=== PATIENT | male | born 1955 | race Caucasian/White ===

== ENCOUNTER 2018-02-04 09:53 | Emergency (ER) | payer OTHER ==
[~2018-02-04] VITALS: Ht 190.5 cm; Wt 180.5 kg
[~2018-02-04 09:53] MED LIST: ASPI81EC; ASPI81EC PO; ATOR40TA PO; Aspirin EC81 MG PO; CARV6.25 PO; CIPR500 PO; Clindamycin HC300 MG PO; Clotrimazole AF30 GM TOP; Culturelle1 CAP PO; FURO40 PO; INSUASPI SC; INSULANPEN SC; LEVEMIR FL100 UNIT/1 SC; LEVO750 PO; LISI5 PO; METF500 PO; Mupirocin22 GM TOP; NYST100P TOP; Novolog100 UNIT/2 SC; POTA10T PO; POTCHL20ER PO; PRED10 PO; Percocet 5-3251 EACH PO; SIMV40 PO
[2018-02-04] MEDS ORDERED: LISI20 PO (10:25)
[2018-02-04] MEDS ORDERED: PIOG15 PO (10:25)
[2018-02-04 10:37] LABS: BASOPHILS ABSOLUTE AUTO 0.06 K/mm3 (0.00-0.23); BASOPHILS PERCENT AUTO 1 % (0-2); EOSINOPHILS ABSOLUTE AUTO 0.12 K/mm3 (0.00-0.68); EOSINOPHILS PERCENT AUTO 1 % (0-6); Hematocrit 42.2 % (37.0-53.0); IMMATURE GRAN ABSOLUTE AUTO 0.05 K/mm3 (0.00-0.10); IMMATURE GRAN PERCENT AUTO 1 % (0-1); LYMPHOCYTES ABSOLUTE AUTO 1.38 K/mm3 (0.84-5.20); LYMPHOCYTES PERCENT AUTO 16 % (21-46); MONOCYTES ABSOLUTE AUTO 0.59 K/mm3 (0.16-1.47); MONOCYTES PERCENT AUTO 7 % (4-13); Mean Corpuscular HGB 27.7 pg (26.0-34.0); Mean Corpuscular HGB Conc 30.8 g/dL (31.5-36.5); Mean Corpuscular Volume 90 fL (80-100); Mean Platelet Volume 10.8 fL (9.1-12.4); NEUTROPHILS ABSOLUTE AUTO 6.46 K/mm3 (1.96-9.15); NEUTROPHILS PERCENT AUTO 75 % (41-73); Platelet Count 260 K/mm3 (150-400); RDW Coefficient Variation 14.6 % (11.7-14.2); White Blood Cell Count 8.66 K/mm3 (4.00-11.30)
[2018-02-04 10:51] LABS: Anion Gap 8 mmol/L (6-16); Blood Urea Nitrogen 17 mg/dL (8-24); Bun/Creatinine Ratio 25.1 (12.0-20.0); CO2, Blood 27 mmol/L (21-32); Calcium, Blood 8.9 mg/dL (8.5-10.1); Chloride, Blood 104 mmol/L (98-108); Creatinine, Blood 0.68 mg/dL (0.60-1.20); Glomerular Filtration Rate >60 (60-); Glucose, Blood 199 mg/dL (70-99); Potassium, Blood 4.4 mmol/L (3.5-5.5); Sodium, Blood 139 mmol/L (136-145); Troponin I <0.015 ng/mL (0.000-0.040)
[2018-02-04] MEDS ORDERED: Prinivil5 MG PO (12:20)
[2018-02-04] MEDS ORDERED: Lasix40 MG PO (12:20)
== END 2018-02-04 12:50 | disposition home or self-care (01) ==
LOC: ER 09:53
PROVIDERS: Emergency Medicine
DX: I11.0 Hypertensive heart disease with heart failure (principal); I50.9 Heart failure, unspecified; E66.01 Morbid (severe) obesity due to excess calories; E11.9 Type 2 diabetes mellitus without complications; I25.2 Old myocardial infarction; Z79.899 Other long term (current) drug therapy; Z79.4 Long term (current) use of insulin; Z79.82 Long term (current) use of aspirin; Z68.42 Body mass index [BMI] 45.0-49.9, adult
CPT/HCPCS: 36415; 71046; 80048; 83880; 84484; 85025; 93005; 93010; 99283

== ENCOUNTER → 2018-05-03 | Outpatient (CLI) | payer OTHER ==
[~2018-05-03] MED LIST changes: +LISI20 PO; +Lasix40 MG PO; +PIOG15 PO; +Prinivil5 MG PO
== END | disposition home or self-care (01) ==
LOC: LAB SHORT 09:50 → LAB 09:50
DX: L03.116 Cellulitis of left lower limb (principal)
CPT/HCPCS: 87070; 87077; 87147; 87186; 87205

== ENCOUNTER → 2019-02-25 | Outpatient (CLI) | payer OTHER ==
[~2019-02-25] MED LIST changes: +ALBU90OI INH; +SPIR25 PO; +TIOT18 INH
== END | disposition home or self-care (01) ==
LOC: LAB SHORT 14:41 → LAB HH 14:41
DX: E11.621 Type 2 diabetes mellitus with foot ulcer (principal); L97.422 Non-pressure chronic ulcer of left heel and midfoot with fat layer exposed; I87.2 Venous insufficiency (chronic) (peripheral)
CPT/HCPCS: 87070; 87075; 87076; 87077; 87147; 87185; 87186; 87205

== ENCOUNTER 2019-03-06 03:36 | Emergency (ER) | payer OTHER ==
[~2019-03-06] VITALS: Ht 193 cm; Wt 179.6 kg
[2019-03-06] MEDS ORDERED: BASAGLAR K100 UNIT/1 SC (04:28)
[2019-03-06] MEDS ORDERED: ALLO300 PO (04:29)
[2019-03-06] MEDS ORDERED: TIOT18 INH (04:32)
[2019-03-06] MEDS ORDERED: CARV25 PO (04:32)
[2019-03-06] MEDS ORDERED: SPIR25 PO (04:33)
[2019-03-06] MEDS ORDERED: SIMV40 PO (04:33)
[2019-03-06] MEDS ORDERED: FURO40 PO (04:33)
[2019-03-06] MEDS ORDERED: Novolog100 UNIT/1 SC (04:36)
[2019-03-06] MEDS ORDERED: LISI5 PO (04:37)
== END 2019-03-06 05:40 | disposition home or self-care (01) ==
LOC: ER 03:36
DX: L89.623 Pressure ulcer of left heel, stage 3 (principal); E11.622 Type 2 diabetes mellitus with other skin ulcer; Z79.4 Long term (current) use of insulin; Z79.899 Other long term (current) drug therapy; I25.2 Old myocardial infarction
CPT/HCPCS: 99283

== ENCOUNTER 2019-03-12 08:00 | Day surgery (SDC) | payer OTHER ==
[~2019-03-12 08:00] MED LIST changes: +ALLO300 PO; +BASAGLAR K100 UNIT/1 SC; +CARV25 PO; +Novolog100 UNIT/1 SC
== END 2019-03-12 22:47 | disposition home or self-care (01) ==
LOC: WOUND 08:00
DX: E11.621 Type 2 diabetes mellitus with foot ulcer (principal); L97.522 Non-pressure chronic ulcer of other part of left foot with fat layer exposed; L97.519 Non-pressure chronic ulcer of other part of right foot with unspecified severity; E11.622 Type 2 diabetes mellitus with other skin ulcer; L97.819 Non-pressure chronic ulcer of other part of right lower leg with unspecified severity; L97.821 Non-pressure chronic ulcer of other part of left lower leg limited to breakdown of skin; E11.21 Type 2 diabetes mellitus with diabetic nephropathy; I87.2 Venous insufficiency (chronic) (peripheral); E11.42 Type 2 diabetes mellitus with diabetic polyneuropathy; J44.9 Chronic obstructive pulmonary disease, unspecified; E13.59 Other specified diabetes mellitus with other circulatory complications; G47.33 Obstructive sleep apnea (adult) (pediatric); I11.0 Hypertensive heart disease with heart failure; I50.9 Heart failure, unspecified; E66.9 Obesity, unspecified; M10.9 Gout, unspecified
CPT/HCPCS: 87070; 87075; 87077; 87186; 87205; G0463

== ENCOUNTER 2019-03-20 14:21 | Day surgery (SDC) | payer OTHER | END 2019-03-20 23:03 | disposition home or self-care (01) | LOC: WOUND 14:21 | DX: E11.621 Type 2 diabetes mellitus with foot ulcer (principal); E11.622 Type 2 diabetes mellitus with other skin ulcer; L97.522 Non-pressure chronic ulcer of other part of left foot with fat layer exposed; L97.821 Non-pressure chronic ulcer of other part of left lower leg limited to breakdown of skin; E11.42 Type 2 diabetes mellitus with diabetic polyneuropathy; E11.21 Type 2 diabetes mellitus with diabetic nephropathy; I87.2 Venous insufficiency (chronic) (peripheral); I11.0 Hypertensive heart disease with heart failure; I50.9 Heart failure, unspecified; J44.9 Chronic obstructive pulmonary disease, unspecified; G47.33 Obstructive sleep apnea (adult) (pediatric); E66.9 Obesity, unspecified; Z68.42 Body mass index [BMI] 45.0-49.9, adult ==

== ENCOUNTER 2019-04-15 07:11 | Inpatient (IN) | payer OTHER ==
[~2019-04-15] VITALS: Ht 190.5 cm; Wt 145.5 kg
[2019-04-15 07:35] LABS: BASOPHILS ABSOLUTE AUTO 0.05 K/mm3 (0.00-0.23); BASOPHILS PERCENT AUTO 0 % (0-2); EOSINOPHILS PERCENT AUTO 0 % (0-6); Hematocrit 42.9 % (37.0-53.0); Hemoglobin 13.1 g/dL (13.5-17.5); IMMATURE GRAN ABSOLUTE AUTO 0.26 K/mm3 (0.00-0.10); IMMATURE GRAN PERCENT AUTO 1 % (0-1); LYMPHOCYTES ABSOLUTE AUTO 0.84 K/mm3 (0.84-5.20); LYMPHOCYTES PERCENT AUTO 4 % (21-46); MONOCYTES ABSOLUTE AUTO 1.28 K/mm3 (0.16-1.47); MONOCYTES PERCENT AUTO 6 % (4-13); Mean Corpuscular HGB 25.5 pg (26.0-34.0); Mean Corpuscular HGB Conc 30.5 g/dL (31.5-36.5); Mean Corpuscular Volume 84 fL (80-100); Mean Platelet Volume 10.8 fL (9.1-12.4); NEUTROPHILS ABSOLUTE AUTO 19.15 K/mm3 (1.96-9.15); NEUTROPHILS PERCENT AUTO 89 % (41-73); Platelet Count 263 K/mm3 (150-400); RDW Coefficient Variation 17.5 % (11.7-14.2); RDW Standard Deviation 52.6 fL (35.1-46.3); Red Blood Cell Count 5.13 M/mm3 (4.30-5.90); White Blood Cell Count 21.58 K/mm3 (4.00-11.30)
[2019-04-15 07:59] LABS: Albumin, Blood 2.4 g/dL (3.4-5.0); Albumin/Globulin Ratio 0.6 (0.8-1.8); Bun/Creatinine Ratio 40.8 (12.0-20.0); Calcium, Blood 8.8 mg/dL (8.5-10.1); Creatinine, Blood 1.3 mg/dL (0.60-1.20); Total Protein, Blood 6.4 g/dL (6.4-8.2); Troponin I 0.02 ng/mL (0.000-0.040)
[2019-04-15 08:02] LABS: PO2 Arterial 111 mmHg (80-100); pH Blood Arterial 7.31 (7.35-7.45)
[2019-04-15 08:41] LABS: Creatine Kinase MB 8.8 ng/mL (0.0-3.6); Creatine Kinase MB Index 0.5 (0.0-4.0)
[2019-04-15 08:57] LABS: International Normalized Ratio 1.85; Prothrombin Time Results 18.5 Sec (9.7-11.5)
[2019-04-15 12:31] LABS: Source, Urine Catheter
[2019-04-15 12:34] LABS: Appearance, Urine Hazy (Clear); Blood, Urine 5+ (Neg); Color, Urine Amber (P-Yellow); Glucose Qualitative, Urine Neg (Neg); Ketones, Urine 1+ (Neg); Leukocyte Esterase, Urine 1+ (Neg); Nitrite, Urine Neg (Neg); Protein, Urine 2+ (Neg); Specific Gravity, Urine 1.025 (1.003-1.022); Urobilinogen, Urine 2+ (Normal)
[2019-04-15 12:48] LABS: Bacteria Not Seen /hpf; Bilirubin, Urine 1+ (Neg); Mucus Light (0-Heavy); Squamous Epithelial Cells Rare /hpf (Few); White Blood Cells, Urine 0-2 /hpf (0-5)
--- NOTE | 2019-04-15 13:00 | NUR ---
ADMISSION / UPDATE: REPORT RECEIVED FROM JENNIFER Rebollar RN IN ED. PT ARRIVED TO ROOM ICU-04 AT APPROX 0945. ON ARRIVAL, THE PT IS DROWSY & AWAKENS ONLY BREIFLY TO VERBAL STIMULI. HE IS ANSWERING YES/NO QUESTIONS APPROPRIATELY W/ NODS WHEN PROMPTED. BIPAP IN PLACE, SETTINGS: 14/7 & 30% ON ARRIVAL. FIO2 HAS BEEN TITRATED UP HIGH 100% FOR DESATS. PT IS ALSO EXPERIENCING BREIF APNEIC PERIODS DESPITE BIPAP USE. DR PRETTY IS AWARE OF THIS. FIO2 BACK TO 60% & PT IS TOLERATING WELL W/ O2 SATS > 92%. WILL TITRATE DOWN ABLE. MONITOR SHOWS ST W/ HR 100s. HYPOTENSION TX W/ IVF BOLUS PER SEPSIS PROTOCOL & ALBUMIN ORDERED. LEVOPHED IS ORDERED IF NEEDED TO MAINTAIN MAP > 65. ABD SOFT, NONTENDER TO PALPATION. PT MORBIDLY OBESE AT BASELINE, BT x4. WISE PATENT/DRAINING, PLACED IN ED. BAG CHANGED TO UROMETER ONCE ARRIVED TO ICU. DRESSINGS TO VARIOUS WOUNDS HAVE BEEN CHANGED & PHOTO DOCUMENTATION HAS BEEN COMPLETED. PICC LINE PLACED BY JOE Gamble PICC RN. PLACEMENT VERIFIED BY DR PRETTY & LINE IS OKAY TO USE. FAMILY HAS BEEN AT BEDSIDE, ADMISSION COMPLETED TO [facility] OF ABILITY. MED REC NEEDS COMPLETED FAMILY IS UNSURE OF PT's CURRENT MEDS & DO NOT HAVE CURRENT LIST. SUICIDE RISK ASSESSMENT WILL ALSO NEED TO BE COMPLETED WHEN PT MORE ALERT. WILL CONTINUE TO MONITOR & UPDATE NEEDED.
--- NOTE | 2019-04-15 14:16 | NUR ---
Echocardiogram using 0.6ml of Definity contrast performed.
--- NOTE | 2019-04-15 15:07 | NUR ---
DR. HODGES: PROVIDER AT BEDSIDE TO EVAL PT. HE IS RECOMMENDING BKA AT THIS TIME, HE HAS SPOKEN W/ THE PT's SISTER REGARDING THIS. RECOMMENDS THAT DR. GROVE BE CONSULTED. DR PRETTY AWARE & CALL HAS BEEN PLACED TO DR GROVE.
--- NOTE | 2019-04-15 18:46 | NUR ---
SHIFT SUMMARY: PT HAS REMAINED DROWSY & WEARING BIPAP UNTIL APPROX 1830, AT WHICH TIME HE AWOKE & ASKED FOR THE BIPAP TO BE REMOVED. HE REQUESTED TO BE SITTING UP IN BED. STS HE IS CONFUSED ABOUT WHERE HE IS & DOES NOT REMEMBER FALLING AT HIS HOME LAST NIGHT OR ANYTHING SINCE THAT TIME. HE DOES REMEMBER TAKING HIS LANTUS AT APPROX 1700 YESTERDAY EVENING. CBGs HAVE BEEN > 100 x3 NOW & RISING. LS REMAIN COARSE ON L SIDE, DIM T/O. 5L NC O2 W/ SATS > 92%. MONITOR SHOWS ST W/ PVCs. HR 100s, REMAINS HYPOTENSIVE. HYPOACTIVE BT x4, PT REMAINS NPO BUT IS TOLERATING MOUTH SWABS & SIPS OF WATER WELL W/ NO COUGHING. WISE PATENT/DRAINING DARK YELLOW URINE. WOUND TO L HEEL HAS BEEN REDRESSED SINCE PROVIDER VISITS & EXAMINATIONS. WILL CONTINUE TO MONITOR & REPORT OFF TO ONCOMING RN.
--- NOTE | 2019-04-15 19:13 | NUR ---
Initial Visit: Palliative Care Consult for Infectious and Advanced Care Planning. Spoke with Pt's bedside nurse Shereen and she reports Pt is awake. Shereen requests palliative care to have discussion regarding AD/POLST. Pt is A&Ox4 and denies pain at this time. Pt denies anxiety. He does report occasional dyspnea. Family present during visit. Engaged in therapeutic discussion regarding goals of care including AD/POLST. Pt reports living at home alone and was receiving home health care before hospital admission. Pt reports having difficulty with dressing and bathing safely. Discussion was made regarding completing AD/POLST and Pt states that he is not interested in completing one at this time. Family reports they would like one of each left to discuss with Pt at a later time. Family also reqest assistance with obtaining assistance with care in the home for Pt. Family reports Pt is on a limited income and would like assistance with the medicaid process. Family and Pt report no other concerns at this time. Left palliative care contact information with family and instructed to call with any questions or concerns. Palliative Care will remain available.
--- NOTE | 2019-04-15 19:15 | NUR ---
[place] of Care: Patient alert and oriented, sitting up in bed, visiting with several family members. Oriented x4, denies dyspnea/SOB except when lying flat for repositioning, quickly recovers when HOB elevated. Denies pain, except for occasional cramping pain to left thigh/calf. Systolic BP 60's-70's, started levophed gtt at 2mcg/min at this time, will continue to monitor and titrate as indicated, all other VSS. PICC line to PIERRE patent and intact, infusing fluids without difficulty. Sims cath patent and intact, drain dark yellow urine. Wounds/dressings to lt ankle/heel and RLL C/D/I. Plan to change dressings and cleans wounds this shift. Call light in reach, makes needs known. Will continue to monitor for pain, safety, comfort.
--- NOTE | 2019-04-15 19:25 | NUR ---
Late Entry from initial visit. Placed social service referral for assistance with medicaid process.
--- NOTE | 2019-04-15 19:46 | NUR ---
Late Entry Son Júnior would like to be present when care mangers visit. Phone number is [phone]. Sister Michelle [phone].
[2019-04-16 03:49] LABS: BASOPHILS ABSOLUTE AUTO 0.04 K/mm3 (0.00-0.23); BASOPHILS PERCENT AUTO 0 % (0-2); EOSINOPHILS PERCENT AUTO 0 % (0-6); Hematocrit 42.7 % (37.0-53.0); IMMATURE GRAN ABSOLUTE AUTO 0.26 K/mm3 (0.00-0.10); IMMATURE GRAN PERCENT AUTO 1 % (0-1); LYMPHOCYTES ABSOLUTE AUTO 0.71 K/mm3 (0.84-5.20); LYMPHOCYTES PERCENT AUTO 4 % (21-46); MONOCYTES ABSOLUTE AUTO 1.04 K/mm3 (0.16-1.47); MONOCYTES PERCENT AUTO 5 % (4-13); Mean Corpuscular HGB 25.8 pg (26.0-34.0); Mean Corpuscular HGB Conc 30.4 g/dL (31.5-36.5); Mean Corpuscular Volume 85 fL (80-100); Mean Platelet Volume 11.4 fL (9.1-12.4); NEUTROPHILS ABSOLUTE AUTO 17.46 K/mm3 (1.96-9.15); NEUTROPHILS PERCENT AUTO 90 % (41-73); NRBC ABSOLUTE 0.04 K/mm3 (0.00-0.02); NRBC Auto 0.2 /100 WBC (0.0-0.2); Platelet Count 289 K/mm3 (150-400); RDW Standard Deviation 54.7 fL (35.1-46.3); Red Blood Cell Count 5.04 M/mm3 (4.30-5.90); White Blood Cell Count 19.51 K/mm3 (4.00-11.30)
[2019-04-16 04:06] LABS: Alanine Aminotransfer (ALT/SGP 217 U/L (12-78); Albumin, Blood 2.6 g/dL (3.4-5.0); Albumin/Globulin Ratio 0.8 (0.8-1.8); Alk Phos 123 U/L (50-136); Anion Gap 8 mmol/L (6-16); Aspartate Aminotrans (AST/SGOT 390 U/L (12-37); Bilirubin, Direct 0.6 mg/dL (0.0-0.3); Bilirubin, Indirect 0.3 mg/dL (0.1-0.7); Bilirubin, Total 0.9 mg/dL (0.1-1.0); Blood Urea Nitrogen 49 mg/dL (8-24); Bun/Creatinine Ratio 45.4 (12.0-20.0); CO2, Blood 25 mmol/L (21-32); Calcium, Blood 7.9 mg/dL (8.5-10.1); Chloride, Blood 103 mmol/L (98-108); Creatinine, Blood 1.08 mg/dL (0.60-1.20); Globulin, Blood 3.3 g/dL (2.2-4.0); Glomerular Filtration Rate >60 (60-); Glucose, Blood 238 mg/dL (70-99); Potassium, Blood 4.7 mmol/L (3.5-5.5); Sodium, Blood 136 mmol/L (136-145); Total Protein, Blood 5.9 g/dL (6.4-8.2)
[2019-04-16 04:18] LABS: International Normalized Ratio 1.75; Prothrombin Time Results 17.6 Sec (9.7-11.5)
--- NOTE | 2019-04-16 06:18 | NUR ---
Shift Summary: Patient slept well throughout shift, easily roused via verbal stimuli, oriented x4. Continues to deny pain, discomfort, SOB, or dyspnea. Mild SOB when lying flat, quickly recovers. ON 4L/NC throughout majority of shift, O2-96-100%. Placed on BiPAP late this 12/05/40%, per signs of severe central sleep apnea. Tolerates BiPAP mask without difficulty, but continues to have some periods of apnea. Levophed gtt titrated up to 8mcg/min then down to 6mcg/min, effective to increase MAP's to 70's-90's. No changes noted to leg wounds (see assumption note). Dressings changed this shift to bilateral leg wounds, new dressings remain C/D/I. PICC line to PIERRE remains patent and intact. Sims cath remains patent and intact, draining dark yellow urine. Sleeping at this time, makes needs known. Will continue to monitor until report to day shift RN.
--- NOTE | 2019-04-16 08:15 | NUR ---
BEGINNING OF SHIFT Assumed care at 0700 with Nate LANCASTER. Bedside report recieved from Tristen LANCASTER. Pt in bed, sleeping and wearing BiPAP at time of report. BiPAP 14/7 and 25% FiO2. BiPAP removed for shift assessment. Pt placed on 4 LPM NC, which he states is his baseline O2 use. Pt alert and oriented x 3. Answers questions appropriately, follows directions, and verbalizes needs. PICC to PIERRE infusing 6 mcg/min levophed, 150 mL/hr LR, 150 mL/hr D5 1/2NS + 20 KCl. Sims catheter in place for strict I&O measurement, draining clear yellow urine. Pt has redness to perineal folds. Extensive wounds to BLE not yet visualized by this RN. Photos in chart. Pedal pulses present to BLE with doppler. Atrial flutter per monitor with approx 11 PVCs per minute. Pt inquires about eating breakfast. This RN discusses pt's concern with Dr De Guzman. Pt okay to have soft, cardiac, ADA diet. This RN assisted pt to brush teeth. Able to do this task in bed with minimal assistance.
--- NOTE | 2019-04-16 09:00 | NUR ---
DR MAINE Lam in to see patient. No surgical intervention planned today. Provider states he will be in tomorrow to reevaluate.
--- NOTE | 2019-04-16 11:45 | NUR ---
UPDATE Dr Ragland in to speak with patient and family. This RN discussed pt's blood sugars. Requested order for low-sliding scale insulin. New orders given.
--- NOTE | 2019-04-16 16:50 | NUR ---
SHIFT SUMMARY At this time, levophed has been titrated off. SBP has ranged between 105 and 115 during downward titration. MAP has ranged between 85 and 95. Pt has not worn BiPAP since it was removed before breakfast. Per Dr Ragland, pt does not have to wear BiPAP while he is awake, but pt is encouraged to wear it while sleeping. No events per heart monitor. Pt has been in regular rhythm around 115 BPM for entire shift. No discernable P wave in rhythm. Rhythm resembles atrial flutter. Some PVCs noted - about 11 per minute. Pt remains alert and oriented. No complaints of pain this shift. Pt has not gotten OOB this shift. Pt is not motivated to perform ADLs independently. For lunch, pt did not want to sit up in bed to eat and asked this RN to feed him. This RN set up meal tray and repositioned pt, encouraged pt to feed himself- pt was able to safely and efficiently feed himself. Wound care done for BLE. RLE has three large areas missing skin. Nonadherent dressing, abd pad, and kerlex removed with moderate amounts of serosanguinous and purulent drainage removed from RLE. Wound beds are pink. Wound edges are unremarkable. Surrounding skin is pink and warm. Site cleaned with Skintegrity wound cleanser, dried with sterile gauze, and dressed with nonadherent dressing, abd pad, and kerlex. ABD pad and gauze removed from left foot. Dressing has a large amount of odiferous purulent and serosanguinous drainage. Wound bed is brown with some slough. Wound borders are macerated in some areas and hardenend in other areas. Surrounding skin is pale. Site cleaned with Skintegrity wound cleanser, dried with sterile gauze, and dressed with abd pad and kerlex. Photographs of wounds obtained on 04/15/19 are present in pt's chart. Wounds are unchanged in appearace from these photographs. Pedal and post tibial pulses present per doppler. Capillary refill less than 3 seconds BLE. Pt stated "I feel nothing" when asked if he was having pain during wound care. Family has remained at bedside for majority of shift. Family involved in patient's care and often offers several questions regarding patient's plan of care. With pt's verbal consent, plan of care discussed with patient and family to satisfaction. Will continue to closely monitor until care handoff and bedside report with oncoming RN.
--- NOTE | 2019-04-16 19:30 | NUR ---
ASSUMED CARE PT RESTING IN ROOM COMFORTABLY AT THIS TIME WITH FAMILY AT BEDSIDE. PER DAY SHIFT PT HAS BEEN AOX4 AND ON 5L NC T/O DAY. WOUNDS TO R AMBROSIO AND L HEEL WAS DRESSED WITH NEW DRESSINGS DURING SHIFT. RESP IS TACHY AND SHALLOW ON 5L NC W/ SATS >91%. PT REPORTS SOME NAUSEA AT START OF SHIFT, PT WAS MEDICATED FOR NAUSEA AT APPROX 1800. PT PROVIDED W/ SPRITE PER REQUEST IN ATTEMPT TO SETTLE STOMACH. LR INFUSING AT 60ML/HR, NS INFUSING TKO BOTH IN PICC KAYLYN TO PIERRE. ABX INFUSING PIGGY BACKS ON NS. WISE CATH IN POLACE AND DRAINING DARK YELLOW URINE TO GRAVITY. PT HAS YEASTY FOLDS, AND WILL PLAN TO GIVE AT LEAST PARTIAL BED BATH AND APPLY NYSTATIN POWDER. PT DENIES OTHER NEED SAT THIS TIME. CALL LIGHT IN REACH.
[2019-04-17 03:56] LABS: BASOPHILS ABSOLUTE AUTO 0.01 K/mm3 (0.00-0.23); BASOPHILS PERCENT AUTO 0 % (0-2); EOSINOPHILS PERCENT AUTO 0 % (0-6); Hematocrit 38.8 % (37.0-53.0); Hemoglobin 11.7 g/dL (13.5-17.5); IMMATURE GRAN ABSOLUTE AUTO 0.31 K/mm3 (0.00-0.10); IMMATURE GRAN PERCENT AUTO 2 % (0-1); LYMPHOCYTES ABSOLUTE AUTO 0.79 K/mm3 (0.84-5.20); LYMPHOCYTES PERCENT AUTO 6 % (21-46); MONOCYTES ABSOLUTE AUTO 0.67 K/mm3 (0.16-1.47); MONOCYTES PERCENT AUTO 5 % (4-13); Mean Corpuscular HGB 25.9 pg (26.0-34.0); Mean Corpuscular HGB Conc 30.2 g/dL (31.5-36.5); Mean Corpuscular Volume 86 fL (80-100); Mean Platelet Volume 11.2 fL (9.1-12.4); NEUTROPHILS ABSOLUTE AUTO 11.58 K/mm3 (1.96-9.15); NEUTROPHILS PERCENT AUTO 87 % (41-73); NRBC ABSOLUTE 0.15 K/mm3 (0.00-0.02); NRBC Auto 1.1 /100 WBC (0.0-0.2); Platelet Count 214 K/mm3 (150-400); RDW Coefficient Variation 18.1 % (11.7-14.2); RDW Standard Deviation 55.2 fL (35.1-46.3); Red Blood Cell Count 4.52 M/mm3 (4.30-5.90); White Blood Cell Count 13.36 K/mm3 (4.00-11.30)
[2019-04-17 04:11] LABS: International Normalized Ratio 1.85; Prothrombin Time Results 18.5 Sec (9.7-11.5)
[2019-04-17 04:17] LABS: Alanine Aminotransfer (ALT/SGP 260 U/L (12-78); Albumin, Blood 2.5 g/dL (3.4-5.0); Albumin/Globulin Ratio 0.9 (0.8-1.8); Alk Phos 151 U/L (50-136); Anion Gap 8 mmol/L (6-16); Aspartate Aminotrans (AST/SGOT 398 U/L (12-37); Bilirubin, Total 0.9 mg/dL (0.1-1.0); Blood Urea Nitrogen 37 mg/dL (8-24); Bun/Creatinine Ratio 46.4 (12.0-20.0); CO2, Blood 24 mmol/L (21-32); Chloride, Blood 107 mmol/L (98-108); Globulin, Blood 2.7 g/dL (2.2-4.0); Glomerular Filtration Rate >60 (60-); Glucose, Blood 123 mg/dL (70-99); Potassium, Blood 4.9 mmol/L (3.5-5.5); Sodium, Blood 139 mmol/L (136-145); Total Protein, Blood 5.2 g/dL (6.4-8.2)
--- NOTE | 2019-04-17 05:55 | NUR ---
SHIFT SUMMARY PT SLEEPING IN ROOM APPEARS TO BE COMFORTABLE AT THIS TIME. PT IS AOX3, WAS LETHARGIC AT START OF SHIFT, AND HAS REMAINED LETHARGIC WITH SOME CONFUSION AT TIMES. PT PULLED AT CARDIAC MOBITOR WIRES, O2 AND BIPAP MASK T/O NIGHT. PT WAS REDIRECTABLE, BUT CONTINUED TO HAVE PERIODS OF CONFUSION AND LETHARGY. PT HAD EPISODE OF N/V AND WAS MEDICATED PER EMAR. PARTIAL BED BATH WAS PERFORMED TO ABD FOLDS, GROIN, AND LOWER EXT. NYSTATIN WAS APPLIED TO AREA. PT REPORTED FEELING "LESS ITCHY". PT WAS TURNED Q2HRS W/ LIFT AND PILLOWS ROTATED FROM L TO R HIP TO EASE PRESSURE TO BACKSIDE. DENIES OTHER NEEDS AT THIS TIME. CALL LIGHT IN REACH.
--- NOTE | 2019-04-17 08:50 | NUR ---
PT IS CURRENTLY RESTING W/O DISTRESS AND DENIES PAIN OR SOB. NO APPARENT NAUSEA. PT CBG NOTED. HEELS FLOATED AND R HEEL HAS STRONG ODER. VS NOTED AND NO PRESSORS. LR AT 60ML AND TKO OTHER LINE WITH ABX. PT IS IN AFIB/FLUTTER AT UPPER 90 LOW 100 RAT CURRENTLY. FAMILY IN VISITING.
--- NOTE | 2019-04-17 10:22 | NUR ---
0945 PT C/O AND NOTED TO HAVE NAUSEA. PT BREATHIING SOMEWHAT SHALLOW AND PLACED ON BIPAP 14/7 25% AND WILL FOLLOW.
--- NOTE | 2019-04-17 10:48 | NUR ---
PT L HEEL REDSGED. MINIMAL BI-LATERAL WOUND SITE OOZING, BUT MORE FOWL SMELLING DRAINAGE NOTED FROM HEEL WITH DARK BROWN/BLACK TISSUE YET NOTED AT SITE. DR CANSECO IN TO SEE SITE AND REQUESTING ORTHO TO VISIT DAILY. SITE CLEANED WITH SKIN TEGRITY AND RE-DSGED.
[2019-04-17 11:22] LABS: Base Excess Venous 1.9 mmol/L; Bicarbonate Venous 24.6 mmol/L (24.0-30.0); PCO2 Venous 51.8 mmHg (38-42); PO2 Venous 38.5 mmHg (38-42); pH Blood Venous 7.34 (7.34-7.37)
[2019-04-17 11:29] LABS: Vancomycin, Trough 25.9 ug/mL (5.0-10.0)
--- NOTE | 2019-04-17 13:51 | NUR ---
4407 DR GROVE OFFICE CALLED AND SHARED DR CANSECO REQUEST FOR HIM TO SEE THIS PT YET DAILY.
--- NOTE | 2019-04-17 18:07 | NUR ---
PT IS RESTING WELL ON 5LNC WITH NOTED SATS. FAMILY IS IN ROOM TO VISIT. PT I/O NOTED, WELL VS. PT HAS SOME NAUSEA BUT IT PASSED W/O MEDICATION. PT WAS ABLE TO COUGH UP SOME CREAMY SECREATIONS EARLIER HE CLEARED HIS UPPPER AIRWAY. NO RESP DISTRESS IS NOTE WITH O2 5L AND HR LOW 100'S NOTED.
--- NOTE | 2019-04-17 20:54 | NUR ---
[place] of Care: Care assumed at 1900hr. Patient sleeping, roused via verbal stimuli. Very drowsy, quickly falls back to sleep, but oriented x4 when awake. Denies pain, discomfort, SOB or dyspnea. VSS, O2-96-98% on 4L/NC. Appears to have congested upper airway, congested cough, clears with coughing. PICC line to PIERRE patent and intact. Sims cath patent and intact, draining dark yellow urine. Dressings to bilateral feet/leg wounds C/D/I, plan to change dressings and cleanse wounds this shift per orders. Will place patient on BiPAP mask if indicated. Call light in reach, makes needs known. Will continue to monitor for pain, comfort, safety.
--- NOTE | 2019-04-18 01:03 | NUR ---
[place] OF CARE: PATIENT CURRENTLY APPEARS TO BE SLEEPING WELL. BIPAP IN PLACE. PATIENT DOES NOT APPEAR TO HAVE ANY NEEDS AT THIS TIME. WILL CONTINUE TO MONITOR PATIENT.
--- NOTE | 2019-04-18 01:04 | NUR ---
Transfer of Care: Bedside report given to Moe LANCASTER. Patient sleeping and appears comfortable, VSS.
[2019-04-18 03:40] LABS: BASOPHILS ABSOLUTE AUTO 0.03 K/mm3 (0.00-0.23); BASOPHILS PERCENT AUTO 0 % (0-2); EOSINOPHILS ABSOLUTE AUTO 0.01 K/mm3 (0.00-0.68); EOSINOPHILS PERCENT AUTO 0 % (0-6); Hematocrit 47.1 % (37.0-53.0); IMMATURE GRAN ABSOLUTE AUTO 0.27 K/mm3 (0.00-0.10); IMMATURE GRAN PERCENT AUTO 2 % (0-1); LYMPHOCYTES ABSOLUTE AUTO 1.16 K/mm3 (0.84-5.20); LYMPHOCYTES PERCENT AUTO 9 % (21-46); MONOCYTES ABSOLUTE AUTO 0.76 K/mm3 (0.16-1.47); MONOCYTES PERCENT AUTO 6 % (4-13); Mean Corpuscular HGB 25.8 pg (26.0-34.0); Mean Corpuscular HGB Conc 29.7 g/dL (31.5-36.5); Mean Corpuscular Volume 87 fL (80-100); NEUTROPHILS PERCENT AUTO 82 % (41-73); NRBC ABSOLUTE 0.16 K/mm3 (0.00-0.02); NRBC Auto 1.3 /100 WBC (0.0-0.2); Platelet Count 267 K/mm3 (150-400); RDW Coefficient Variation 18.9 % (11.7-14.2); RDW Standard Deviation 56.8 fL (35.1-46.3); Red Blood Cell Count 5.42 M/mm3 (4.30-5.90); White Blood Cell Count 12.53 K/mm3 (4.00-11.30)
[2019-04-18 04:06] LABS: Alanine Aminotransfer (ALT/SGP 279 U/L (12-78); Albumin, Blood 2.8 g/dL (3.4-5.0); Albumin/Globulin Ratio 0.8 (0.8-1.8); Alk Phos 274 U/L (50-136); Anion Gap 4 mmol/L (6-16); Aspartate Aminotrans (AST/SGOT 261 U/L (12-37); Bilirubin, Total 0.8 mg/dL (0.1-1.0); Blood Urea Nitrogen 37 mg/dL (8-24); Bun/Creatinine Ratio 46.1 (12.0-20.0); CO2, Blood 29 mmol/L (21-32); Calcium, Blood 8.8 mg/dL (8.5-10.1); Chloride, Blood 107 mmol/L (98-108); Globulin, Blood 3.7 g/dL (2.2-4.0); Glomerular Filtration Rate >60 (60-); Glucose, Blood 131 mg/dL (70-99); Magnesium, Blood 2.3 mg/dL (1.6-2.4); Phosphorus, Blood 2.7 mg/dL (2.5-4.9); Potassium, Blood 5.5 mmol/L (3.5-5.5); Sodium, Blood 140 mmol/L (136-145); Total Protein, Blood 6.5 g/dL (6.4-8.2)
--- NOTE | 2019-04-18 06:05 | NUR ---
SHIFT SUMMARY: PATIENT DROWSY THROUGHOUT THE NIGHT. PATIENT WOULD WAKE UP TO VERBAL STIMULI AND ANSWER SHORT QUESTIONS BUT PATIENT DID NOT CARRY ON A CONVERSATION WITH STAFF. PATIENT TURNED Q2H. DRESSINGS TO BILATERAL LEGS CHANGED AT APPROX 0400 THIS AM. PATIENT HAS BEEN ON AND OFF THE BIPAP THROUGHOUT THE NIGHT. PATIENT FREQUENTLY REQUESTED TO BE OFF THE BIPAP LAST NIGHT BUT HAS BEEN SLEEPING WITH IT ON FOR APPROX THE LAST HOUR AT THIS TIME. PATIENT WAS ON 2L VIA N/C WHEN HE WAS OFF THE BIPAP LAST NIGHT. VITAL SIGNS CHARTED. WILL CONTINUE TO MONITOR PATIENT AND REPORT TO ONCOMING RN.
--- NOTE | 2019-04-18 12:01 | NUR ---
REASSESSMENT: PT HAS BEEN RESTING IN BED THROUGHOUT THE MORNING. HE AWAKES WHENS POKEN TOO AND STAYS AWAKE DURING MEALS, BUT OTHERWISE HE HAS BEEN FALLING BACK ASLEEP WHEN LEFT UNDISTURBED. LUNGS ARE CLEAR, DIM IN THE BASES. HE TOLERATES BREAKS FROM THE BIPAP ON JUST 1L/NC. HE WAS OFF FOR ABOUT AN HOUR THIS MORNING AND IS CURRENTLY OFF AGAIN FOR LUNCH. HE IS IN AFIB, RATE GOES UP TO THE 1 TEENS WHEN AWAKE AND EATING, BP STABLE. WISE ALREADY HAD 1750ML OUT, CLEAR YELLOW. LARGE LIQUID INCONTINENT BM THIS MORNING, RECTAL TUBE PLACED, DR CANSECO AWARE. PTS WOUNDS ARE MALODOROUS. DRESSING CHANGED THIS MORNING. FAMILY IS AT THE BEDSIDE AND WERE UPDATED BY DR. CANSECO.
--- NOTE | 2019-04-18 17:30 | NUR ---
SHIFT SUMMARY: PT HAD NO ACUTE EVENTS THIS SHIFT. HE WAS DROWSY IN THE MORNING, FALLING ASLEEP IF NOT BEING TALKED TO AND SLOW TO RESPOND. AFTER A NAP THIS AFTERNOON HE IS MORE ALERT AND RESPONDING QUICKER, BUT THERE IS STILL A DELAY. HIS LUNGS ARE CLEAR, DIM IN THE BASES. MAINTAINS SPO2 GREATER THAN 90 ON 1-2L/NC. HE HAS TOLERATED BEING OFF OF THE BIPAP ALL AFTERNOON. AFIB WITH RATE UP TO THE 120S WHILE AWAKE, BP STABLE. WOUNDS ON HIS FEET ARE STABLE, DRESSING CHANGED TODAY. SMALL AMT OF BROWN DRAINAGE ON L HEEL DRESSING THIS EVENING. FAMILY HAS BEEN AT THE BEDSIDE FOR MOST OF THE DAY. THEY HAVE BEEN IRRITABLE AT TIMES ABOUT PT SLIDING DOWN IN THE BED REQUESTING PT TO BE REPOSITIONED MUCH EVERY 30 MINUTES, BUT THEN UPSET ABOUT STAFF USING THE CEILING LIFT TO REPOSITION PT. SAFETY MEASURES REGARDING THE CEILING LIFT AND PT'S WEIGHT DISCUSSED WITH THE FAMILY, WELL THE PHYSICS OF THE BED CAUSING PT TO SLIDE DOWN IF HE WANTS HIS HEAD RAISED. THIS QUIETED FAMILY, SOME BUT THEY STILL EXPRESS THEIR DISLIKE WITH THE SITUATION.
--- NOTE | 2019-04-18 20:28 | NUR ---
ASSUMED CARE RECIEVED REPORT FROM WHITNEY. PT IS AWAKE AND SEEMS TO BE ALERT AND ORIENTED; ALTHOUGH SLIGHTLY CONFUSED. CURRENTLY RECEIVING NS TKO. PT HAS A WISE HANGING TO GRAVITY, AND A PATENT RECTAL TUBE. WOUND DRESSINGS ARE CDI. PT SAT'ING MID 90'S ON 2L NC. BED LOW AND LOCKED, CALL LIGHT WITHIN REACH. SON AT BEDSIDE.
[2019-04-19 04:05] LABS: Anion Gap 3 mmol/L (6-16); Blood Urea Nitrogen 30 mg/dL (8-24); Bun/Creatinine Ratio 40.7 (12.0-20.0); CO2, Blood 33 mmol/L (21-32); Calcium, Blood 8.6 mg/dL (8.5-10.1); Chloride, Blood 106 mmol/L (98-108); Creatinine, Blood 0.74 mg/dL (0.60-1.20); Glomerular Filtration Rate >60 (60-); Glucose, Blood 176 mg/dL (70-99); Magnesium, Blood 1.9 mg/dL (1.6-2.4); Potassium, Blood 4.8 mmol/L (3.5-5.5); Sodium, Blood 142 mmol/L (136-145)
--- NOTE | 2019-04-19 05:28 | NUR ---
SHIFT SUMMARY NO SIGNIFICANT EVENTS OVERNIGHT. PT IS ON BIPAP 14/06, 25%; SAT'ING MID 90'S. PT SLEPT THROUGHOUT NIGHT. VANC AND ZOZYN GIVEN OVERNIGHT; NS TKO CURRENTLY. REMAINS IN AFIB HR IN LOW 100'S TO 120'S. BP HAS BEEN ELEVATED BUT STABLE. LUNGS CLEAR, AND DIMINISHED IN BASES. WOUND DRESSINGS HAVE BEEN CDI ALL NIGHT. AFEBRILE. NO PAIN. NO NUMBNESS/TINGLING. DOES NOT LIKE TO USE LIFT; CAN SHIFT HIS BUT ON HIS OWN, BUT WOULD BENEFIT FROM TURNING. BED LOW AND LOCKED, CALL LIGHT WITHIN REACH.
--- NOTE | 2019-04-19 08:15 | NUR ---
INITIAL ASSESSMENT PATIENT ALERT AND ORIENTED EXCEPT TO CURRENT PRESIDENT. PATIENT HAS FLAT AFFECT, APPEARS MORE ANXIOUS AT TIMES. PATIENT SLOW TO RESPOND. PATIENT STATES HE HAS N/T IN LOWER EXTREMITIES. PATIENT WEAK, CEILING LIFT NEEDED TO MOVE. AFEBRILE. PATIENT DENIES PAIN AT THIS TIME. PATIENT SATTING 90% OR GREATER ON 2 L NC. PATIENT STATES HE WEARS 4 L NC AT HOME. LUNGS CLEAR IN UPPER LOBES, DIMINISHED IN LOWER LOBES. PATIENT STATES HE HAS HAD OCCASIONAL, DRY COUGH. PATIENT HAS BEEN WEARING BIPAP 14/7, 25% WHILE SLEEPING. PATIENT IN A. FLUTTER WITH OCCASIONAL PVCS NOTED. HR 1-TEENS TO 120S. BP STABLE. 2+ EDEMA NOTED TO BLES, 1+ EDEMA NOTED TO BUES. ABDOMEN DISTENDED- PATIENT REPORTS NORMAL. ABD FIRM, NONTENDER WITH NORMOACTIVE BS NOTED. FLEXISEAL IN PLACE DRAINING BROWN, LIQUID STOOL. WISE DRAINING YELLOW COLORED URINE. PATIENT RECEIVING SCHEDULED LASIX. PATIENT HAS BRUISING AND SKIN TAGS SCATTERED ALL OVER BODY. WOUND TO L HEEL- DRESSING C/D/I. ABRASION TO R AMBROSIO. SMALL SPOTS OF BRUISING NOTED ALL OVER BODY BUT ESPECIALLY TO LEFT AXILLA AREA- DR. OTERO NOTIFIED. NS TKO. BED LOW, CALL LIGHT IN REACH. WILL CONTINUE TO MONITOR PATIENT FREQUENTLY THROUGHOUT SHIFT.
[2019-04-19] MEDS ORDERED: METF500 PO (10:40)
[2019-04-19] MEDS ORDERED: TIOT18 INH (10:41)
[2019-04-19 11:23] LABS: Vancomycin, Trough 17.9 ug/mL (5.0-10.0)
--- NOTE | 2019-04-19 12:05 | NUR ---
PATIENT RESTING QUIETLY IN BED. AFEBRILE. NO COMPLAINTS OF PAIN. PATIENT SATTING 90% AND GREATER ON 1 L NC. PATIENT IN A. FLUTTER WITH OCCASIONAL PVCS. HR IN THE 120S. BP STABLE. NO OTHER ACUTE CHANGES TO NOTE ON AT THIS TIME. WILL CONTINUE TO MONITOR.
--- NOTE | 2019-04-19 15:35 | NUR ---
REPORT GIVEN TO NURSE, PRECIOUS CASTANO, WHO IS ASSUMING PATIENT CARE AT THIS TIME.
--- NOTE | 2019-04-19 19:34 | NUR ---
SHIFT SUMMARY. NO ACUTE CHANGES SINCE TAKING OVER CARE OF PT APROX 1530. PT'S SISTER HAS BEEN AT THE BEDSIDE MOST OF THE AFTERNOON. PT'S VS STABLE. DRESSING CHANGE WAS DONE TO THE PT'S LEFT HEEL, RIGHT AMBROSIO AND RIGHT ELBOW. CALL LIGHT IN REACH, BED IS LOCKED AND LOW WILL CONTINUE TO MONITOR UNTIL REPOT IS GIVEN TO ONCOMING RN.
--- NOTE | 2019-04-19 22:31 | NUR ---
ASSUMED CARE OF PATIENT AT APPROXIMATELY 1900 FROM PRECIOUS Saleh RN. PATIENT ALERT AND ORIENTED TO SELF, FAMILY AND LOCATION. PATIENT UNABLE TO STATE DATE, PRESIDENT AND UNSURE OF EVENTS. PATIENT'S SISTER AT BEDSIDE DURING BEDSIDE REPORT. PATIENT REPORTS HE HAS A LACERATION ON HIS FOOT. PATIENT DENIES PAIN, TINGLING, DIZZINESS AND NAUSEA. PATIENT WEAK; CAN ASSIST DURING Q2H TURNS; REFUSES AT TIMES. PATIENT REPORTS NUMBNESS TO FEET THAT IS CHRONIC. PATIENT HAS URINARY CATHETER IN PLACE DRAINING; RECTAL TUBE IN PLACE DRAINING LOOSE BROWN STOOL; LEAKS AT TIMES; MEPILEX PLACED ON COCCYX; WOUNDS ON RIGHT CALF AND LEFT FOOT; REPORTED DRESSING CHANGED TODAY. AFLUTTER ON HEART MONITOR WITH A RATE IN 120'S; WILL GIVEN PRN MEDICATION; OXYGEN SATURATION ABOVE 90% ON 1-2LPM VIA NC OR 4LPM WHEN LAYING FLAT; BIPAP WORN FOR ABOUT AN HOUR; REPORTS DRY NOSE; REQUESTED SALINE SPRAY FROM MARNIE GARDNER. MAX ASSIST FOR TURNING; LIFT IN ROOM. PICC INFSING ABX THEN TKO. PATIENT IN BARIATRIC BED. PATIENT CURRENTLY RESTING IN BED; CALL LIGHT IN REACH; BED IN LOWEST POSISTION; WILL CONTINUE TO MONITOR AND ASSESS UNTIL END OF SHIFT.
--- NOTE | 2019-04-20 03:26 | NUR ---
CALLED DR. BERNAL ABOUT CONCERN OVER RED RASH SPREADING ON PATIENT'S LEFT ARM; SITE WAS MARKED AT START OF SHIFT AND THAT AREA APPEARS NOT TO BE SPREADING BUT BELOW THE SITE ARMAS APPEARS TO BE SPREADING; NOT ITCHING; RED COLOR; AREAS APPEAR RAISED AND ALSO ON RIGHT ARMPIT AREA. PATIENT HAS NOT COMPLAINED ABOUT RASH. WILL CONTINUE TO MONITOR AND ASSESS. OTHER UPDATES: PATIENT WAS GIVEN PRN DOSE OF LOPRESSOR IV FOR HEART RATE SUSTAINING ABOVE 110 WITH LITTLE IMPROVMENT; HEART RATE WAS 120 FOR A MINUTE OR LESS; BACK UP TO 120'S. PATIENT REFUSING BIPAP; WEARS FOR A FEW MINUTES; REPORTS HE WAS TOLD TO WEAR ONE AT HOME BUT CANNOT TOLERATE. PATIENT MOVING LEG OFF SIDE OF BED AT TIMES; HAS SLEPT LESS THAN THREE HOURS. WILL CONTINUE TO MONITOR AND ASSESS UNTIL END OF SHIFT; NO OTHER ACUTE CHANGES TO REPORT.
--- NOTE | 2019-04-20 04:05 | NUR ---
DR. BERNAL WAS BEDSIDE WITH PATIENT. RASH VASCULITIS; TREATMENT IS TO TREAT INFECTION. PATIENT CONFIRMED TO DR. BERNAL THAT RASH DOESN'T HURT OR ITCH.
[2019-04-20 04:08] LABS: Hematocrit 46.4 % (37.0-53.0); Hemoglobin 13.9 g/dL (13.5-17.5); Mean Corpuscular HGB 25.6 pg (26.0-34.0); Mean Corpuscular Volume 86 fL (80-100); Mean Platelet Volume 10.5 fL (9.1-12.4); Platelet Count 278 K/mm3 (150-400); RDW Coefficient Variation 19.3 % (11.7-14.2); RDW Standard Deviation 57.1 fL (35.1-46.3); Red Blood Cell Count 5.43 M/mm3 (4.30-5.90); White Blood Cell Count 10.45 K/mm3 (4.00-11.30)
[2019-04-20 04:24] LABS: Anion Gap 2 mmol/L (6-16); Blood Urea Nitrogen 27 mg/dL (8-24); Bun/Creatinine Ratio 40.4 (12.0-20.0); CO2, Blood 36 mmol/L (21-32); Calcium, Blood 8.6 mg/dL (8.5-10.1); Chloride, Blood 104 mmol/L (98-108); Creatinine, Blood 0.67 mg/dL (0.60-1.20); Glomerular Filtration Rate >60 (60-); Glucose, Blood 236 mg/dL (70-99); Potassium, Blood 4.7 mmol/L (3.5-5.5); Sodium, Blood 142 mmol/L (136-145)
[2019-04-20 05:42] LABS: BAND PERCENT MAN 6 % (0-8); BASOPHILS PERCENT MAN 0 % (0-2); EOSINOPHILS PERCENT MAN 2 % (0-6); LYMPHOCYTES ABSOLUTE MAN 1.14 K/mm3 (0.84-5.20); LYMPHOCYTES PERCENT MAN 11 % (21-46); MONOCYTES ABSOLUTE MAN 0.73 K/mm3 (0.16-1.47); MONOCYTES PERCENT MAN 7 % (4-13); MYELOCYTE ABSOLUTE MAN 0.31 K/mm3 (0.00-0.00); MYELOCYTE PERCENT MAN 3 % (0-0); NEUTROPHILS ABSOLUTE MAN 8.04 K/mm3 (1.96-9.15); SEG NEUTROPHILS PERCENT MAN 71 % (41-73); TOTAL CELLS COUNTED 100
--- NOTE | 2019-04-20 06:12 | NUR ---
PATIENT HAD CHEST XRAY THIS AM; NO OTHER ACUTE CHANGES TO REPORT. PATIENT SLEPT LESS THAN FOUR HOURS LAST NIGHT; OCCASIONALLY MOANING. WILL CONTINUE TO MONITOR AND ASSESS UNTIL END OF SHIFT.
--- NOTE | 2019-04-20 12:19 | NUR ---
REASSESSMENT: PT HAS BEEN ALERT AND ORIENTED THIS MORNING. HE GOT UP TO THE CHAIR WITH THE LIFT, WORKED WITH PHYSICAL THERAPY AND THEN WENT BACK TO BED AFTER ABOUT AN HOUR. HIS LUNGS REMAIN CLEAR, DIM IN THE BASES, ONLY ON 1-2L/NC. AFIB WITH RATE IN THE 120S, DR. OTERO AWARE AND ADJUSTED HIS MEDICATION. RECTAL TUBE REMOVED STOOL WAS LEAKING AROUND IT AND BARELY DRAINING THROUGH IT. THE TUBING WAS ALSO CAUSING IRRITATION ON PT'S BUTTOCKS. WISE DRAINING CL YELLOW URINE. DRESSINGS OVER WOUNDS ON LEGS CHANGED THIS MORNING. L HEEL CONTINUES TO BE MALODOROUS.PT'S SON AND SISTER HAVE BEEN IN. BOTH WERE UPDATED BY DR. OWENS AND ALL QUESTIONS HAVE BEEN ANSWERED.
--- NOTE | 2019-04-20 16:43 | NUR ---
SHIFT SUMMARY: PT HAS HAD NO ACUTE EVENTS THIS SHIFT. HE HAS BEEN ALERT AND ORIENTED THROUGHOUT THE SHIFT. LUNGS REMAIN DIM BUT CLEAR, ON 1-2L/NC. BP STABLE, HR 120-130. PT HAS BEEN MORE COMFORTABLE SINCE RECTAL TUBE CAME OUT. STOOL SAMPLE SENT TO LAB FOR C.DIFF TESTING THIS MORNING, BUT NO RESULTS YET. CHECKED WITH LAB AND THEY SAID THEY ARE HAVING TROUBLE WITH THE MACHINE SO THEY WON'T HAVE RESULTS UNTIL THE MORNING. PT IS EATING MORE OF HIS MEALS. OVER 1.5L OUT VIA WISE, SEE I/O. CONTINUING TO MONITOR.
--- NOTE | 2019-04-20 19:29 | NUR ---
[place] of Care: Patient alert and oriented x4, sitting upright in bed watching tv. Denies pain, discomfort, SOB, or dyspnea. VSS, O2-93-96% on 2L/NC. Patient appears to have greatly improved strength and mentation over last few days. Patient now assisting with turns/cares. PICC line to PIERRE patent and intact, infusing NS at TKO rate without difficulty. Dressings to lt heel wound C/D/I, dressing to RLE wounds C/D/I, plan to change dressings and cleanse wounds this shift. Call light in reach, makes needs known. Will continue to monitor for pain, comfort, safety.
[2019-04-21 03:21] LABS: Hematocrit 47.9 % (37.0-53.0); Hemoglobin 14.4 g/dL (13.5-17.5); Mean Corpuscular HGB 25.8 pg (26.0-34.0); Mean Corpuscular HGB Conc 30.1 g/dL (31.5-36.5); Mean Corpuscular Volume 86 fL (80-100); Mean Platelet Volume 10.4 fL (9.1-12.4); NRBC ABSOLUTE 0.07 K/mm3 (0.00-0.02); NRBC Auto 0.7 /100 WBC (0.0-0.2); Platelet Count 244 K/mm3 (150-400); RDW Coefficient Variation 19.4 % (11.7-14.2); RDW Standard Deviation 56.7 fL (35.1-46.3); Red Blood Cell Count 5.59 M/mm3 (4.30-5.90)
[2019-04-21 03:37] LABS: Anion Gap 4 mmol/L (6-16); Blood Urea Nitrogen 23 mg/dL (8-24); Bun/Creatinine Ratio 36.2 (12.0-20.0); CO2, Blood 36 mmol/L (21-32); Calcium, Blood 8.8 mg/dL (8.5-10.1); Chloride, Blood 103 mmol/L (98-108); Creatinine, Blood 0.64 mg/dL (0.60-1.20); Glomerular Filtration Rate >60 (60-); Glucose, Blood 206 mg/dL (70-99); Potassium, Blood 4.3 mmol/L (3.5-5.5); Sodium, Blood 143 mmol/L (136-145)
--- NOTE | 2019-04-21 06:21 | NUR ---
Shift Summary: Patient slept well throughout shift, Remains oriented x4, VSS, O2-92-96% on 2L/NC. Denies pain, discomfort, SOB, or dyspnea. Becomes slightly SOB with lying flat and/or exertion but quickly recovers. Strength improving, assisting with turns/cares in bed. Sims cath remains patent and intact, draining dark yellow, clear urine. Dressings changed to lt heel, and RLE, wounds cleansed. New dressings remain C/D/I. Will continue to monitor until report to day shift RN.
--- NOTE | 2019-04-21 10:17 | NUR ---
SPOKE WITH DR. OWENS AND HE GAVE OK FOR PT TO USE M SERIES BIPAP AT NIGHT SO PT CAN GO TO MEDICAL FLOOR. CONFIRMED WITH DR. OTERO THAT HE IS OK FOR PT TO GO TO MED WITH TELE WELL AND HE WAS.
--- NOTE | 2019-04-21 13:22 | NUR ---
PT TRANSPORTED TO MEDICAL FLOOR RM 325 VIA BED WITH RN. REPORT GIVEN TO TONNY HATFIELD. ALL BELONGINGS SENT WITH PT. PT TOLERATED TRANSFER WELL.
--- NOTE | 2019-04-21 18:46 | NUR ---
SHIFT SUMMARY ICU TRANSFER THIS AFTERNOON. PATIENT DENIES PAIN, NAUSEA, AND SHORTNESS OF BREATH. WISE PATENT AND DRAINING. PATIENT WILL LIKELY HAVE CONSULTS FOR ORTHO AND PODIATRY TOMORROW TO PURSUE POSSIBLE AMPUTATION OF LEFT FOOT/LOWER LEG. CALL LIGHT IN REACH, WILL CONTINUE TO MONITOR.
--- NOTE | 2019-04-22 03:24 | NUR ---
AFTER TURNING AND CHANGING PT. BUTTON TO LIFT HEAD OF BED UP WOULD NOT WORK. PT'S HEAD ELEVATED WITH PILLOWS AND MAINTANENCE CALLED.
--- NOTE | 2019-04-22 05:27 | NUR ---
SHIFT SUMMARY PT MOSTLY PLEASANT AND COOPERATIVE BUT CAN BECOME EASILY DISGRUNTLED WHEN THINGS AREN'T GOING EXACTLY HIS WAY. PT REMAINS EDEMATOUS THROUGHOUT. RASH SCATTERED THROUGHOUT BODY. PT REPORTS IMPROVEMENT TO THIS. SMALL ABRASION TO R ELBOW. WEEPING CELLULITIS WITH SEVERAL CIRCULAR WOUNDS ON R CALF. DECUB ULCER TO L HEEL. ALL WOUNDS CLEANED AND DRESSINGS CHANGED THIS AM AT APPROX 0520. PT'S HEART RATE IMPROVED THIS EVENING, MOSTLY IN THE 110'S. REMAINED IN AFLUTTER PER GUT SORTER. BREATHING BECOMES LABORED WHEN EXERTING HIMSELF. PT WAS ON AIR BED BUT AIR BED'S CONTROLS BROKE PART WAY INTO THE SHIFT WHERE HEAD OF BED COULD NOT BE RAISED. PROPPED PT UP ON PILLOWS. MAINTENANCE ATTEMPTED TO FIX BUT WAS NOT ABLE TO. SHORTLY AFTER MAINTENANCE EXITED PT'S ROOM. PT CALLED 911 TELLING THEM THAT STAFF HAD NOT BEEN IN HIS ROOM FOR 25 MINUTES AND HE COULD NOT REACH HIS CALL LIGHT. MOVED PT WITH LIFT TO NEW BED AFTER PT WAS ASKED IF THAT WAS WHAT HE WOULD PREFER. PT UNHAPPY WITH NEW BED BECAUSE IT IS MUCH SMALLER THAN THE AIR BED. PT ON 2 L O2 NC FOR MUCH OF THE NIGHT. WORE BIPAP FOR SHORT PERIOD OF TIME BUT WAS ONLY ABLE TO TOLERATE IT FOR APPROX 2 HOURS. O2 SATS REMAIN IN THE LOW TO MID 90'S. PT RESTING IN BED AT THIS TIME. VSS. WILL CONTINUE TO MONITOR.
--- NOTE | 2019-04-22 13:50 | NUR ---
SISTER, VINCENZO, CALLS AND PER PATIENT OK TO TALK TO HER.
--- NOTE | 2019-04-22 15:45 | NUR ---
LEFT MESSAGE W/DR.S. STEVENS OFFICE THAT PATIENT STABLE PER . GIVEN MEDS TO HELP LOWER HEART RATE. READY FOR SURGERY.
--- NOTE | 2019-04-22 17:44 | NUR ---
ALERT AND ORIENTED. ON OXYGEN. TELE ON AND PER TECH AT THIS TIME AFLUTTER 118-120/ MEDS HAVE BEEN ADJUSTED A FEW TIMES TODAY. PATIENT WANTS TO BE ADJUSTED IN BED SOMETIMES EVERY 15 MINUTES AND MOVED A FEW INCHES. REDNESS TO LEFT ARM LOOKS LITTLE BETTER FROM MORNING. EDEMATOUS T/O BODY. DRESSINGS TO BLE CHANGED. PICC PATENT. DOES NOT USE BARIATRIC BED CHRISTENSEN "IT HURTS HIM." WISE TO GRAVITY. STAT LOCK MOVED CLOSER TO GROIN AREA. PER SURGERY WILL NOT BE FOR A FEW DAYS. ABLE TO MAKE NEEDS KNOWN. TM
[2019-04-23 05:11] LABS: Hematocrit 48.9 % (37.0-53.0); Hemoglobin 14.5 g/dL (13.5-17.5); Mean Corpuscular HGB 25.7 pg (26.0-34.0); Mean Corpuscular HGB Conc 29.7 g/dL (31.5-36.5); Mean Corpuscular Volume 87 fL (80-100); Mean Platelet Volume 10.1 fL (9.1-12.4); NRBC ABSOLUTE 0.05 K/mm3 (0.00-0.02); NRBC Auto 0.6 /100 WBC (0.0-0.2); Platelet Count 223 K/mm3 (150-400); RDW Coefficient Variation 19.5 % (11.7-14.2); RDW Standard Deviation 57.1 fL (35.1-46.3); Red Blood Cell Count 5.65 M/mm3 (4.30-5.90); White Blood Cell Count 8.79 K/mm3 (4.00-11.30)
[2019-04-23 05:27] LABS: Anion Gap 2 mmol/L (6-16); Blood Urea Nitrogen 24 mg/dL (8-24); Bun/Creatinine Ratio 38.2 (12.0-20.0); CO2, Blood 37 mmol/L (21-32); Calcium, Blood 9.2 mg/dL (8.5-10.1); Chloride, Blood 101 mmol/L (98-108); Creatinine, Blood 0.63 mg/dL (0.60-1.20); Glomerular Filtration Rate >60 (60-); Glucose, Blood 218 mg/dL (70-99); Potassium, Blood 4.8 mmol/L (3.5-5.5); Sodium, Blood 140 mmol/L (136-145)
--- NOTE | 2019-04-23 07:09 | NUR ---
SHIFT SUMMARY PT SLEEPY LETHARGIC SLEPT ON AND OFF T/O NOC. MULPITLE LOOSE BM. TELE SHOWED A FIB C RATE OF 102-108 PER WAREHOUSE ENGINEER. CHANGED DRESSINGS TO WOUNDS ON LEGS. CALL LIGHT IN REACH.
--- NOTE | 2019-04-23 14:08 | NUR ---
ASKED PATIENT IF HE HAS DIFFICULTY URINATING? WHY HE HAS WISE? STS CAN NOT USE URINAL IN BED AND AT THIS TIME CANNOT STAND. DANGLED ON SIDE OF BED YESTERDAY. REVIEW ABOUT NOT LEAVING WISE IN FOR VERY LONG AND WHY. AGNIESZKA LANCASTER NOTIFIED.
--- NOTE | 2019-04-23 17:39 | NUR ---
ALERT. ORIENTED. COOPERATIVE. PICC PATENT. UNLABORED RESPIRATIONS. WISE PATENT. CATH CARE DONE DURING BED BATH. HEART RATE HAS BEEN 100-110 AND PER TECH A-FIB THIS SHIFT. DENIES PAIN. BED IN LOW POSITION. CALL LIGHT WITHIN REACH. WCTM.
--- NOTE | 2019-04-24 05:56 | NUR ---
SHIFT SUMMARY PT ALERT AWAKE ORIENTED X 4. RIGHT UPPER ARM PICC PATENT WITH SMALL AMOUNT BLOOD UNDER DRESSING. WISE PATENT. PATIENT REQUESTING STAFF MULTIPLE TIMES EVERY HOUR THROUGHOUT NIGHT TO BE RPOSITIONED AND "PULLED" UP. WOUND DRESSINGS ON BLE CHANGED AT 0500. PER TELEMETRY PATIENT A. FIB HR 90-100S. L UPPER ARM RASH NOTED AND EDGES MARKED.
--- NOTE | 2019-04-24 15:01 | NUR ---
SHIFT SUMMARY PT IS A&O, MORBIDLY OBESE, LYING IN BED. DRSG'S TO BL FEET C/D/I. PT CALLING SEVERAL TIMES TO BE "CLEANED UP" BEING INCONTINENT OF STOOL. PT REFUSING TO USE BED CHRISTENSEN, SOILING HIMSELF AT WILL. DR SCHREIBER HERE THIS AM TO SEE PT. VERBAL ORDER GIVEN TO NOTIFY ORTHO THAT PT IS MEDICALLY STABLE FOR SX. DR STEVENS OFFICE NOTIFIED AND AWARE. OFFICE CALLED TO VERIFY HR @ 12:39. PT CALLS FREQUENTLY, VERY NEEDY. TX TO DIFFERENT AIR BED PER PT REQUEST EARLIER. PT HAS WOUNDS AND SKIN BREAK DOWN ALL OVER. RASH TO HENRI, BLE'S SKIN IS TIGHT, RED AND DARK D/T POOR CIRCULATION. L FOOT HEEL ULCER AND L LEG AND FOOT BLISTERS. PT REPORTED NEUROPATHY IN BOTH FEET, "I DON'T FEEL A THING". WISE TO GRAVITY; PATENT. PICC DRSG CHANGED. P/T AND O/T BOTH IN TO SEE PT. PT IS DIFFICULT TO GET TO PARTICIPATE IN CARE. DOES NOT WANT TO MOVE. REMAINS IN A-FIB WITH BBB PER TELE MX. CONT BIOX ON PER CPAP PROTOCOL. CALL LT IN REACH.
--- NOTE | 2019-04-25 05:44 | NUR ---
SHIFT SUMMARY NO ACUTE CHANGES THIS SHIFT. AOX4. VSS. DENIES N/V, SOB OR ANY PAIN. STATES "I HAVE NO FEELING IN MY LEGS," & REPORTS THAT'S WHY HE'S W/O PAIN. SPO2 >90% ON 2L NC, LUNGS SOUND DIM T/O, HAS NON-PRODUCTIVE COUGH, REFUSED CONT BIOX & TOOK CPAP OFF LAST NIGHT STATING HE JUST WANTED TO WEAR NC. WISE IS PATENT & DRAINING CLEAR YELLOW URINE. TELE IN PLACE W/A. FLUTTER & HR 90 PER PCU COIL FINISHER. PT PURPOSELY INCONTINENT OF BM STATING "I DON'T LIKE THE WAY A BED CHRISTENSEN FEELS." DRESSINGS ON BLE WOUNDS ARE C/D/I. HAS BEEN NPO FOR PLANNED SURGERY TODAY OF LLE. TURNED & REPOSITIONED PRN, CALL LIGHT IN REACH & I WILL CONT TO MONITOR.
--- NOTE | 2019-04-25 17:05 | NUR ---
SHIFT SUMMARY PT PLANNED TO HAVE SURGERY TOMORROW. SURGERY HELD SO DR. MORROW COULD COLLABERATE WITH DR. CERVANTES. PT IN STABLE CONDITION WITH VSS. DENIES NEEDS AT THIS TIME. PT TO BE NPO AT MIDNIGHT. PT & FAMILY AWARE OF CHANGE IN SURGICAL PLAN. NO OTHER CHANGES IN ASSESSMENT AT THIS TIME. VSS.
--- NOTE | 2019-04-25 18:25 | NUR ---
[facility] initial visit: Per staff request, I visited Yoni this afternoon. Apparently, he has been complaining a great deal today and has been unable to let things go once they have been resovled. I suspect, his anger is a manifestation of his BKA tomorrow. Yoni was very talkative and it was difficult to steer conversation towards his current hospitalization and the events leading up to it. He tells me his friend of many years "finally led me to Thad this week." It is because of this, he says he is "OK" with losing part of his body." "What choice do I have anyway?" I gently explained that grief is a healthy, natural response to loss. Also, "even if it doesn't seem to do any good" expression of grief and be God's will. I explained that even Thad experienced grief. This seemed to make sense to Yoni. I complimented him on his relationship with good friends and offered prayer for surgery tomorrow. I suspect Yoni will continue having boughts of seemingly unresolvable anger. I beleive this is his way of expressing this loss. In that regard, it is healthy and expected. [employer] will remain available.
--- NOTE | 2019-04-26 05:24 | NUR ---
SHIFT SUMMARY NO ACUTE CHANGES THIS SHIFT. AOX4. VSS. DENIES PAIN, NAUSEA OR DYSPNEA. SPO2 >90% ON 2L NC. PT HAS BEEN NPO SINCE MIDNIGHT FOR PLANNED LEFT BKA SURGERY TODAY. DRESSINGS ON BLE ARE C/D/I. WISE IS PATENT & DRAINING CLEAR DARK YELLOW URINE. REQUIRES 2 ASSIST W/REPOSITIONING IN BED. CALL LIGHT IN REACH & I WILL CONTINUE TO MONITOR.
--- NOTE | 2019-04-26 07:55 | NUR ---
TIME OF SURGERY OR CALLED TO FIND OUT TIME OF SURGERY. OR IS PLANNING FOR 12:30. PT UPDATED.
--- NOTE | 2019-04-26 09:19 | NUR ---
REFUSAL OF CARE. PT CONTINUES TO REFUSE USING THE BEDPAN FROM . PT WILL WARN STAFF THAT "THERE WILL BE A MESS SOON" WHEN ASKED TO USE THE BEDPAN, PT STATES HE "HAS TRIED THAT & IT IS TOO UNCOMFORTABLE." PT CHOOSING TO BE INCONT. STAFF & FAMILY CONTINUE TO ENCOURAGE PT TO BE CONT & USE BEDPAN OR COMMODE. WILL CONTINUE TO MONITOR.
[2019-04-26 09:31] LABS: Alanine Aminotransfer (ALT/SGP 44 U/L (12-78); Albumin, Blood 2.5 g/dL (3.4-5.0); Albumin/Globulin Ratio 0.7 (0.8-1.8); Alk Phos 158 U/L (50-136); Anion Gap 3 mmol/L (6-16); Aspartate Aminotrans (AST/SGOT 31 U/L (12-37); Bilirubin, Direct 0.3 mg/dL (0.0-0.3); Bilirubin, Indirect 0.3 mg/dL (0.1-0.7); Bilirubin, Total 0.6 mg/dL (0.1-1.0); Blood Urea Nitrogen 18 mg/dL (8-24); Bun/Creatinine Ratio 28.8 (12.0-20.0); CO2, Blood 41 mmol/L (21-32); Chloride, Blood 98 mmol/L (98-108); Creatinine, Blood 0.62 mg/dL (0.60-1.20); Globulin, Blood 3.7 g/dL (2.2-4.0); Glomerular Filtration Rate >60 (60-); Glucose, Blood 164 mg/dL (70-99); Phosphorus, Blood 2.8 mg/dL (2.5-4.9); Potassium, Blood 4.5 mmol/L (3.5-5.5); Sodium, Blood 142 mmol/L (136-145); Total Protein, Blood 6.2 g/dL (6.4-8.2)
--- NOTE | 2019-04-26 10:57 | NUR ---
BKA HELD/ANGIO TODAY DR. TRIVEDI CONSULTED ON PT & DECIDED TO TAKE PT TO [facility] TODAY BEFORE HIS BKA. PT TO REMAIN NPO AT THIS TIME. ANGIO TO BE COMPLETED TODAY. TIME UNKNOWN AT THIS TIME. THIS RN WILL UPDATE PT INFO IS FOUND OUT. 50ML/HR NS STARTED X1 BAG TO ASSIST WITH HYDRATION DURING NPO. WILL CONTINUE TO MONITOR.
--- NOTE | 2019-04-26 18:24 | NUR ---
SHIFT SUMMARY NO CHANGES IN ASSESSMENT AT THIS TIME. VSS. PT SCHEDULED TO BE TAKEN TO SLAG WHEELER AT 1900. PT ANXIOUS ABOUT GETTING TO PROCEDURE. REPORT CALLED TO TONNY NICOLE IN PCU. BONNIE WILL BE TAKING PT AFTER ANGIO. WILL CONTINUE TO MONITOR UNTIL TURNOVER IS COMPLETE/PT TAKEN TO ANGIO.
--- NOTE | 2019-04-26 18:52 | NUR ---
PICKED UP FOR ANGIO PT PICKED UP FOR ANGIOGRAM. FAMILY FOLLOWED PT TO [facility] WAITING AREA. FAMILY HAS PT BELONGINGS.
--- NOTE | 2019-04-26 20:30 | NUR ---
ASSUMED CARE PT ARRIVED FROM [facility]. VS STABLE. PT ALERT AND ORIENTED. RIGHT RADIAL SITE WITH TR BAND IN PLACE INFLATED WITH 11CC OF AIR. SITE FREE FROM ANY BLEEDING, HEMATOMA FORMATION, OR BRUISING. FAMILY AT BEDSIDE. PT EDUCATED ON ARM RESTRICTIONS. WOUNDS TO BILATERAL LEGS COVERED WITH DRESSINGS. PICTURES OF WOUNDS IN THE CHART. 02 SATS REMAIN ABOVE 90% ON 4L NC. PT REFUSES TO HAVE CONTINUOUS PULSE OXIMETERY IN PLACE. WILL CONTINUE TO MONITOR CLOSELY.
--- NOTE | 2019-04-27 00:15 | NUR ---
RECEIVED REPORT FROM BONNIE LANCASTER AND ASSUMED CARE. PT IS RESTING WITH EYES CLOSED, APPEARS IN NO DISTRESS. TR BAND TO R WRIST, DEFLATED OF 2 CC'S AND NO SIGNS OF BLEEDING. WILL CONTINUE TO MONITOR CLOSELY AND CONTINUE DEFLATION PROCESS. WILL CONTINUE PLAN OF CARE.
[2019-04-27 04:45] LABS: Hematocrit 45.8 % (37.0-53.0); Hemoglobin 13.4 g/dL (13.5-17.5); Mean Corpuscular HGB 25.7 pg (26.0-34.0); Mean Corpuscular HGB Conc 29.3 g/dL (31.5-36.5); Mean Corpuscular Volume 88 fL (80-100); Mean Platelet Volume 10.4 fL (9.1-12.4); Platelet Count 216 K/mm3 (150-400); RDW Coefficient Variation 19.9 % (11.7-14.2); RDW Standard Deviation 60.5 fL (35.1-46.3); Red Blood Cell Count 5.22 M/mm3 (4.30-5.90); White Blood Cell Count 8.56 K/mm3 (4.00-11.30)
[2019-04-27 05:12] LABS: Albumin, Blood 2.4 g/dL (3.4-5.0); Anion Gap 0 mmol/L (6-16); Blood Urea Nitrogen 18 mg/dL (8-24); Bun/Creatinine Ratio 29.7 (12.0-20.0); CO2, Blood 43 mmol/L (21-32); Calcium, Blood 8.7 mg/dL (8.5-10.1); Chloride, Blood 98 mmol/L (98-108); Creatinine, Blood 0.61 mg/dL (0.60-1.20); Glomerular Filtration Rate >60 (60-); Glucose, Blood 227 mg/dL (70-99); Phosphorus, Blood 2.9 mg/dL (2.5-4.9); Potassium, Blood 4.2 mmol/L (3.5-5.5); Sodium, Blood 141 mmol/L (136-145)
--- NOTE | 2019-04-27 07:53 | NUR ---
TR BAND WAS SLOWLY DEFLATED WITH MINIMAL OOZING, TEGADERM PLACED AND ARMBOARD IN POSITION AT 0545. PT IS COMPLIANT WITH ACTIVITY RESTRICTIONS AND HAS BEEN ABLE TO ASSIST WITH MOBILIZATION IN BED WITH USE OF LEFT HAND ONLY. PT STATES "I NEED TO WAKE UP, I FEEL WEIRD THIS MORNING". REQUESTED URGENT CHECK OF BLOOD SUGAR (RESULT WAS 216). ASSISTED PT TO SIT HIGHER IN BED AND PT STATES "THAT'S STARTING TO HELP". NO OTHER COMPLAINTS OR CONCERNS AT THIS TIME. PLAN IS FOR CONTINUED MEDICAL MANAGEMENT PRIOR TO PLANNED LEFT BKA.
--- NOTE | 2019-04-27 09:02 | NUR ---
NURSING PCU DAYSHIFT: Assumed care of pt at approx 0700. A/O, flat affect, cooperative w/care. Denies any pain/discomfort, chronic numbness of BLE. Several wounds to BLE, photos in chart, b/l abd blisters, purple/red rash L underarm/shoulder, redness to folds. R radial site r/t angio 04/26, site appears stable w/no bleed or hematoma, wrist board in place. Pt is bedrest, requires lift for xfers. Tele in place, aflutter w/HR 100, no c/o CP/pressure, BP stable, BLE edema. L/S dim t/o, scattered coarseness which improves w/cough (though cough is PHYSICAL MEDICINE SPECIALIST per pt), O2 sat mid 90's on home dose of 3L NC, refuses CPAP and continuous biox. Abd obese, nontender, BT+, refuses bedpad and prefers incontinence of stool, FC w/stat lock present and draining well. PICC present in RUE, s/l w/abx as scheduled. No s/s of acute distress at this time. Pt denies any current needs or questions regarding plan of care. Lovenox held until plan for sx is discussed w/physicians. Call light in reach and pt is able to use w/o difficulty. Awaiting rounding from PMD and sales representative health insurance, call light in reach, cont to monitor for any changes.
--- NOTE | 2019-04-27 17:35 | NUR ---
NURSING PCU DAYSHIFT SUMMARY: No significant changes noted t/o the shift. VS remained stable, HR has improved from 100-110 to 80-90's. Plan of care discussed w/PMD and food porter, surgery will remain on hold until improved HR is maintained per food porter. Family at bedside intermittently t/o shift, update provided. Pt worked w/P.T., able to sit at edge of bed w/assist, completed leg exercises. Continued to require assistance w/ADL's and positioning. BLE wounds cleansed and dressing replaced. Pt denies any current questions/needs. Call light remains in reach. Cont to monitor until rpt is given to NOC RN.
--- NOTE | 2019-04-27 19:15 | NUR ---
OPENING NOTE RECEIVED BEDSIDE REPORT FROM JET RN AND ASSUMED PT CARE. PT IS SITTING UP IN BED, VISITING WITH SON AT THE BEDSIDE. DENIES COMPLAINTS AT THIS TIME. PT HAS BEEN STATUS CHANGED TO MED/TELE. WILL CONTINUE PLAN OF CARE. NO ACUTE CONCERNS.
--- NOTE | 2019-04-28 05:29 | NUR ---
PT HAS BEEN AWAKE MOST OF THE NIGHT, DENIES PAIN OR OTHER COMPLAINTS. ASKS REPEATEDLY "IS THERE ANY NEWS" RELATED TO PLAN FOR L BKA. PT IS ANXIOUS TO KNOW WHAT DAY AND TIME THE SURGERY WILL TAKE PLACE, REASSURED THE PT THAT MORE INFORMATION IS EXPECTED WITH PHYSICIAN ROUNDING TODAY. VSS, SEE ASSESSMENT FOR DETAILS. NS AT TKO TO PICC IN R UPPER ARM. NO ACUTE CHANGES. PT IS MED/TELE STATUS AWAITING BED AVAILABILITY FOR TRANSFER. WILL PROVIDE BEDSIDE REPORT TO ONCOMING RN.
[2019-04-28 07:04] LABS: Albumin, Blood 2.6 g/dL (3.4-5.0); Anion Gap 0 mmol/L (6-16); Blood Urea Nitrogen 20 mg/dL (8-24); Bun/Creatinine Ratio 36.9 (12.0-20.0); CO2, Blood 43 mmol/L (21-32); Calcium, Blood 8.8 mg/dL (8.5-10.1); Chloride, Blood 98 mmol/L (98-108); Creatinine, Blood 0.54 mg/dL (0.60-1.20); Glomerular Filtration Rate >60 (60-); Glucose, Blood 196 mg/dL (70-99); Phosphorus, Blood 2.5 mg/dL (2.5-4.9); Potassium, Blood 4.3 mmol/L (3.5-5.5); Sodium, Blood 141 mmol/L (136-145)
--- NOTE | 2019-04-28 09:44 | NUR ---
NURSING PCU DAYSHIFT: Assumed care of pt at approx 0700. A/O, flat affect, cooperative w/care. Denies any pain/discomfort. Several wounds t/o though most significant on BLE, dressings in place, see assessment and photos for details. General weakness noted, chronic numbness on BLE, bedrest at this time, needs encouragement to participate in ADL's. Tele in place, aflutter w/HR 100-110, no c/o CP/pressure, BP stable, trace BLE edema. L/S coarse/dim in the bases, respirations shallow, O2 sat stable on 3L NC, denies dyspnea, occ COMMISSARY WORKER cough. Abd obese, firm, NT, BT+, incontinent of stool, FC w/stat lock present and draining. PICC present in RUE, NS TKO w/abx as scheduled. Pt denies any current needs or questions regarding plan of care. Seen by electrical accessories ii assembler, new parameters placed on beta erik to hold only for SBP <80. Awaiting rounding from PMD, cont to monitor for any changes.
--- NOTE | 2019-04-28 17:16 | NUR ---
NURSING PCU DAYSHIFT SUMMARY: No significant changes noted t/o the shift. VS remained stable, cardiac and respiratory status unchanged. Seen by software configuration specialist, PMD, and ortho. Plan for L BKA tomorrow afternoon. CL after 2400 and NPO after breakfast per ortho. Pt denies any questions regarding plan of care. Denies any current needs. Call light remains in reach and pt has been able to use w/o difficulty. Cont to monitor until rpt is given to NOC RN.
[2019-04-29 04:51] LABS: Albumin, Blood 2.4 g/dL (3.4-5.0); Anion Gap -1 mmol/L (6-16); Blood Urea Nitrogen 21 mg/dL (8-24); Bun/Creatinine Ratio 38.1 (12.0-20.0); CO2, Blood 43 mmol/L (21-32); Calcium, Blood 8.5 mg/dL (8.5-10.1); Chloride, Blood 96 mmol/L (98-108); Creatinine, Blood 0.55 mg/dL (0.60-1.20); Glomerular Filtration Rate >60 (60-); Glucose, Blood 230 mg/dL (70-99); Potassium, Blood 5.5 mmol/L (3.5-5.5); Sodium, Blood 138 mmol/L (136-145)
--- NOTE | 2019-04-29 06:40 | NUR ---
SHIFT SUMMARY PT HAS REMAINED AOX4 THROUGHOUT THE NIGHT. VSS. PLEASANT AND COOPERATIVE WITH CARE. PT HAS REMAINED ON BEDREST THROUGHOUT THE NIGHT, TURNING OCCASIONALLY WITH MAXIMUM ASSISTANCE. PT REMAINS INCONTINENT OF STOOL AND CALLS FOR ASSISTANCE WITH TURNING AND CHANGING. WISE CATHETER REMAINS PATENT AND DRAINING TO GRAVITY. CARDIAC RHYTHM HAS REMAINED IN ATRIAL FLUTTER WITH PVC'S AND BBB WITH A RATE IN THE LOW 100'S THROUGHOUT THE NIGHT. PT DENIES CP AND DYSPNEA THROUGHOUT THE NIGHT, BUT DID REPORT ONE EPISODE OF "DIFFICULTY BREATHING THROUGH HIS NOSE BECAUSE OF CONGESTION"- NASAL SPRAY PROVIDED WITH SOME RELIEF. PT HAS REMAINED ON CL DIET SINCE MIDNIGHT AND WILL BE NPO AFTER CL BREAKFAST. NO OTHER CHANGES NOTED FROM INITIAL ASSESSMENT. WILL CONTINUE TO MONITOR AND REPORT TO ONCOMING SHIFT RN. BED IN LOW POSITION, CALL LIGHT IN REACH.
[2019-04-29 08:44] LABS: BASOPHILS ABSOLUTE AUTO 0.07 K/mm3 (0.00-0.23); BASOPHILS PERCENT AUTO 1 % (0-2); EOSINOPHILS ABSOLUTE AUTO 0.17 K/mm3 (0.00-0.68); EOSINOPHILS PERCENT AUTO 2 % (0-6); Hematocrit 44.6 % (37.0-53.0); Hemoglobin 12.9 g/dL (13.5-17.5); IMMATURE GRAN ABSOLUTE AUTO 0.05 K/mm3 (0.00-0.10); IMMATURE GRAN PERCENT AUTO 1 % (0-1); LYMPHOCYTES PERCENT AUTO 14 % (21-46); MONOCYTES ABSOLUTE AUTO 0.64 K/mm3 (0.16-1.47); MONOCYTES PERCENT AUTO 8 % (4-13); Mean Corpuscular HGB 25.6 pg (26.0-34.0); Mean Corpuscular HGB Conc 28.9 g/dL (31.5-36.5); Mean Corpuscular Volume 89 fL (80-100); Mean Platelet Volume 11.2 fL (9.1-12.4); NEUTROPHILS ABSOLUTE AUTO 5.63 K/mm3 (1.96-9.15); NEUTROPHILS PERCENT AUTO 73 % (41-73); Platelet Count 226 K/mm3 (150-400); RDW Coefficient Variation 20.1 % (11.7-14.2); Red Blood Cell Count 5.03 M/mm3 (4.30-5.90); White Blood Cell Count 7.66 K/mm3 (4.00-11.30)
[2019-04-29 08:58] LABS: International Normalized Ratio 1.26; Prothrombin Time Results 13.1 Sec (9.7-11.5)
--- NOTE | 2019-04-29 18:34 | NUR ---
SHIFT SUMMARY PT ALERT AND ORIENTED. VS STABLE. HR HAS REMAINED AFLUTTER WITH AN AVERAGE RATE OF 104 PER TELEMETRY. O2 SATS REMAIN ABOVE 90% ON 3L NC. PT COMPLAINED OF PAIN IN HIS BACK THAT WAS RELIEVED WITH REPOSITIONING. ATTEMPTED TO REPOSITION Q2H, BUT PT REFUSED. PT EDUCATED ABOUT PRESSURE ULCER PREVENTION. COCCYX IS RED, BUT BLANCHABLE. PLAN FOR PT TO HAVE LEFT BKA TOMORROW AT [address] GROVE. ANESTHESIOLOGY IN TO REVIEW PT'S CASE THIS SHIFT. WISE PATENT AND DRAINING CLEAR YELLOW. WOUNDS TO BILATERAL LEGS HAVE DRESSINGS IN PLACE. PT REFUSES TO ELEVATE LEGS ON PILLOWS. WILL CONTINUE TO MONITOR AND REPORT TO ONCOMING RN. CALL LIGHT IN REACH.
[2019-04-30 05:13] LABS: Albumin, Blood 2.5 g/dL (3.4-5.0); Anion Gap 1 mmol/L (6-16); Blood Urea Nitrogen 19 mg/dL (8-24); Bun/Creatinine Ratio 34.5 (12.0-20.0); CO2, Blood 42 mmol/L (21-32); Calcium, Blood 8.7 mg/dL (8.5-10.1); Chloride, Blood 96 mmol/L (98-108); Creatinine, Blood 0.55 mg/dL (0.60-1.20); Glomerular Filtration Rate >60 (60-); Glucose, Blood 230 mg/dL (70-99); Phosphorus, Blood 2.6 mg/dL (2.5-4.9); Potassium, Blood 4.8 mmol/L (3.5-5.5); Sodium, Blood 139 mmol/L (136-145)
--- NOTE | 2019-04-30 06:23 | NUR ---
SHIFT SUMMARY PT HAS REMAINED AOX4 THROUGHOUT SHIFT. VSS. PLEASANT AND MOSTLY COOPERATIVE WITH CARE. O2 SATS HAVE REMAINED >90% ON 3L VIA NASAL CANNULA, WHICH IS BASELINE O2 USE. HEART RHYTHM HAS REMAINED IN ATRIAL FLUTTER W/BBB AND PVC'S; RATE HAS REMAINED 98-104. PT CONTINUES TO BE INCONTINENT OF STOOL, BUT CALLS APPROPRIATELY FOR CHANGING. WISE PATENT AND DRAINING TO GRAVITY. WOUND DRESSING CHANGE PROVIDED TO R LEG, BUT PT REFUSED L LEG DRESSING CHANGE AT THIS TIME DUE TO UPCOMING PROCEDURE. PT REFUSING TO TURN Q2, BUT IS MUCH MORE AGREEABLE TO TURNING OCCASIONALLY AFTER EDUCATION PROVIDED THROUGHOUT THE DAY AND NIGHT. PT HAS REMAINED NPO SINCE MIDNIGHT WITH EXCEPTION OF SIPS WITH MEDS AND VERY FEW ICE CHIPS. NO OTHER CHANGES NOTED FROM INITIAL ASSESSMENT. WILL CONTINUE TO MONITOR AND REPORT TO ONCOMING SHIFT RN. BED IN LOW POSITION, CALL LIGHT IN REACH.
--- NOTE | 2019-04-30 11:25 | NUR ---
Call from Olivia Heredia that pt will be picked up in about 15 minutes for surgery. Family members are at the bedside. CBG checked at this time and noted on the pre-op check list form, on front of chart. Verified blood consent and surgical consent are signed and on the chart. PICC line RUE flushed at this time, pt disconnected from IV.
--- NOTE | 2019-04-30 11:45 | NUR ---
INTO SDS VIA BED. PT SOMULENT. SLEEPS MAINLY WHEN NOT DISTURBED. APNEIC PERIODS NOTED. PT AWAKENS TO VERBAL-SLOW TO RESPOND, BUT SEEMS TO ANSWER QUESTIONS APPROPRIATELY. LUNGS DIMINISHED VS. DISTANT THROUGH OUT. SATS>90% ON 3 LITERS NASAL CANULA. NPO STATUS CONFIRMED. CBG-215 @ 1120. DRESSINGS IN PLACE TO BILATERAL LOWER EXTREMITIES. SERO SANGINOUS DRAINAGE NOTED TO DRESSING AND BED SHEETS.
--- NOTE | 2019-04-30 14:30 | NUR ---
PT TAKEN BACK TO PCU [address] GROVE-THE PRECEDING OR CASE WILL TAKE LONGER THAN ANTIPATED. PT AND FAMILY UPDATED. BOTH PT AND HIS SISTER VERBALIZED CONCERN THAT THIS IS THE "FIFTH TIME THAT THE SURGERY HAS BEEN CANCELED." PT SISTER STATES THAT SHE HAS BEEN "KEEPING TRACK OF EVERYTHING THAT HAS HAPPENED SO FAR." SHE CONTINUES TO STATE THAT SHE UNDERSTANDS THAT THE SURGERY WAS POSTPONED DUE TO THE NEED FOR A CARDIOLOGY CONSULT. HOWEVER, PT SISTER STATES THAT THE BIKE MECHANIC AND THE SURGEON DID NOT COMMUNICATE EFFECTIVELY AND A RESULT, THE PROCEDURE HAS BEEN CANCELED "FOUR TIMES ALREADY." BOTH PT AND HIS SISTER VERBALIZED THAT THEY FELT THAT PT WAS BEING DELAYED DUE TO THE FACT THAT HE HAS OHP. PT AND SISTER BOTH MENTIONED CONCERN THAT "THE INFECTION WAS GOING TO GET INTO THE BONE MARROW AND THAT HE WILL JUST LIKE OUR DAD DID." THIS RN ATTEMPTED TO CONSOLE PT AND FAMILY. OR CLINICAL COODINATOR AND DIRECTOR MADE AWARE OF SITUATION.
--- NOTE | 2019-04-30 14:39 | NUR ---
The pt returned to the room from Day surgery; unable to do surgery yet to do delay in the OR suite, per report from Gilda Heredia. the pt's family is talking with Marry crawford who called the Pt Advocate, because they are upset at another delay in surgical intervention, per their statement, "Because the pt has OHP insurance."
--- NOTE | 2019-04-30 16:02 | NUR ---
Idaliatj Arguello was here to see the pt and his at the bedside. The pt expressed appreciation for staff of ICU and PCU; says that they have been "great", but that the 3rd floor staff were not good at all. STates that he was left on 3rd floor for 2 hours without a call light within reach, after an attempt had been made to repair a bariatric air bed which had broken while he was in it. States that he called the non-emergent dispatch number in order to have a staff member come to help him in his room. At this time, Bharti Arguello is expecting that the pt will be taken for surgery within about an hour and half.
--- NOTE | 2019-04-30 18:24 | NUR ---
Surgeon did come and speak with the family this evening at 1730; Apparently surgery has been delayed until tomorrow possibly at 12:30. The pt was transferred to surgical floor room 226 after telephone report was called to TONNY Mendoza. The pt was transferred with a lift to a bariatric bed in room 226. As surgery was anticipated for today, and the pt was in PACU for 2-3 hours waiting surgery, dressings on the BLE were not done today. This was communicated to the Kelly to pass along to noc shift for dressing changes to happen this evening. The legs were elevated on a pillow and chux pad, with care to prevent pressure on the feet from any surrounding objects. The pt had no complaints of pain this afternoon/evening. His is at the bedside with him.
--- NOTE | 2019-04-30 18:45 | NUR ---
SHIFT SUMMARY PT TRANSFERRED TO ROOM ABOUT 1800, DENIES PAIN AT THIS TIME, CARROLL PO, DENIES N&V. EATING DINNER. NPO AT 0001 FOR SCHEDULED SG TOMORROW. 3LNC BASELINE; CALLED RT TO MEET WITH PT TO SET UP CPAP. FAMILY AT BEDSIDE. WCTM & TX PER EMAR UNTIL REPORT GIVEN TO ONCOMING GEOVANY RN.
--- NOTE | 2019-05-01 05:16 | NUR ---
SHIFT SUMMARY: PT A&O X4. VS WNL. O2 SATS STABLE ON 2L PER NC WHICH IS BASELINE FOR PT. OCC NONPRODUCTIVE COUGH T/O SHIFT. A/FIB PER OBSTETRICS GYN PHYSICIAN. DRESSING TO LEFT ANKLE CHANGED WITH GAUZE, ABD PAD AND ALYSE WRAP. DRESSING TO RLE CDI WITH GAUZE AND COBAN. SKIN TO BLE DRY, FRAGILE AND PEELING WITH POOR CIRCULATION. PT REPORTS BILAT NUMBNESS. MEPILEX DRESSING TO RIGHT HIP AND RIGHT ELBOW. SKIN FRAGILE T/O. ECCHYMOSIS NOTED TO RIGHT UPPER BACK. PT C/O THAT IT IS SORE. PT INCONTINENT OF BOWEL T/O SHIFT. 2 MAX ASSIST + OVERHEAD LIFT USED FOR ALL TURNS. BEDREST AT THIS TIME. WISE PATENT AND DRAINING YELLOW URINE. PT HAS BEEN NPO SINCE MIDNIGHT FOR PLANNED AMPUTATION OF LLE THIS AFTERNOON.
--- NOTE | 2019-05-01 07:20 | NUR ---
PT SLEEPING WAKES BREIFLY THEN FALLS BACK TO SLEEP
--- NOTE | 2019-05-01 08:58 | NUR ---
PO B/P MEDS GIVEN WITH SIP H2O IV ABX GIVEN PT WATCHING TV PT STATED HE SLEPT WELL LAST NIGHT
--- NOTE | 2019-05-01 12:30 | NUR ---
pt transported via bed to day surg
--- NOTE | 2019-05-01 12:55 | NUR ---
PT TO DAY SURGERY, LAB HERE TO OBTAIN TYPE AND SCREEN ORDER. DUONEB GIVEN PER ORDER.
--- NOTE | 2019-05-01 14:11 | NUR ---
05/01/19 1411 Lio Malloy PATIENT ARRIVED TO OR WITH PICC IN RIGHT ARM AND WISE CATH DRAINING NEVILLE COLORED URINE
[2019-05-01 17:12] LABS: PO2 Arterial 216 mmHg (80-100); pH Blood Arterial 7.43 (7.35-7.45)
[2019-05-01 17:24] LABS: Anion Gap 4 mmol/L (6-16); Blood Urea Nitrogen 15 mg/dL (8-24); Bun/Creatinine Ratio 24.6 (12.0-20.0); CO2, Blood 35 mmol/L (21-32); Calcium, Blood 7.6 mg/dL (8.5-10.1); Chloride, Blood 101 mmol/L (98-108); Creatinine, Blood 0.61 mg/dL (0.60-1.20); Glomerular Filtration Rate >60 (60-); Glucose, Blood 193 mg/dL (70-99); Magnesium, Blood 1.6 mg/dL (1.6-2.4); Phosphorus, Blood 2.7 mg/dL (2.5-4.9); Potassium, Blood 4.4 mmol/L (3.5-5.5); Sodium, Blood 140 mmol/L (136-145)
[2019-05-01 17:53] LABS: BASOPHILS ABSOLUTE AUTO 0.02 K/mm3 (0.00-0.23); BASOPHILS PERCENT AUTO 0 % (0-2); EOSINOPHILS ABSOLUTE AUTO 0.02 K/mm3 (0.00-0.68); EOSINOPHILS PERCENT AUTO 0 % (0-6); Hematocrit 40.3 % (37.0-53.0); Hemoglobin 12.1 g/dL (13.5-17.5); IMMATURE GRAN ABSOLUTE AUTO 0.02 K/mm3 (0.00-0.10); IMMATURE GRAN PERCENT AUTO 0 % (0-1); LYMPHOCYTES ABSOLUTE AUTO 0.41 K/mm3 (0.84-5.20); LYMPHOCYTES PERCENT AUTO 6 % (21-46); MONOCYTES ABSOLUTE AUTO 0.17 K/mm3 (0.16-1.47); MONOCYTES PERCENT AUTO 3 % (4-13); Mean Corpuscular HGB 26.1 pg (26.0-34.0); Mean Corpuscular Volume 87 fL (80-100); Mean Platelet Volume 11.2 fL (9.1-12.4); NEUTROPHILS ABSOLUTE AUTO 5.73 K/mm3 (1.96-9.15); NEUTROPHILS PERCENT AUTO 90 % (41-73); Platelet Count 224 K/mm3 (150-400); RDW Coefficient Variation 19.8 % (11.7-14.2); RDW Standard Deviation 61.2 fL (35.1-46.3); Red Blood Cell Count 4.64 M/mm3 (4.30-5.90); White Blood Cell Count 6.37 K/mm3 (4.00-11.30)
[2019-05-01 18:20] LABS: International Normalized Ratio 1.29; Prothrombin Time Results 13.4 Sec (9.7-11.5)
--- NOTE | 2019-05-01 19:23 | NUR ---
ASSUMED CARE RECEIVED REPORT FROM ALONSO. PT ON VENT AC20/500/10/70%. ETT 7.5, 23 @ TEETH. CURRENT GTTPS: PROPOFOL 35MCG/KG/MIN, NS 100ML/HR, NS TKO W/ FLAGYL RUNNING PB. PT IS S/P LEFT BKA, DRESSING IS CDI. WISE BAG HANGING TO GRAVITY. NO FAMILY AT BEDSIDE. HEMODYNAMICALLY STABLE (SEE VS).
--- NOTE | 2019-05-01 19:50 | NUR ---
SHIFT SUMMARY: PT ARRIVED FROM OR AT APPROX 1600, RYANN IN BARIATRIC BED. THREE ANESTHESIOLOGISTS ARIVE ALONG WITH APPROX 4 RN/STAFF MEMBERS, RT AT BEDSIDE ALONG WITH SEVERAL ICU NURSES. DR CROFT NOTED TO BE AT THE HEAD OF THE BED ATTEMPTING TO GET THE PT TO RESPOND TO VERBAL STEMULI. PT IS NOTED TO BE THRASHING AROUND IN THE BED, BUT BP IS NOTED TO BE VERY LOW AND O2 SATS ARE LOW WELL. PROPOFOL IS PULLED ON AN OVERRIDE BY DARYA MCCORMACK RN AND STARTED. SEE RT DOCUMATION FOR VENT SETTINGS. VENT TUBE A 7.5 AND IS NOTED TO BE 23 @ THE LIPS. FAMILY UPDATED BY DR CROFT AND DR GROVE. OG TUBE PLACED, VERAFIED BY AUSCULTATION OF THE STOMACH AND BY X-RAY. X-RAY VERAFIED BY DR OWENS AT BEDSIDE. ATTEMPTED TO DRAW LABS FROM PICC LINE, BUT DOES NOT DRAW BLOOD, FLUSHES WITH NO PROBLEM, X-RAY VERAFIED BY DR OWENS FOR LINE PLACEMENT, APPEARS TO BE IN CORRECT PLACE AND GOOD TO USE PER DR ORDERS. DRESSING CHANGED AT THIS TIME. LEVOPHED WAS STARTED AND RAN FOR APPROX 30MIN BEFORE SBP WAS NOTED IN THE 140'S. 500ML BOLUS WAS GIVEN OF LR PER DR ORDERS. FAMILY AT BEDSIDE AND GIVEN UPDATE FROM THIS RN. FAMILY GIVEN ICU PHONE NUMBER. REPORT GIVEN TO ONCOMING RN. PT STABLE AT THIS TIME.
--- NOTE | 2019-05-02 00:27 | NUR ---
UPDATE PT DE-SAT'S DURING BATH/TURNS AND NEEDS BUMPED UP TO 100% FIO2. SLOWLY RECOVERS THEN CAN BE FINE AT 70% FIO2. NO ACUTE CHANGES OTHERWISE. PT REMAINS SAT'ING 90+.
[2019-05-02 03:19] LABS: BASOPHILS PERCENT AUTO 0 % (0-2); EOSINOPHILS ABSOLUTE AUTO 0.02 K/mm3 (0.00-0.68); EOSINOPHILS PERCENT AUTO 0 % (0-6); Hematocrit 39.9 % (37.0-53.0); Hemoglobin 12.2 g/dL (13.5-17.5); IMMATURE GRAN ABSOLUTE AUTO 0.02 K/mm3 (0.00-0.10); IMMATURE GRAN PERCENT AUTO 0 % (0-1); LYMPHOCYTES ABSOLUTE AUTO 0.61 K/mm3 (0.84-5.20); LYMPHOCYTES PERCENT AUTO 9 % (21-46); MONOCYTES ABSOLUTE AUTO 0.28 K/mm3 (0.16-1.47); MONOCYTES PERCENT AUTO 4 % (4-13); Mean Corpuscular HGB 25.7 pg (26.0-34.0); Mean Corpuscular HGB Conc 30.6 g/dL (31.5-36.5); NEUTROPHILS ABSOLUTE AUTO 5.92 K/mm3 (1.96-9.15); NEUTROPHILS PERCENT AUTO 86 % (41-73); Platelet Count 214 K/mm3 (150-400); RDW Coefficient Variation 19.9 % (11.7-14.2); RDW Standard Deviation 59.7 fL (35.1-46.3); Red Blood Cell Count 4.74 M/mm3 (4.30-5.90); White Blood Cell Count 6.85 K/mm3 (4.00-11.30)
[2019-05-02 03:23] LABS: Mean Corpuscular Volume 84 fL (80-100)
[2019-05-02 03:37] LABS: Alanine Aminotransfer (ALT/SGP 24 U/L (12-78); Albumin, Blood 2.2 g/dL (3.4-5.0); Albumin/Globulin Ratio 0.7 (0.8-1.8); Alk Phos 139 U/L (50-136); Anion Gap 4 mmol/L (6-16); Aspartate Aminotrans (AST/SGOT 23 U/L (12-37); Bilirubin, Total 0.7 mg/dL (0.1-1.0); Blood Urea Nitrogen 17 mg/dL (8-24); Bun/Creatinine Ratio 28.8 (12.0-20.0); CO2, Blood 36 mmol/L (21-32); Calcium, Blood 8.4 mg/dL (8.5-10.1); Chloride, Blood 98 mmol/L (98-108); Creatinine, Blood 0.59 mg/dL (0.60-1.20); Globulin, Blood 3.3 g/dL (2.2-4.0); Glomerular Filtration Rate >60 (60-); Glucose, Blood 219 mg/dL (70-99); Magnesium, Blood 1.6 mg/dL (1.6-2.4); Phosphorus, Blood 1.8 mg/dL (2.5-4.9); Potassium, Blood 4.5 mmol/L (3.5-5.5); Sodium, Blood 138 mmol/L (136-145); Total Protein, Blood 5.5 g/dL (6.4-8.2)
[2019-05-02 03:39] LABS: International Normalized Ratio 1.33; Prothrombin Time Results 13.7 Sec (9.7-11.5)
--- NOTE | 2019-05-02 05:02 | NUR ---
UPDATE NO ACUTE CHANGES. TRIED TO GET A DAILY WEIGHT, BUT BED MUST HAVE NOT BEEN ZERO'D PROPERLY. WEIGHT SHOWS 30.0KG, WHICH IS CLEARLY NOT CORRECT.
[2019-05-02 05:32] LABS: PCO2 Arterial 43.2 mmHg (35-45); PO2 Arterial 54.4 mmHg (80-100); pH Blood Arterial 7.56 (7.35-7.45)
--- NOTE | 2019-05-02 06:01 | NUR ---
SEDATION VACATION PROPOFOL WAS PUT ON STANDBY FOR SEDATION VACATION. PT MOVING NONPURPOSEFULLY, HE DID NOT OPEN EYES TO VOICE, RESPONDED TO PAIN BY WITHDRAWING HAND (SQUEEZED FINGERNAIL). DID NOT SQUEEZE MY HANDS ON COMMAND. DID NOT FOLLOW ANY DIRECTION. PROPOFOL TURNED BACK ON TO 35MCG/KG/MIN.
--- NOTE | 2019-05-02 06:10 | NUR ---
SHIFT SUMMARY PLACED CALL TO [facility] REGARDING THIS MORNING'S ABG, AND PHOSPHORUS LEVELS (SEE LABS). CHANGE HAS BEEN MADE TO VENT SETTINGS; WHICH ARE NOW AC16/500/10/70%, TITRATING FIO2 FOR SPO2>90. CURRENT GTTPS: PROPOFOL @ 35MCG/KG/MIN, AND LR @ 100ML/HR. GOING THROUGH PICC LINE; FLUSHES WELL, BUT DOES NOT DRAW BLOOD, DRESSING AND CLAVES CHANGED OVER NIGHT. LEFT BKA SITE/DRESSING WAS CDI. DRESSING ON RIGHT AMBROSIO WAS CDI. NO SIGNIFICANT EVENTS OVERNIGHT. PT OFTEN REQUIRES TEMPORARY FIO2^100% FOR TURNS, BECAUSE HE WILL DE-SAT TO MID/HIGH 80'S, AND TAKE A BIT TO RECOVER. SEE PREVIOUS NOTE FOR NEURO STATUS (SEDATION VACATION). CNVI = 0, 1 WHEN PROPOFOL GETS PUT ON STANDBY - RESTLESSNESS. 1MG OF DILAUDID PT NOT PRODUCING MUCH SECRETIONS. PT REMAINS IN AFIB (POSSIBLY FLUTTER) RATE 100-128. LEVO REMAINS ON STANDBY. RESIDUALS WERE MINIMAL ALL NIGHT, AT ~0400 THEY INCREASED TO 100ML, DARK BROWN. PT HAD 1800ML OF UOP OF DARK ORANGE/NEVILLE URINE. NO FAMILY AT BEDSIDE. BED LOW AND LOCKED.
--- NOTE | 2019-05-02 13:47 | NUR ---
JANI & DR PRETTY: NOTIFIED DR PRETTY OF PREVIOUS REACTION TO MEDICATIONS NOTED IN A SKIN RASH AND PT BEING TAKEN OFF OF ZOSYN, LASIX AND VANCO. DR PRETTY VERBALY DC'D ALL ANTIBIOTICS AT THIS TIME, WILL REASSESS IN THE MORNING AND RESTART NEEDED.
--- NOTE | 2019-05-02 17:46 | NUR ---
DR CODY: CAME INTO CHANGE DRESSING. GAVE ORDERS TO CHANGE DAILY. CLEAN WITH HYDROGEN PEROXCIDE BLOT DRY PLACE ABD BANDAGES OVER AND THEN PLACE DRESSING SOCK OVER. STATED HE WOULD PUT ORDERS IN.
--- NOTE | 2019-05-02 19:32 | NUR ---
ASSUMED CARE RECEIVED REPORT FROM ALONSO. PT REMAINS INTUBATED WITH 7.5 ETT 23 @ TEETH. VENT SETTINGS ARE AC14/500/10/65%. CURRENT GTTPS: PRECEDEX @ 0.4MCG/KG/HR AND LR @ 50ML/HR. TUBE FEEDING IS PIVOT 1.5 INFUSING AT 50ML/HR, I CHANGED IT TO 20ML/HR, UNTIL I CAN CHECK RESIDUALS. PICC LINE SITE WNL, LEFT BKA DRESSING CDI, DRESSING ON RIGHT LEG CDI. WISE BAG PATENT AND HANGING TO GRAVITY. VITALS STABLE. BARIATRIC BED LOW AND LOCKED.
--- NOTE | 2019-05-02 19:40 | NUR ---
SHIFT SUMMARY: NO ACUTE DISTRESS NOTED T/O THE SHIFT. PROPOFOL WAS TURNED OFF AND PRECEDEX WAS STARTED. PT HAS TOLLERATED WELL T/O THE SHIFT, WAKES EASILY TO ORAL CARE AND OTHER TYPE OF STIMULATION. PT IS ABLE TO ANSWER YES OR NO QUESTIONS AND IS ABLE TO FOLLOW COMMANDS. FAMILY REMAINED IN THE ROOM MOST OF THE DAY TALKING WITH STAFF AND RECEIVING EDUCATION FROM ROSALIND AND THIS RN. DR CODY CAME IN THIS MORNING TO CHANGE L BKA DRESSING. THIS RN CHANGED R LOWER LEG DRESSING THIS SHIFT SCANT AMOUNT OF DRAINAGE NOTED. BARIER CREAM APPLED TO R FOOT. TUBE FEEDING STARTED THIS EVENING AT GOAL RATE, NOTIFIED NOC RN TO MONITOR CLOSELY. SMALL AMOUNT OF ELENO RED NOTED IN THE INLINE SUCTION WITH SUCTION DR PRETTY AWARE. VSS T/O THE SHFIT. REPORT GIVEN TO ALEX DE RN.
--- NOTE | 2019-05-02 21:54 | NUR ---
UPDATE RESIUDALS WERE 75ML FROM OG TUBE. TUBE FEEDING INCREASED TO GOAL 50ML/HR.
--- NOTE | 2019-05-03 03:38 | NUR ---
UPDATE PT IS ABLE TO FOLLOW COMMANDS ON LIGHT SEDATION (PRECEDEX 0.4MCG/KG/HR) WHEN STIMULATED TO DO SO. CAN NOD AND SHAKE HEAD TO ANSWER QUESTIONS. STATES HE IS NOT IN PAIN. HOWEVER, IF GIVEN THE OPPORTUNITY WILL ATTEMPT TO SELF-EXTUBATE.
[2019-05-03 03:54] LABS: BASOPHILS PERCENT AUTO 0 % (0-2); EOSINOPHILS PERCENT AUTO 0 % (0-6); Hematocrit 41.6 % (37.0-53.0); Hemoglobin 12.9 g/dL (13.5-17.5); IMMATURE GRAN ABSOLUTE AUTO 0.03 K/mm3 (0.00-0.10); IMMATURE GRAN PERCENT AUTO 0 % (0-1); LYMPHOCYTES PERCENT AUTO 17 % (21-46); MONOCYTES ABSOLUTE AUTO 0.73 K/mm3 (0.16-1.47); MONOCYTES PERCENT AUTO 11 % (4-13); Mean Corpuscular HGB 25.2 pg (26.0-34.0); Mean Platelet Volume 11.4 fL (9.1-12.4); NEUTROPHILS ABSOLUTE AUTO 4.82 K/mm3 (1.96-9.15); NEUTROPHILS PERCENT AUTO 72 % (41-73); Platelet Count 221 K/mm3 (150-400); RDW Coefficient Variation 20.9 % (11.7-14.2); RDW Standard Deviation 57.6 fL (35.1-46.3); Red Blood Cell Count 5.11 M/mm3 (4.30-5.90); White Blood Cell Count 6.68 K/mm3 (4.00-11.30)
[2019-05-03 03:55] LABS: Mean Corpuscular Volume 81 fL (80-100)
[2019-05-03 04:08] LABS: Albumin, Blood 2.5 g/dL (3.4-5.0); Anion Gap 5 mmol/L (6-16); Blood Urea Nitrogen 22 mg/dL (8-24); Bun/Creatinine Ratio 32.4 (12.0-20.0); CO2, Blood 37 mmol/L (21-32); Calcium, Blood 8.5 mg/dL (8.5-10.1); Chloride, Blood 97 mmol/L (98-108); Creatinine, Blood 0.68 mg/dL (0.60-1.20); Glomerular Filtration Rate >60 (60-); Glucose, Blood 248 mg/dL (70-99); Magnesium, Blood 1.7 mg/dL (1.6-2.4); Phosphorus, Blood 3.2 mg/dL (2.5-4.9); Sodium, Blood 139 mmol/L (136-145)
[2019-05-03 05:52] LABS: PCO2 Arterial 44.3 mmHg (35-45); PO2 Arterial 62.2 mmHg (80-100); pH Blood Arterial 7.56 (7.35-7.45)
--- NOTE | 2019-05-03 06:47 | NUR ---
SHIFT SUMMARY PT REMAINS ON VENT AC14/500/10/50%, ETT 7.5, 23 @ TEETH. PT CAN FOLLOW COMMANDS, AND NOD/SHAKE HIS HEAD TO QUESTIONS. BUT WILL PULL ETT TUBE IF NOT RESTRAINED. CURRENT GTTP: PRECEDEX 0.4MCG/KG/HR, AND LR 50ML/HR. LEFT BKA, AND RIGHT AMBROSIO DRESSINGS ARE CDI. NO BM OVERNIGHT, WITH LOTS OF URINE OUTPUT (SEE I/O'S). HARDLY ANY SECRETIONS SUCTIONED FROM INLINE, OR ORAL CAVITY. PT IS FAIRLY EDEMATOUS THROUGHOUT. PT HAD A BATH LAST NIGHT. PT IS IN AFIB, WITH A BBB. RATE CONTROLLED IN THE LOW 100'S. BED LOW AND LOCKED. NO FAMILY AT BEDSIDE.
--- NOTE | 2019-05-03 07:15 | NUR ---
Dr. Loera (cardiology) here; no new orders.
--- NOTE | 2019-05-03 07:30 | NUR ---
ASSUMED CARE OF PATIENT; SEE ASSESSMENT CHARTING FOR DETAILS. REMAINS ON VENT. WITH SETTINGS: A/C 14, TV 500, PEEP 10 AND FIO2 50%. LUNGS CLEAR BUT DECREASED T/O; MOUTH VERY DRY; FREQUENT ORAL CARE DONE. PATIENT ROUSES TO VERBAL STIMULI AND WILL BRIEFLY OPEN EYES; SEDATED WITH PRECEDEX AT 0.4MCG/KG/HR. RIKERS' SCALE ABOUT 3. WISE DRAINING LARGE AMOUNTS OF LT. YELLOW URINE; RECEIVED DOSE OF LASIX 40 IV AT 0600. OGT INFUSING WITH PIVOT 1.5 AT 50/HR; RESIDUAL 10ML/. EXTREMITIES ELEVATED ON PILLOWS. L- BKA SUPPORTED WITH PILLOW AND STUMP SOCK IN PLACE; (D/I).
--- NOTE | 2019-05-03 09:00 | NUR ---
DR. PRETTY HERE; SEE ORDERS.
--- NOTE | 2019-05-03 18:00 | NUR ---
SUMMARY: NO ACUTE CHANGES. FAMILY AT BEDSIDE; ASK NURSES AND OTHER STAFF LOTS OF QUESTIONS RE: EQUIPMENT; POC, ETC. FENTANYL 25MCG IVT FOR INCREASED RESTLESSNESS; CALMED QUICKLY. REMAINS ON PRECEDEX DRIP AT 0.4MCG/KG/MIN. GOOD URINE OUTPUT.
--- NOTE | 2019-05-03 19:15 | NUR ---
ASSUMED CARE PT SUPINE IN BED WITH FAMILY IN ROOM. INTUBATED W/ CURRENT VENT SETTINGS OF AC14/500/10/50%. PT SEDATED VIA PRECEDEX AT 0.4MCG/KG/HR. PT OPENS EYES TO VOICE, FOLLOWS SIMPLE COMMANDS AND RESPONDS TO YES/NO QUESTIONS WITH HEAD NODS. TF AT GOAL OF 45ML/HR WITH 115ML H20 Q 4HRS-NO RESIDUAL AT ASSESSMENT. FAMILY CONCERNED ABOUT PAIN CONTROL. REASSURED THAT PT WOULD BE MEDICATED BASDED ON HIS RESPONSE AND NONVERBAL INDICATORS. LEFT BKA DRESSED WITH ABD PADS W/ MINIMAL RESIDUAL AND RLE HAS UNNA BOOT IN PLACE. PLAN TO REVIEW WHEN DRESSED AND REDRESS IF NEEDED.
--- NOTE | 2019-05-04 05:00 | NUR ---
WEIGHT UNABLE TO OBTAIN WEIGHT, BED ONLY GIVE READING OF 27KG.
[2019-05-04 05:04] LABS: BASOPHILS ABSOLUTE AUTO 0.01 K/mm3 (0.00-0.23); BASOPHILS PERCENT AUTO 0 % (0-2); EOSINOPHILS ABSOLUTE AUTO 0.03 K/mm3 (0.00-0.68); EOSINOPHILS PERCENT AUTO 1 % (0-6); Hematocrit 41.1 % (37.0-53.0); Hemoglobin 12.7 g/dL (13.5-17.5); IMMATURE GRAN ABSOLUTE AUTO 0.02 K/mm3 (0.00-0.10); IMMATURE GRAN PERCENT AUTO 0 % (0-1); LYMPHOCYTES ABSOLUTE AUTO 1.51 K/mm3 (0.84-5.20); LYMPHOCYTES PERCENT AUTO 23 % (21-46); MONOCYTES ABSOLUTE AUTO 0.67 K/mm3 (0.16-1.47); MONOCYTES PERCENT AUTO 10 % (4-13); Mean Corpuscular HGB 25.8 pg (26.0-34.0); Mean Corpuscular HGB Conc 30.9 g/dL (31.5-36.5); Mean Corpuscular Volume 83 fL (80-100); Mean Platelet Volume 11.6 fL (9.1-12.4); NEUTROPHILS ABSOLUTE AUTO 4.42 K/mm3 (1.96-9.15); NEUTROPHILS PERCENT AUTO 66 % (41-73); Platelet Count 204 K/mm3 (150-400); RDW Coefficient Variation 20.8 % (11.7-14.2); RDW Standard Deviation 59.7 fL (35.1-46.3); Red Blood Cell Count 4.93 M/mm3 (4.30-5.90); White Blood Cell Count 6.66 K/mm3 (4.00-11.30)
[2019-05-04 05:25] LABS: Albumin, Blood 2.4 g/dL (3.4-5.0); Anion Gap 5 mmol/L (6-16); Blood Urea Nitrogen 28 mg/dL (8-24); Bun/Creatinine Ratio 43.1 (12.0-20.0); CO2, Blood 38 mmol/L (21-32); Calcium, Blood 8.4 mg/dL (8.5-10.1); Chloride, Blood 96 mmol/L (98-108); Creatinine, Blood 0.65 mg/dL (0.60-1.20); Glomerular Filtration Rate >60 (60-); Glucose, Blood 294 mg/dL (70-99); Magnesium, Blood 1.9 mg/dL (1.6-2.4); Phosphorus, Blood 2.9 mg/dL (2.5-4.9); Potassium, Blood 3.9 mmol/L (3.5-5.5); Sodium, Blood 139 mmol/L (136-145)
--- NOTE | 2019-05-04 07:30 | NUR ---
ASSUMED CARE OF PATIENT; SEE ASSESSMENT CHARTING FOR DETAILS. PATIENT INTUBATED AND ON VENTILATOR: SETTINGS= A/C 14, TV 500, PEEP 10 AND FIO2 50%. SEDATED WITH 0.4MCG/KG/HR OF PRECEDEX; RIKERS' SCALE 3-4. ABLE TO FOLLOW COMMANDS WHEN AROUSED BUT DRIFTS OFF TO SLEEP WHEN NOT DISTRUBED. LR INFUSING AT 50ML/HR; ALL IV SOLUTIONS INFUSING VIA PICC LINE. L HAND PERIPHERAL IV SITE FLUSHES EASILY AND SITE CLEAR; KEPT SALINE LOCKED, FOR NOW. WISE CATH. TO GRAVITY AND DRAINING LG. AMOUNTS OF LT YELLOW URINE; REMAINS ON BID DIURETIC THERAPY. VSS AND REMAINS AFEBRILE.
--- NOTE | 2019-05-04 09:20 | NUR ---
PEEP DOWN TO 8; DR. PRETTY HERE.
--- NOTE | 2019-05-04 11:50 | NUR ---
PEEP DOWN TO 5; PATIENT HAS BEEN ON WEANING TRIAL SINCE 999; TOLERATING WELL.
--- NOTE | 2019-05-04 12:00 | NUR ---
DILAUDID 1MG IV FOR LE PAIN. PRECEDEX DRIP DOWN TO 0.3MCG/KG/HR.
--- NOTE | 2019-05-04 13:00 | NUR ---
PRECEDEX 0.2 MCG/KG/HR
--- NOTE | 2019-05-04 14:00 | NUR ---
PATIENT HIGH PRESSURING VENT.; RN INCREASED PRECEDEX BACK TO 0.4MCG.KG.HR.
--- NOTE | 2019-05-04 14:40 | NUR ---
EXTUBATED; OXYGEN PLACED AT 4L/NC.
--- NOTE | 2019-05-04 18:05 | NUR ---
SUMMARY: EXTUBATED AROUND 1440 AND RESTRAINTS DC'D. FOLLOWING COMMANDS AND ABLE TO SUCTION ORAL CAVITY. PRODUCTIVE COUGH OF THICK, CLEAR MUCUS. OXYGEN AT 4L/MIN VIA NC WHEN NOT ON BIPAP. BIPAP REQUIRED WHEN PATIENT SLEEPING; BIOX. DROPS DOWN IN LOW 80'S, WITH OXYGEN IN PLACE. BIPAP SETTINGS= 10/5 WITH RATE OF 10 AND FIO2 45%. RN HAD PATIENT NOT SPEAK TIL AFTER 5 PM TO PREVENT HARM TO LARYNX; ABLE TO NOD HEAD APPROPRIATELY AND OCCASIONALLY WHISPERED; EASILY UNDERSTOOD. AT 5PM RN GAVE PATIENT CUP OF ICE CHIPS; HAS GOOD SWALLOW. FAMILY WITH PATIENT AND MONITORING HIM TO PREVENT ASPIRATION. FENTANYL AND DILAUDID GIVEN T/O DAY TO HELP WITH PAIN MANAGEMENT OF EXTREMITIES. MOVES R FOOT IN CIRCLES AND REGULARLY FLEXES FOOT/LEG TO PREVENT FOOT DROP/WEAKNESS. FAMILY REMAINS VERY SUPPORTIVE AND ATTENTIVE. PATIENT WANTING THEM TO VISIT; GETS BORED EASILY. COUGH PRODUCTIVE OF PHLEGM AND PATIENT ABLE TO COUGH MUCUS UP INTO KLEENEX OR CUP. CONT. WITH LARGE AMOUNTS OF MUCUS BUT MANAGING SECRETIONS WELL. ICE CHIPS GIVEN AND HELPING WITH DRY MOUTH; NO ISSUES WITH ICE CHIPS, NOTED. TUBE FEEDING AND IVF (MAINT) DC'D.
--- NOTE | 2019-05-04 19:30 | NUR ---
ASSUMED CARE PT SITTING UPRIGHT IN BED. PT IS A&O AND REQUESTING TO BE REPOSITIONED WITH CEILING LIFT AND CANNOT ASSIST WITH TURNS. PRECEDEX AT 0.4MCG/KG/HR AND NS TKO. PT CURRENTLY ON 4L/NC (BASELINE O2 USE) AND DENIES SOB, PT ABLE TO EXPECTORATE SECRETIONS AND USE SUCTION TO ASSIST IN EXPULSION. VSS, O2 SATS 88-95% DEPENDENT ON ACTIVITY AND ECG SHOWS AFIB IN THE 90'S. RLE DRESSING REMAINS INTACT FROM LAST SHIFT AND STUMP SOCK IN PLACE TO L BKA. PT CONCERNED ABOUT RLE AND MARÍA ELENA HODGES FROM [facility] COME SEE HIM PRIOR TO DISCHARGE-WILL PASS OFF TO AM RN FOR FU ON MONDAY (PT AWARE).
[2019-05-05 03:37] LABS: BASOPHILS ABSOLUTE AUTO 0.04 K/mm3 (0.00-0.23); BASOPHILS PERCENT AUTO 1 % (0-2); EOSINOPHILS ABSOLUTE AUTO 0.32 K/mm3 (0.00-0.68); EOSINOPHILS PERCENT AUTO 4 % (0-6); Hematocrit 44.2 % (37.0-53.0); Hemoglobin 13.4 g/dL (13.5-17.5); IMMATURE GRAN ABSOLUTE AUTO 0.03 K/mm3 (0.00-0.10); IMMATURE GRAN PERCENT AUTO 0 % (0-1); LYMPHOCYTES ABSOLUTE AUTO 1.56 K/mm3 (0.84-5.20); LYMPHOCYTES PERCENT AUTO 20 % (21-46); MONOCYTES ABSOLUTE AUTO 0.54 K/mm3 (0.16-1.47); MONOCYTES PERCENT AUTO 7 % (4-13); Mean Corpuscular HGB 25.7 pg (26.0-34.0); Mean Corpuscular HGB Conc 30.3 g/dL (31.5-36.5); Mean Corpuscular Volume 85 fL (80-100); Mean Platelet Volume 11.4 fL (9.1-12.4); NEUTROPHILS ABSOLUTE AUTO 5.48 K/mm3 (1.96-9.15); NEUTROPHILS PERCENT AUTO 69 % (41-73); Platelet Count 187 K/mm3 (150-400); RDW Coefficient Variation 20.7 % (11.7-14.2); RDW Standard Deviation 61.1 fL (35.1-46.3); Red Blood Cell Count 5.21 M/mm3 (4.30-5.90); White Blood Cell Count 7.97 K/mm3 (4.00-11.30)
[2019-05-05 03:53] LABS: Albumin, Blood 2.5 g/dL (3.4-5.0); Anion Gap 3 mmol/L (6-16); Blood Urea Nitrogen 21 mg/dL (8-24); CO2, Blood 42 mmol/L (21-32); Calcium, Blood 8.4 mg/dL (8.5-10.1); Chloride, Blood 92 mmol/L (98-108); Creatinine, Blood 0.57 mg/dL (0.60-1.20); Glomerular Filtration Rate >60 (60-); Glucose, Blood 259 mg/dL (70-99); Magnesium, Blood 1.7 mg/dL (1.6-2.4); Phosphorus, Blood 3.1 mg/dL (2.5-4.9); Potassium, Blood 3.5 mmol/L (3.5-5.5); Sodium, Blood 137 mmol/L (136-145)
--- NOTE | 2019-05-05 06:28 | NUR ---
SHIFT SUMMARY PT SLEPT FOR MAJORITY OF SHIFT, PRECEDEX REMAINED AT 0.4MCG/KG/HR UNTIL 5 AND WAS TURNED OFF, PT REFUSED BIPAP OVERNIGHT. PT REQUESTED PAIN MEDICATION X 3 LAST NIGHT D/T LLE PAIN. PT REFUSED REPOSITIONING AFTER MIDNIGHT BUT DOES USE CALL LIGHT APPROPRIATELY TO CALL WHEN HE IS READY TO CHANGE POSITION. PT TOLERATION CLEAR LIQUIDS WELL AND IS LOOKING FORWARD TO BREAKFAST THIS AM. BP ELEVATED OCCASIONALLY, ECG SHOWS NSR W/ FIRST DEGREE AVB NOW AND O2 SATS 90-94% ON 4L HUMIDIFIED O2.
--- NOTE | 2019-05-05 07:30 | NUR ---
ASSUMED CARE OF PATIENT; SEE ASSESSMENT CHARTING FOR DETAILS. PATIENT AWAKE; DENIES ACUTE PAIN. LUNGS DIMINISHED T/O BUT SOUND CLEAR; BIOX. MAINTAINING IN LOW TO MID 90'S ON 4L/NC. DID NOT REQUIRE USE OF BIPAP LAST NIGHT; BIOX. MAINTAINED STABLE. WISE DRAINING LARGE AMOUNTS OF LT YELLOW URINE; REMAINS ON DIURETIC THERAPY. ABD. OBESE BUT SOFT; ACTIVE BOWEL TONES; FULL LIQUID TRAY ORDERED FOR BREAKFAST. CBG 244; 2UNITS NOVOLOG INSULIN PER SS COVERAGE. L STUMP SOCK D/I; PATIENT ABLE TO RAISE LEG (BKA) WITHOUT NEEDING USE OF HIS HANDS. MOVING RLE ROUTINELY TO KEEP STRENGTH AND MOBILITY INTACT.
--- NOTE | 2019-05-05 08:30 | NUR ---
LARGE SEMI-LIQUID BROWN STOOL (INCONTINENT); SKIN CLEANSED AND CATH. CARE DONE; LINENS CHANGED AND PATIENT GIVEN BATH; 3 STAFF MEMBERS REQUIRED. REPOSITIONED PATIENT WITH USE OF CEILING LIFT.
--- NOTE | 2019-05-05 09:45 | NUR ---
ANOTHER STOOL; LARGE; SEMI LIQUID; REPOSITIONED AFTER CLEANSED.
--- NOTE | 2019-05-05 10:30 | NUR ---
ANOTHER STOOL; CLEANSED. INSOLE TAPER CAME BY AND DISCUSSED WAYS TO HELP MANAGE LOOSE STOOLS. DR. PRETTY ALSO CAME BY; PATIENT TO CHANGE TO PCU STATUS.
--- NOTE | 2019-05-05 12:45 | NUR ---
REPORT TO TONNY NICOLE; PATIENT TO TRANSFER TO PCU, ROOM 11.
--- NOTE | 2019-05-05 12:50 | NUR ---
ANOTHER BM; CLEANED UP AND MOISTURE BARRIER CREAM APPLIED TO PREVENT SKIN BREAKDOWN.
--- NOTE | 2019-05-05 13:10 | NUR ---
TRANSFERRED TO PCU, ROOM 11, VIA BED; BELONGINGS, MEDS. 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 NO ACUTE DISTRESS OR DIFFICULTY. REMAINS IN "BIG BOY" BED; ROOM DOES HAVE A CEILING LIFT FOR REPOSITIONING PATIENT, ETC.
--- NOTE | 2019-05-05 17:52 | NUR ---
SHIFT SUMMARY ASSUMED CARE AT APPROXIMATELY 1330. PT ALERT AND ORIENTED. VS STABLE. HR AFIB 80-100. PT COMPLAINS OF PAIN IN HIS LLE THAT IS RELEIVED WITH MEDICATION ADMINISTRATION. LS COARSE THROUGHOUT. O2 SATS REMAIN ABOVE 90% ON 4L NC. DRESSING DRY AND INTACT TO LLE AND RLE. PT HAVING FREQUENT LOOSE STOOL. WILL CONTINUE TO MONITOR AND REPORT TO ONCOMING RN. CALL LIGHT IN REACH.
[2019-05-06 05:15] LABS: BASOPHILS ABSOLUTE AUTO 0.05 K/mm3 (0.00-0.23); BASOPHILS PERCENT AUTO 1 % (0-2); EOSINOPHILS ABSOLUTE AUTO 0.68 K/mm3 (0.00-0.68); EOSINOPHILS PERCENT AUTO 7 % (0-6); Hematocrit 43.4 % (37.0-53.0); IMMATURE GRAN ABSOLUTE AUTO 0.04 K/mm3 (0.00-0.10); IMMATURE GRAN PERCENT AUTO 0 % (0-1); LYMPHOCYTES ABSOLUTE AUTO 1.49 K/mm3 (0.84-5.20); LYMPHOCYTES PERCENT AUTO 16 % (21-46); MONOCYTES ABSOLUTE AUTO 0.67 K/mm3 (0.16-1.47); MONOCYTES PERCENT AUTO 7 % (4-13); Mean Corpuscular HGB 25.7 pg (26.0-34.0); Mean Corpuscular Volume 86 fL (80-100); Mean Platelet Volume 11.5 fL (9.1-12.4); NEUTROPHILS ABSOLUTE AUTO 6.22 K/mm3 (1.96-9.15); NEUTROPHILS PERCENT AUTO 68 % (41-73); Platelet Count 185 K/mm3 (150-400); RDW Coefficient Variation 20.6 % (11.7-14.2); RDW Standard Deviation 61.6 fL (35.1-46.3); Red Blood Cell Count 5.06 M/mm3 (4.30-5.90); White Blood Cell Count 9.15 K/mm3 (4.00-11.30)
[2019-05-06 06:33] LABS: Albumin, Blood 2.6 g/dL (3.4-5.0); Anion Gap 0 mmol/L (6-16); Blood Urea Nitrogen 18 mg/dL (8-24); CO2, Blood 44 mmol/L (21-32); Calcium, Blood 8.5 mg/dL (8.5-10.1); Chloride, Blood 93 mmol/L (98-108); Creatinine, Blood 0.55 mg/dL (0.60-1.20); Glomerular Filtration Rate >60 (60-); Glucose, Blood 147 mg/dL (70-99); Phosphorus, Blood 2.8 mg/dL (2.5-4.9); Potassium, Blood 3.8 mmol/L (3.5-5.5); Sodium, Blood 137 mmol/L (136-145)
--- NOTE | 2019-05-06 07:48 | NUR ---
SUMMARY NO ACUTE CHANGES NOTED THROUGH THE NIGHT. VSS. PAIN MEDICATED X1. DRSG REMAINS C/D/I. PT REMAINS ON 3L O2 VIA NC, FLUTTER VALVE WAS GIVEN, DEEP BREATHING AND COUGHING ENC. PT ATTEMPTED CPAP WHILE SLEEPING, HE BECAME TOO ANXIOUS AND REFUSED. COUGH IS SEMI PRODUCTIVE, PO FLUIDS ENC. REPORT GIVEN TO DAY RN
--- NOTE | 2019-05-06 17:00 | NUR ---
DECREASED O2 SATURATION AT APPROXIMATELY 1700 PT'S O2 SATURATION DECREASED TO THE MID 80'S. PT WAS ENCOURAGED TO COUGH AND DEEP BREATHE. PT ENCOURAGED TO USE FLUTTER VALVE. O2 TUBING CHANGED. O2 INCREASED FROM 3L TO 4L. PT RECOVERED WELL. PT DENIED SOB AND CHEST PAIN. LUNG SOUNDS COARSE T/O. WILL CONTINUE TO MONITOR.
--- NOTE | 2019-05-06 19:21 | NUR ---
SHIFT SUMMARY PAIN HAS BEEN MANAGED WITH MINIMAL PAIN MEDICATION THIS SHIFT. PT WORKED WITH PHYSICAL THERAPY AND SAT AT THE EDGE OF THE BED. PT IS ABLE TO ASSIST STAFF WITH REPOSITIONING. VSS. REPORT GIVEN TO GEOVANY LANCASTER.
[2019-05-07 04:04] LABS: BASOPHILS ABSOLUTE AUTO 0.04 K/mm3 (0.00-0.23); BASOPHILS PERCENT AUTO 1 % (0-2); EOSINOPHILS ABSOLUTE AUTO 0.49 K/mm3 (0.00-0.68); EOSINOPHILS PERCENT AUTO 7 % (0-6); Hematocrit 42.2 % (37.0-53.0); Hemoglobin 12.5 g/dL (13.5-17.5); IMMATURE GRAN ABSOLUTE AUTO 0.02 K/mm3 (0.00-0.10); IMMATURE GRAN PERCENT AUTO 0 % (0-1); LYMPHOCYTES ABSOLUTE AUTO 1.21 K/mm3 (0.84-5.20); LYMPHOCYTES PERCENT AUTO 17 % (21-46); MONOCYTES ABSOLUTE AUTO 0.77 K/mm3 (0.16-1.47); MONOCYTES PERCENT AUTO 11 % (4-13); Mean Corpuscular HGB 25.6 pg (26.0-34.0); Mean Corpuscular HGB Conc 29.6 g/dL (31.5-36.5); Mean Corpuscular Volume 86 fL (80-100); Mean Platelet Volume 11.3 fL (9.1-12.4); NEUTROPHILS ABSOLUTE AUTO 4.68 K/mm3 (1.96-9.15); NEUTROPHILS PERCENT AUTO 65 % (41-73); Platelet Count 196 K/mm3 (150-400); RDW Coefficient Variation 20.5 % (11.7-14.2); Red Blood Cell Count 4.89 M/mm3 (4.30-5.90); White Blood Cell Count 7.21 K/mm3 (4.00-11.30)
[2019-05-07 04:19] LABS: Albumin, Blood 2.6 g/dL (3.4-5.0); Anion Gap 2 mmol/L (6-16); Blood Urea Nitrogen 12 mg/dL (8-24); Bun/Creatinine Ratio 23.5 (12.0-20.0); CO2, Blood 41 mmol/L (21-32); Calcium, Blood 8.6 mg/dL (8.5-10.1); Chloride, Blood 96 mmol/L (98-108); Creatinine, Blood 0.51 mg/dL (0.60-1.20); Glomerular Filtration Rate >60 (60-); Glucose, Blood 148 mg/dL (70-99); Phosphorus, Blood 2.2 mg/dL (2.5-4.9); Potassium, Blood 3.8 mmol/L (3.5-5.5); Sodium, Blood 139 mmol/L (136-145)
--- NOTE | 2019-05-07 07:44 | NUR ---
SHIFT SUMMARY PATIENT PLEASENT AND COOPERATIVE THROUGHOUT THE NIGHT. PATIENT ALERT AND ORIENTED AT THE BEGINNING OF THE NIGHT, HAVING APPROPRIATE CONVERSATION WITH STAFF. HOWEVER, AT APPROX 0300 PATIENT BEGAN HAVING SOME CONFUSION AND FORGETFULNESS. PATIENT APPEARS TO RECALL WHERE HE IS AND WHY HE IS HERE BUT HE KEEPS ASKING TO GET UP SO THAT HE CAN GO TO HIS BEDROOM AND GET IN BED. THIS MORNING DURING BEDSIDE REPORT PATIENT KEPT ASKING WHY HIS BEDSIDE TABLE WAS VERTICAL INSTEAD OF HEROIZONTAL, HE ALSO WAS ASKING IF THE DR WHO HAD JUST BEEN IN TO SPEAK WITH THE PATIENT WAS WALKING UPSIDE DOWN. PATIENT REORIENTED EACH TIME ACCORDINGLY, WINDOW BLINDS OPENED SO THAT PATIENT COULD SEE OUTSIDE AND SEE THE DATLIGHT. PATIENT WORE HIS BIPAP FOR APPROX 15-20 MINUTES LAST NIGHT BEFORE REMOVING IT AND REFUSING TO WEAR IT AGAIN STATING, "THE PRESSURE IS TOO STRONG." DAY SHIFT RN AWARE OF THE CHANGE IN MENTATION THAT HAS APPEARED TO OCCUR AND WILL CONTINUE TO MONITOR MENTAL STATUS. PATIENT APPEARED TO BE ABLE TO MOVE SELF ABOUT IN BED, ASSISTANCE PROVIDED NEEDED AND UPON REQUEST. REPORT GIVEN TO ONCOMING RN.
--- NOTE | 2019-05-07 10:44 | NUR ---
Walking past room pt called out. Entered room pt sitting on floor holding himself up. Immediate assitsnce and assessment. no c-pine pain or s/s of head injury. no chest pain or dyspnea pt states he forgot. Immobilezed and support patient. nurisng and physical therpy came in positioned pt for safety and cofort returned to bed with lift. Nursing resumed care and assessment.
[2019-05-07 12:27] LABS: Digoxin (Lanoxin) 0.68 ug/mL (0.80-2.00)
--- NOTE | 2019-05-07 18:39 | NUR ---
PT HAS CONTINUED TO HAVE AN ALTERED MENTAL STATUS, HE IS ABLE TO STATE HE IS IN THE HOSPITAL, BUT THEN HAS TIMES WHEN HE BELIEVES HE IS IN A BARN OR UPSIDE DOWN. PT CONFABULATES STORIES TO FAMILY AND STAFF. PT DID HAVE A FALL/SLIDE OUT OF THE BED TODAY, MULTIPLE STAFF IN ROOM TO ASSIST IN GETTING PATIENT BACK TO BED SAFELY. PT CONTINUES TO USE 4 LPM VIA NC. HE HAS WISE CATH IN PLACE DRAINING CLEAR YELLOW URINE. REPOSITIONING PATIENT WITH CEILING LIFT FOR SAFETY. WILL CONTINUE TO MONITOR CLOSELY AND GIVE REPORT TO NOC RN.
--- NOTE | 2019-05-08 00:01 | NUR ---
AT APPROX 2349, PT PULLED PICC LINE FROM ARM AND THREW IT ONTO THE FLOOR. PT COMPLETELY DISORIENTED, DOES NOT FOLLOW DIRECTIONS SINCE START OF SHIFT. PCU CHARGE NURSE AND ICU CHARGE NURSE AT BEDSIDE WITH THIS RN TO ASSESS PT. LENGTH OF PICC LINE VERIFIED WITH ICU CHARGE NURSE AND PICC LINE HAS BEEN PULLED OUT IN ENTIRETY. ICU FRUIT II FARMWORKER TO BRING SUPERVISOR ADVICE TO BEDSIDE TO ATTEMPT TO PLACE POWERGLIDE FOR ACCESS.
--- NOTE | 2019-05-08 02:06 | NUR ---
UPDATE pt VSS. Resting comfortably in bed. Tolerating position changes. Pt with intermittant confusion. At times, pt disoriented. When asked where he is, pt responds "[facility]". when this RN asks to specify, pt cannot. Pt speaking nonsensically throughout shift, telling stories that have no substance. Pt sleeping on and off. instructor military science in with pt attempting to place new PIV since PICC was pulled by pt. No access at this time. See shift assessment for detailed systems assessment.
[2019-05-08 04:13] LABS: BASOPHILS ABSOLUTE AUTO 0.05 K/mm3 (0.00-0.23); BASOPHILS PERCENT AUTO 1 % (0-2); EOSINOPHILS ABSOLUTE AUTO 0.48 K/mm3 (0.00-0.68); EOSINOPHILS PERCENT AUTO 7 % (0-6); Hematocrit 41.1 % (37.0-53.0); Hemoglobin 12.1 g/dL (13.5-17.5); IMMATURE GRAN ABSOLUTE AUTO 0.02 K/mm3 (0.00-0.10); IMMATURE GRAN PERCENT AUTO 0 % (0-1); LYMPHOCYTES ABSOLUTE AUTO 1.28 K/mm3 (0.84-5.20); LYMPHOCYTES PERCENT AUTO 17 % (21-46); MONOCYTES ABSOLUTE AUTO 0.89 K/mm3 (0.16-1.47); MONOCYTES PERCENT AUTO 12 % (4-13); Mean Corpuscular HGB 25.8 pg (26.0-34.0); Mean Corpuscular HGB Conc 29.4 g/dL (31.5-36.5); Mean Corpuscular Volume 88 fL (80-100); Mean Platelet Volume 11.4 fL (9.1-12.4); NEUTROPHILS ABSOLUTE AUTO 4.66 K/mm3 (1.96-9.15); NEUTROPHILS PERCENT AUTO 63 % (41-73); Platelet Count 220 K/mm3 (150-400); RDW Coefficient Variation 20.7 % (11.7-14.2); RDW Standard Deviation 65.1 fL (35.1-46.3); Red Blood Cell Count 4.69 M/mm3 (4.30-5.90); White Blood Cell Count 7.38 K/mm3 (4.00-11.30)
[2019-05-08 04:27] LABS: Albumin, Blood 2.7 g/dL (3.4-5.0); Anion Gap 4 mmol/L (6-16); Blood Urea Nitrogen 10 mg/dL (8-24); Bun/Creatinine Ratio 19.9 (12.0-20.0); CO2, Blood 39 mmol/L (21-32); Calcium, Blood 8.6 mg/dL (8.5-10.1); Chloride, Blood 99 mmol/L (98-108); Glomerular Filtration Rate >60 (60-); Glucose, Blood 133 mg/dL (70-99); Phosphorus, Blood 2.3 mg/dL (2.5-4.9); Sodium, Blood 142 mmol/L (136-145)
--- NOTE | 2019-05-08 04:56 | NUR ---
Shift Summary Mentation: Upon shift change, pt disoriented, restless, speaking nonsensically. Pt ultimately pulled out PICC line from PIERRE, pulled all tele wires off, noncompliant with O2 therapy. Pt not compliant with redirection. At approx 0200, pt suddenly became oriented. Able to answer questions appropriately, able to state to this RN that he is in PCU 11 without prompting, communicating sensically. When this RN asked pt what he remembers about the last 24 hrs, pt states "I slept for the whole day, I don't remember anything." Otherwise VSS. Sims patent and draining to gravity. Pt turned q2 and tolerates well, ceiling lift used. IV access in LH, S/L. Pt compliant with BIPAP for approx 10 minutes, then states "I feel too closed in" Pt asleep on and off this shift, for very brief durations. Will continue to monitor to shift change.
--- NOTE | 2019-05-08 07:00 | NUR ---
REPORT FROM FRACISCO LANCASTER. ASSUMED PT CARE.
--- NOTE | 2019-05-08 07:28 | NUR ---
ASSESSMENT CHARTED, DR PRESCOTT AT BEDSIDE, PT DOZES EASILY. ALERT AND ORIENTED AT THIS TIME. DENIES PAIN/NEEDS.
--- NOTE | 2019-05-08 08:25 | NUR ---
DR CHESTER TO ROOM. PLAN TO GET PT POTENTIALLY DC TO SNF TODAY. PT STATES HE "ISNT READY". EXPLAINED TO PT THAT SHOULD BED AT SNF BE AVAIL, [place] IS BEST. PT AGREEABLE. PT CHANGED TO MEDICAL STATUS. PT MEDICATED PER EMAR.
--- NOTE | 2019-05-08 09:15 | NUR ---
PT IN NO DISTRESS. DENIES NEEDS.
--- NOTE | 2019-05-08 10:06 | NUR ---
PHYSICAL THERAPY TO ROOM TO SEE HOW PT DOES WITH ROM. NEW TELE PADS PLACED.
--- NOTE | 2019-05-08 11:23 | NUR ---
PT INCONTINENT OF STOOL. PERICARE PROVIDED. CHUX PADS REPLACED. PT ABLE TO ASSIST ROLLING AND ADJUSTING POSITION. PT HAS NO COMPLAINTS.
--- NOTE | 2019-05-08 11:48 | NUR ---
OCCUPATIONAL THERAPY AT BEDSIDE. LUNCH PROVIDED. WILL PROVIDE INSULIN COVERAGE PER EMAR FOR CBG OF 209
--- NOTE | 2019-05-08 12:55 | NUR ---
PT FAMILY TO ROOM.
--- NOTE | 2019-05-08 13:45 | NUR ---
PT SON WITH MULT QUESTIONS REGARDING POTENTIAL SNF PLACEMENT. ALL ISSUES/QUESTIONS ADDRESSED. SON FELT LIKE PT WAS BEING "PUSHED OUT BEFORE HE WAS NORMAL FOR MORE THAN A DAY" EXPLAINED TO SON THAT TX PROCESS TO A SNF SOMETIMES TAKES A FEW DAYS AND THAT THE PROVIDER WONT SEND PT IF NOT MEDICALLY READY. SON SEEMS TO UNDERSTAND.
--- NOTE | 2019-05-08 14:15 | NUR ---
STUMP CLEANED WITH WATER AND PEROXIDE. PT CARROLL WELL. MILLER WELL APPEARING. SOME BRUISING NOTED. NEW ABD PAD PLACED. STUMP SOCK PLACED BACK ON.
--- NOTE | 2019-05-08 14:20 | NUR ---
PT THOUGHT HE HAD STOOLED. ROLLED PT FOR PERICARE. NO STOOL NOTED. PAD CHANGED. ASSISTED PT IN PULLING SELF UP IN BED. PILLOW PROPPED UNDER STUMP.
--- NOTE | 2019-05-08 14:35 | NUR ---
PT TALKING ON PHONE WITH FRIENDS.
--- NOTE | 2019-05-08 17:18 | NUR ---
PT MEDICATED PER EMAR. DINNER TRAY PROVIDED AND SET UP FOR PT.
--- NOTE | 2019-05-09 05:33 | NUR ---
PATIENT SLEPT WITH CPAP ON SINE JUST AFTER 2300. PATIENT HAS SLEPT THROUGH OUT THE NIGHT WITH EVERY TWO HOUR TURNS. PATIENT NOT PARTICAPATING IN TURNS. DENIES ANY PAIN OR NEEDS. PATIENT JUST WANTING TO SLEEP. NO CONFUSION THROUGH THE NIGHT.
--- NOTE | 2019-05-09 05:58 | NUR ---
PATIENT WOKE UP AND TOOK OF CPAP. PLACED ON 5L NC.
--- NOTE | 2019-05-09 07:24 | NUR ---
pt laying in bed watching tv, states he just woke, he reports he had a good night, used the cpap most of the night, a/ox3, cooperative with care, follows commands well, denies any complaints of pain, states he is comfortable, lungs are clear in upper khan, dim in bases, no cough noted at this time, is currently on 5 liters 02 via n/c, resp even and unlabored, hrirr, no edema noted, radial pulsed +2, lbka, stump has dressing in place no drainage noted, iv to left hand site is clear and patent, btx4, abd large soft nontender, voids via castrejon cath, skin has yeast in folds, coccyx is pink, wound to right soares, dressing in place, scabs on toes, moves upper ext well, drea, call light in reach, pt able to make his needs known, bed in low position, bedside table in reach.
--- NOTE | 2019-05-09 18:05 | NUR ---
PT HAS BEEN DISCHARGED TO [facility] FOR SNF, REPORT WAS GIVEN TO RECIEVING NURSE AT 1500. DRESSING TO STUMP WAS CHANGED TODAY, WOUND IS CLEAN. MEDICATED FOR PAIN ONCE. LEFT VIA GURNEY WITH TRANSPORT TEAM.
== END 2019-05-09 18:15 | DRG 853 ==
LOC: ER 07:11 → PCU 08:18 → SURS 08:18 → ICUE 08:18 → ICUW 08:18 → MEDS 08:18 → ER 09:38 → ICUE 09:45 → MEDS 04-21 13:07 → PCU 04-26 19:24 → SURS 04-30 18:16 → ICUE 05-01 16:00 → PCU 05-05 13:05
PROVIDERS: Anesthesiology; Emergency Medicine; Internal Medicine; Internal Medicine Critical Care Medicine; Internal Medicine Pulmonary Disease; Orthopaedic Surgery; ADMIT Internal Medicine
PROC: 5A09357 Assistance with Respiratory Ventilation, Less than 24 Consecutive Hours, Continuous Positive Airway Pressure (ICD-10-PCS; 2019-04-15)
PROC: 3E033XZ Introduction of Vasopressor into Peripheral Vein, Percutaneous Approach (ICD-10-PCS; 2019-04-16)
PROC: B2111ZZ Fluoroscopy of Multiple Coronary Arteries using Low Osmolar Contrast (ICD-10-PCS; 2019-04-26)
PROC: 0BH17EZ Insertion of Endotracheal Airway into Trachea, Via Natural or Artificial Opening (ICD-10-PCS; 2019-05-01)
PROC: 5A1945Z Respiratory Ventilation, 24-96 Consecutive Hours (ICD-10-PCS; 2019-05-01)
PROC: 5A12012 Performance of Cardiac Output, Single, Manual (ICD-10-PCS; 2019-05-01)
PROC: 0Y6J0Z3 Detachment at Left Lower Leg, Low, Open Approach (ICD-10-PCS; principal; 2019-05-01 12:30)
DX: A41.50 Gram-negative sepsis, unspecified (principal); J96.21 Acute and chronic respiratory failure with hypoxia; J96.22 Acute and chronic respiratory failure with hypercapnia; R65.21 Severe sepsis with septic shock; K72.00 Acute and subacute hepatic failure without coma; I46.2 Cardiac arrest due to underlying cardiac condition; G92 Toxic encephalopathy; A48.0 Gas gangrene; I50.43 Acute on chronic combined systolic (congestive) and diastolic (congestive) heart failure; Z68.43 Body mass index [BMI] 50.0-59.9, adult; I42.9 Cardiomyopathy, unspecified; I48.92 Unspecified atrial flutter; L03.116 Cellulitis of left lower limb; M31.0 Hypersensitivity angiitis; E11.52 Type 2 diabetes mellitus with diabetic peripheral angiopathy with gangrene; N17.9 Acute kidney failure, unspecified; M86.172 Other acute osteomyelitis, left ankle and foot; L97.426 Non-pressure chronic ulcer of left heel and midfoot with bone involvement without evidence of necrosis; E11.40 Type 2 diabetes mellitus with diabetic neuropathy, unspecified; E66.01 Morbid (severe) obesity due to excess calories; Z79.4 Long term (current) use of insulin; E11.621 Type 2 diabetes mellitus with foot ulcer; E11.649 Type 2 diabetes mellitus with hypoglycemia without coma; I25.10 Atherosclerotic heart disease of native coronary artery without angina pectoris; I25.2 Old myocardial infarction; M10.9 Gout, unspecified; I34.0 Nonrheumatic mitral (valve) insufficiency; E87.70 Fluid overload, unspecified; T36.0X5A Adverse effect of penicillins, initial encounter; Y92.9 Unspecified place or not applicable; R19.5 Other fecal abnormalities; G47.33 Obstructive sleep apnea (adult) (pediatric); I48.91 Unspecified atrial fibrillation; I95.9 Hypotension, unspecified; T46.1X5A Adverse effect of calcium-channel blockers, initial encounter; Y92.239 Unspecified place in hospital as the place of occurrence of the external cause; E83.39 Other disorders of phosphorus metabolism; Z79.82 Long term (current) use of aspirin; Z87.891 Personal history of nicotine dependence
CPT/HCPCS: 31720; 36415; 36569; 36600; 51702; 71045; 73620; 80048; 80053; 80069; 80076; 80162; 80202; 81001; 82248; 82330; 82435; 82550; 82553; 82803; 82947; 83605; 83690; 83735; 83880; 84100; 84132; 84295; 84484; 85025; 85027; 85610; 85651; 85730; 86140; 86850; 86900; 86901; 87040; 87070; 87071; 87075; 87086; 87147; 87205; 87493; 88307; 93005; 93010; 93458; 94002; 94003; 94660; 94667; 94760; 94762; 96365-59; 96375-59; 97110; 97112; 97162; 97164; 97166; 97168; 97530; 99152; 99153; 99285-25; A9270; C1751; C1769; C1894; C8929; C9113; J0171; J0330; J0690; J1100; J1160; J1170; J1644; J1650; J1720; J1940; J1956; J2250; J2370; J2405; J2543; J2550; J2704; J2710; J3010; J3370; J3430; J7030; J7050; J7060; J7120; J7799; P9046; Q9957; Q9967

== ENCOUNTER → 2020-02-05 | Outpatient (CLI) | payer OTHER | END | disposition home or self-care (01) | LOC: LAB UVN 06:14 → EDSTATUS 11:05 | DX: E11.42 Type 2 diabetes mellitus with diabetic polyneuropathy (principal) | CPT/HCPCS: 83036 ==

== ENCOUNTER → 2020-07-22 | Outpatient (CLI) | payer OTHER | END | disposition home or self-care (01) | LOC: LAB UVN 05:44 → EDSTATUS 11:27 | DX: E11.42 Type 2 diabetes mellitus with diabetic polyneuropathy (principal) | CPT/HCPCS: 83036 ==

== ENCOUNTER → 2020-08-13 | Outpatient (CLI) | payer OTHER ==
[2020-08-13 03:31] LABS: Anion Gap 6 mmol/L (6-16); Blood Urea Nitrogen 11 mg/dL (8-24); Bun/Creatinine Ratio 18.9 (12.0-20.0); CO2, Blood 33 mmol/L (21-32); Calcium, Blood 9.3 mg/dL (8.5-10.1); Chloride, Blood 100 mmol/L (98-108); Creatinine, Blood 0.58 mg/dL (0.60-1.20); Glomerular Filtration Rate >60 (60-); Glucose, Blood 171 mg/dL (70-99); Potassium, Blood 3.9 mmol/L (3.5-5.5); Sodium, Blood 139 mmol/L (136-145)
== END | disposition home or self-care (01) ==
LOC: LAB UVN 03:06 → EDSTATUS 15:07
PROVIDERS: Family Medicine
DX: I50.9 Heart failure, unspecified (principal)
CPT/HCPCS: 80048; 83880

== ENCOUNTER → 2020-08-26 | Outpatient (CLI) | payer OTHER ==
[2020-08-26 20:18] LABS: Alanine Aminotransfer (ALT/SGP 17 U/L (12-78); Albumin, Blood 3.1 g/dL (3.4-5.0); Albumin/Globulin Ratio 0.9 (0.8-1.8); Alk Phos 152 U/L (50-136); Anion Gap 5 mmol/L (6-16); Aspartate Aminotrans (AST/SGOT 16 U/L (12-37); Bilirubin, Total 0.5 mg/dL (0.1-1.0); Blood Urea Nitrogen 18 mg/dL (8-24); Bun/Creatinine Ratio 25.7 (12.0-20.0); CO2, Blood 34 mmol/L (21-32); Calcium, Blood 9.3 mg/dL (8.5-10.1); Chloride, Blood 101 mmol/L (98-108); Globulin, Blood 3.6 g/dL (2.2-4.0); Glomerular Filtration Rate >60 (60-); Glucose, Blood 190 mg/dL (70-99); Potassium, Blood 4.4 mmol/L (3.5-5.5); Sodium, Blood 140 mmol/L (136-145); Total Protein, Blood 6.7 g/dL (6.4-8.2)
== END | disposition home or self-care (01) ==
LOC: EDSTATUS 10:22 → LAB UVN 17:57
PROVIDERS: Family Medicine
DX: I50.42 Chronic combined systolic (congestive) and diastolic (congestive) heart failure (principal)
CPT/HCPCS: 80048; 80053; 83880

== ENCOUNTER → 2020-08-31 | Outpatient (CLI) | payer OTHER ==
[2020-08-31 22:09] LABS: Anion Gap 5 mmol/L (6-16); Blood Urea Nitrogen 16 mg/dL (8-24); Bun/Creatinine Ratio 22.8 (12.0-20.0); CO2, Blood 34 mmol/L (21-32); Calcium, Blood 8.9 mg/dL (8.5-10.1); Chloride, Blood 99 mmol/L (98-108); Glomerular Filtration Rate >60 (60-); Glucose, Blood 241 mg/dL (70-99); Potassium, Blood 4.5 mmol/L (3.5-5.5); Sodium, Blood 138 mmol/L (136-145); Uric Acid, Blood 5.5 mg/dL (3.5-7.2)
== END | disposition home or self-care (01) ==
LOC: EDSTATUS 10:48 → LAB UVN 21:53
PROVIDERS: Nurse Practitioner Adult Health
DX: R60.9 Edema, unspecified (principal)
CPT/HCPCS: 80048; 84550

== ENCOUNTER → 2020-09-01 | Outpatient (CLI) | payer OTHER | END | disposition home or self-care (01) | LOC: EDSTATUS 10:49 → LAB UVN 14:51 | DX: R60.9 Edema, unspecified (principal) | CPT/HCPCS: 83880 ==

== ENCOUNTER → 2020-09-14 | Outpatient (CLI) | payer OTHER ==
[2020-09-14 19:03] LABS: Hematocrit 42.5 % (37.0-53.0); Hemoglobin 12.9 g/dL (13.5-17.5); Mean Corpuscular HGB 26.3 pg (26.0-34.0); Mean Corpuscular HGB Conc 30.4 g/dL (31.5-36.5); Mean Corpuscular Volume 87 fL (80-100); Mean Platelet Volume 11.9 fL (9.1-12.4); Platelet Count 231 K/mm3 (150-400); White Blood Cell Count 6.67 K/mm3 (4.00-11.30)
[2020-09-14 19:18] LABS: Alanine Aminotransfer (ALT/SGP 23 U/L (12-78); Albumin, Blood 3.3 g/dL (3.4-5.0); Albumin/Globulin Ratio 0.9 (0.8-1.8); Alk Phos 145 U/L (50-136); Anion Gap 5 mmol/L (6-16); Aspartate Aminotrans (AST/SGOT 18 U/L (12-37); Bilirubin, Total 0.5 mg/dL (0.1-1.0); Blood Urea Nitrogen 13 mg/dL (8-24); Bun/Creatinine Ratio 20.2 (12.0-20.0); CO2, Blood 33 mmol/L (21-32); Calcium, Blood 9.3 mg/dL (8.5-10.1); Chloride, Blood 101 mmol/L (98-108); Creatinine, Blood 0.64 mg/dL (0.60-1.20); Globulin, Blood 3.5 g/dL (2.2-4.0); Glomerular Filtration Rate >60 (60-); Glucose, Blood 332 mg/dL (70-99); Potassium, Blood 4.4 mmol/L (3.5-5.5); Sodium, Blood 139 mmol/L (136-145); Total Protein, Blood 6.8 g/dL (6.4-8.2)
== END | disposition home or self-care (01) ==
LOC: EDSTATUS 10:50 → LAB UVN 18:01
PROVIDERS: Nurse Practitioner Adult Health
DX: U07.1 COVID-19 (principal)
CPT/HCPCS: 80053; 82306; 85027

== ENCOUNTER → 2020-09-26 | Outpatient (CLI) | payer OTHER ==
[2020-09-26 01:06] LABS: Anion Gap 5 mmol/L (6-16); Blood Urea Nitrogen 20 mg/dL (8-24); Bun/Creatinine Ratio 27.5 (12.0-20.0); CO2, Blood 34 mmol/L (21-32); Calcium, Blood 8.8 mg/dL (8.5-10.1); Chloride, Blood 102 mmol/L (98-108); Creatinine, Blood 0.73 mg/dL (0.60-1.20); Glomerular Filtration Rate >60 (60-); Glucose, Blood 202 mg/dL (70-99); Potassium, Blood 4.5 mmol/L (3.5-5.5); Sodium, Blood 141 mmol/L (136-145)
== END | disposition home or self-care (01) ==
LOC: LAB UVN 00:20 → EDSTATUS 10:51
PROVIDERS: Family Medicine
DX: I50.42 Chronic combined systolic (congestive) and diastolic (congestive) heart failure (principal)
CPT/HCPCS: 80048

== ENCOUNTER → 2020-10-14 | Outpatient (CLI) | payer OTHER | END | disposition home or self-care (01) | LOC: LAB UVN 04:05 → EDSTATUS 14:37 | DX: E11.42 Type 2 diabetes mellitus with diabetic polyneuropathy (principal) | CPT/HCPCS: 83036 ==

== ENCOUNTER → 2020-11-11 | Outpatient (CLI) | payer OTHER | END | disposition home or self-care (01) | LOC: EDSTATUS 11:58 → LAB UVN 20:30 | DX: E55.9 Vitamin D deficiency, unspecified (principal) | CPT/HCPCS: 82306 ==

== ENCOUNTER → 2020-12-01 | Outpatient (CLI) | payer OTHER ==
[2020-12-02 06:30] LABS: Anion Gap 5 mmol/L (6-16); Blood Urea Nitrogen 16 mg/dL (8-24); CO2, Blood 34 mmol/L (21-32); Calcium, Blood 9.8 mg/dL (8.5-10.1); Chloride, Blood 98 mmol/L (98-108); Creatinine, Blood 0.57 mg/dL (0.60-1.20); Glomerular Filtration Rate >60 (60-); Glucose, Blood 263 mg/dL (70-99); Sodium, Blood 137 mmol/L (136-145)
== END | disposition home or self-care (01) ==
LOC: LAB UVN 06:13 → EDSTATUS 12-03 13:21
PROVIDERS: Nurse Practitioner Adult Health
DX: I42.8 Other cardiomyopathies (principal)
CPT/HCPCS: 80048

== ENCOUNTER → 2020-12-15 | Outpatient (CLI) | payer OTHER | END | disposition home or self-care (01) | LOC: LAB UVN 09:00 → EDSTATUS 13:22 | DX: E55.9 Vitamin D deficiency, unspecified (principal) | CPT/HCPCS: 82306 ==

== ENCOUNTER → 2021-01-06 | Outpatient (CLI) | payer OTHER | END | disposition home or self-care (01) | LOC: LAB UVN 06:31 → EDSTATUS 13:18 | DX: E11.42 Type 2 diabetes mellitus with diabetic polyneuropathy (principal) | CPT/HCPCS: 83036 ==

== ENCOUNTER → 2021-02-11 | Outpatient (CLI) | payer OTHER ==
[2021-02-12 06:58] LABS: Anion Gap 4 mmol/L (6-16); Blood Urea Nitrogen 17 mg/dL (8-24); Bun/Creatinine Ratio 25.4 (12.0-20.0); CO2, Blood 36 mmol/L (21-32); Calcium, Blood 8.8 mg/dL (8.5-10.1); Chloride, Blood 98 mmol/L (98-108); Creatinine, Blood 0.67 mg/dL (0.60-1.20); Glomerular Filtration Rate >60 (60-); Glucose, Blood 233 mg/dL (70-99); Potassium, Blood 4.3 mmol/L (3.5-5.5); Sodium, Blood 138 mmol/L (136-145)
== END | disposition home or self-care (01) ==
LOC: LAB UVN 06:42 → EDSTATUS 02-15 08:55
PROVIDERS: Internal Medicine
DX: I50.42 Chronic combined systolic (congestive) and diastolic (congestive) heart failure (principal); E87.70 Fluid overload, unspecified
CPT/HCPCS: 80048

== ENCOUNTER → 2021-02-13 | Outpatient (CLI) | payer OTHER ==
[2021-02-13 19:06] LABS: Anion Gap 3 mmol/L (6-16); Blood Urea Nitrogen 18 mg/dL (8-24); CO2, Blood 36 mmol/L (21-32); Calcium, Blood 9.2 mg/dL (8.5-10.1); Chloride, Blood 98 mmol/L (98-108); Creatinine, Blood 0.64 mg/dL (0.60-1.20); Glomerular Filtration Rate >60 (60-); Glucose, Blood 175 mg/dL (70-99); Potassium, Blood 4.3 mmol/L (3.5-5.5); Sodium, Blood 137 mmol/L (136-145)
== END | disposition home or self-care (01) ==
LOC: EDSTATUS 08:56 → LAB UVN 16:45
PROVIDERS: Internal Medicine
DX: I50.42 Chronic combined systolic (congestive) and diastolic (congestive) heart failure (principal); E11.3293 Type 2 diabetes mellitus with mild nonproliferative diabetic retinopathy without macular edema, bilateral
CPT/HCPCS: 80048

== ENCOUNTER → 2021-02-17 | Outpatient (CLI) | payer OTHER ==
[2021-02-17 06:04] LABS: Source, Urine Catheter
[2021-02-17 06:14] LABS: Appearance, Urine Clear (Clear); Bilirubin, Urine Neg (Neg); Blood, Urine 5+ (Neg); Color, Urine Yellow (P-Yellow); Glucose Qualitative, Urine Neg (Neg); Ketones, Urine Neg (Neg); Leukocyte Esterase, Urine 2+ (Neg); Nitrite, Urine Neg (Neg); Protein, Urine 3+ (Neg); Urobilinogen, Urine 1+ (Normal)
[2021-02-17 06:20] LABS: Bacteria Mod /hpf; Red Blood Cells, Urine 25-50 /hpf (0-2); Squamous Epithelial Cells Not Seen /hpf (Few)
[2021-02-17 06:21] LABS: Mucus Light (0-Heavy)
== END | disposition home or self-care (01) ==
LOC: LAB UVN 06:03 → EDSTATUS 08:57
PROVIDERS: Internal Medicine
DX: N39.0 Urinary tract infection, site not specified (principal)
CPT/HCPCS: 81001; 87077; 87086; 87186

== ENCOUNTER → 2021-02-25 | Outpatient (CLI) | payer OTHER ==
[2021-02-25 18:13] LABS: BASOPHILS ABSOLUTE AUTO 0.04 K/mm3 (0.00-0.23); BASOPHILS PERCENT AUTO 1 % (0-2); EOSINOPHILS ABSOLUTE AUTO 0.19 K/mm3 (0.00-0.68); EOSINOPHILS PERCENT AUTO 2 % (0-6); Hematocrit 38.1 % (37.0-53.0); Hemoglobin 11.6 g/dL (13.5-17.5); IMMATURE GRAN ABSOLUTE AUTO 0.04 K/mm3 (0.00-0.10); IMMATURE GRAN PERCENT AUTO 1 % (0-1); LYMPHOCYTES ABSOLUTE AUTO 0.98 K/mm3 (0.84-5.20); LYMPHOCYTES PERCENT AUTO 11 % (21-46); MONOCYTES PERCENT AUTO 8 % (4-13); Mean Corpuscular HGB 27.6 pg (26.0-34.0); Mean Corpuscular HGB Conc 30.4 g/dL (31.5-36.5); Mean Corpuscular Volume 91 fL (80-100); Mean Platelet Volume 11.7 fL (9.1-12.4); NEUTROPHILS ABSOLUTE AUTO 6.69 K/mm3 (1.96-9.15); NEUTROPHILS PERCENT AUTO 77 % (41-73); Platelet Count 233 K/mm3 (150-400); RDW Coefficient Variation 15.2 % (11.7-14.2); RDW Standard Deviation 50.3 fL (35.1-46.3); Red Blood Cell Count 4.21 M/mm3 (4.30-5.90); White Blood Cell Count 8.64 K/mm3 (4.00-11.30)
== END | disposition home or self-care (01) ==
LOC: EDSTATUS 08:58 → LAB RH 14:50 → LAB UVN 14:50
PROVIDERS: Internal Medicine
DX: E11.3293 Type 2 diabetes mellitus with mild nonproliferative diabetic retinopathy without macular edema, bilateral (principal)
CPT/HCPCS: 85025

== ENCOUNTER → 2021-03-09 | Outpatient (CLI) | payer OTHER ==
[2021-03-10 07:03] LABS: Hematocrit 39.1 % (37.0-53.0); Hemoglobin 11.6 g/dL (13.5-17.5); Mean Corpuscular HGB Conc 29.7 g/dL (31.5-36.5); Mean Corpuscular Volume 91 fL (80-100); Mean Platelet Volume 11.5 fL (9.1-12.4); Platelet Count 239 K/mm3 (150-400); RDW Standard Deviation 49.7 fL (35.1-46.3); White Blood Cell Count 7.66 K/mm3 (4.00-11.30)
[2021-03-10 07:11] LABS: Anion Gap 3 mmol/L (6-16); Blood Urea Nitrogen 17 mg/dL (8-24); CO2, Blood 37 mmol/L (21-32); Calcium, Blood 8.9 mg/dL (8.5-10.1); Chloride, Blood 95 mmol/L (98-108); Creatinine, Blood 0.81 mg/dL (0.60-1.20); Glomerular Filtration Rate >60 (60-); Glucose, Blood 259 mg/dL (70-99); Potassium, Blood 4.6 mmol/L (3.5-5.5); Sodium, Blood 135 mmol/L (136-145)
== END | disposition home or self-care (01) ==
LOC: EDSTATUS 14:23 → LAB UVN 22:00
PROVIDERS: Internal Medicine
DX: E11.3293 Type 2 diabetes mellitus with mild nonproliferative diabetic retinopathy without macular edema, bilateral (principal)
CPT/HCPCS: 80048; 85027

== ENCOUNTER → 2021-03-31 | Outpatient (CLI) | payer OTHER | LOC: LAB UVN 05:36 → EDSTATUS 10:26 | DX: E11.42 Type 2 diabetes mellitus with diabetic polyneuropathy (principal); Z79.84 Long term (current) use of oral hypoglycemic drugs | CPT/HCPCS: 83036 ==

== ENCOUNTER → 2021-07-14 | Outpatient (CLI) | payer OTHER ==
[2021-07-14 14:33] LABS: Appearance, Urine Clear (Clear); Bilirubin, Urine Neg (Neg); Blood, Urine 1+ (Neg); Color, Urine Yellow (P-Yellow); Glucose Qualitative, Urine 4+ (Neg); Ketones, Urine Neg (Neg); Leukocyte Esterase, Urine 2+ (Neg); Nitrite, Urine Neg (Neg); Protein, Urine Neg (Neg); Specific Gravity, Urine 1.005 (1.003-1.022); Urobilinogen, Urine NORM (Normal)
[2021-07-14 14:52] LABS: Squamous Epithelial Cells Few /hpf (Few)
[2021-07-14 14:59] LABS: Bacteria Few /hpf
== END | disposition home or self-care (01) ==
LOC: EDSTATUS 11:32 → LAB 12:14 → LAB UVN 12:14
PROVIDERS: Internal Medicine
DX: N39.0 Urinary tract infection, site not specified (principal); R30.0 Dysuria; Z87.440 Personal history of urinary (tract) infections
CPT/HCPCS: 81001; 87077; 87086; 87147; 87186

== ENCOUNTER → 2021-09-20 | Outpatient (CLI) | payer OTHER ==
[2021-09-20 18:57] LABS: Appearance, Urine Clear (Clear); Bilirubin, Urine Neg (Neg); Blood, Urine Neg (Neg); Glucose Qualitative, Urine 4+ (Neg); Ketones, Urine Neg (Neg); Leukocyte Esterase, Urine 1+ (Neg); Nitrite, Urine Neg (Neg); Protein, Urine 1+ (Neg); Specific Gravity, Urine 1.015 (1.003-1.022); Urobilinogen, Urine NORM (Normal)
[2021-09-20 19:13] LABS: Color, Urine Pale Yellow (P-Yellow)
[2021-09-20 19:14] LABS: Bacteria Few /hpf; Red Blood Cells, Urine 0-2 /hpf (0-2); Squamous Epithelial Cells Rare /hpf (Few)
== END | disposition home or self-care (01) ==
LOC: EDSTATUS 13:10 → LAB UVN 18:23
PROVIDERS: Internal Medicine
DX: N39.0 Urinary tract infection, site not specified (principal)
CPT/HCPCS: 81001; 87077; 87086; 87147; 87186

== ENCOUNTER → 2022-03-09 | Outpatient (CLI) | payer OTHER | END | disposition home or self-care (01) | LOC: LAB UVN 07:35 → EDSTATUS 15:36 | DX: E11.3293 Type 2 diabetes mellitus with mild nonproliferative diabetic retinopathy without macular edema, bilateral (principal) | CPT/HCPCS: 83036 ==

== ENCOUNTER → 2022-04-07 | Outpatient (CLI) | payer OTHER ==
[2022-04-07 21:33] LABS: Bun/Creatinine Ratio 27.4 (12.0-20.0); Creatinine, Blood 0.62 mg/dL (0.60-1.20); Potassium, Blood 4.3 mmol/L (3.5-5.5)
== END | disposition home or self-care (01) ==
LOC: EDSTATUS 12:40 → LAB UVN 20:58
PROVIDERS: Internal Medicine
DX: I50.42 Chronic combined systolic (congestive) and diastolic (congestive) heart failure (principal)
CPT/HCPCS: 80048

== ENCOUNTER → 2022-10-23 | Outpatient (CLI) | payer OTHER ==
[2022-10-23 13:55] LABS: Source, Urine Foley catheter
[2022-10-23 14:17] LABS: Appearance, Urine Clear (Clear); Bilirubin, Urine Neg (Neg); Blood, Urine 1+ (Neg); Color, Urine Yellow (P-Yellow); Glucose Qualitative, Urine Neg (Neg); Ketones, Urine Neg (Neg); Leukocyte Esterase, Urine Neg (Neg); Nitrite, Urine Neg (Neg); Protein, Urine 3+ (Neg); Urobilinogen, Urine NORM (Normal); pH, Urine 6.5 (5.0-8.0)
[2022-10-23 14:24] LABS: Bacteria Few /hpf; Hyaline Casts 0-2 /lpf (0-2); Mucus Light (0-Heavy); Squamous Epithelial Cells Rare /hpf (Few)
== END | disposition home or self-care (01) ==
LOC: EDSTATUS 10:31 → LAB UVN 13:51
PROVIDERS: Internal Medicine
DX: E11.3293 Type 2 diabetes mellitus with mild nonproliferative diabetic retinopathy without macular edema, bilateral (principal); E78.5 Hyperlipidemia, unspecified; B37.9 Candidiasis, unspecified
CPT/HCPCS: 81001; 87086

== ENCOUNTER → 2022-10-23 | Outpatient (CLI) | payer OTHER ==
[2022-10-23 12:34] LABS: Hematocrit 38.6 % (37.0-53.0); Hemoglobin 11.9 g/dL (13.5-17.5); Mean Corpuscular HGB Conc 30.8 g/dL (31.5-36.5); Mean Corpuscular Volume 85 fL (80-100); Mean Platelet Volume 11.5 fL (9.1-12.4); Platelet Count 221 K/mm3 (150-400); RDW Coefficient Variation 17.4 % (11.7-14.2); RDW Standard Deviation 53.7 fL (35.1-46.3); Red Blood Cell Count 4.57 M/mm3 (4.30-5.90); White Blood Cell Count 6.15 K/mm3 (4.00-11.30)
[2022-10-23 12:49] LABS: Bun/Creatinine Ratio 22.1 (12.0-20.0); Calcium, Blood 8.9 mg/dL (8.5-10.1); Creatinine, Blood 0.9 mg/dL (0.60-1.20); Potassium, Blood 5.1 mmol/L (3.5-5.5)
== END | disposition home or self-care (01) ==
LOC: EDSTATUS 10:30 → LAB UVN 11:21
PROVIDERS: Internal Medicine
DX: E11.3293 Type 2 diabetes mellitus with mild nonproliferative diabetic retinopathy without macular edema, bilateral (principal); E78.5 Hyperlipidemia, unspecified; B37.9 Candidiasis, unspecified
CPT/HCPCS: 80048; 85027

== ENCOUNTER → 2022-12-09 | Outpatient (CLI) | payer OTHER ==
[2022-12-09 19:43] LABS: Hematocrit 40.3 % (37.0-53.0); Hemoglobin 12.4 g/dL (13.5-17.5); Mean Corpuscular HGB 26.3 pg (26.0-34.0); Mean Corpuscular HGB Conc 30.8 g/dL (31.5-36.5); Mean Corpuscular Volume 86 fL (80-100); Mean Platelet Volume 11.7 fL (9.1-12.4); Platelet Count 267 K/mm3 (150-400); RDW Coefficient Variation 18.4 % (11.7-14.2); RDW Standard Deviation 57.1 fL (35.1-46.3); Red Blood Cell Count 4.71 M/mm3 (4.30-5.90); White Blood Cell Count 7.62 K/mm3 (4.00-11.30)
[2022-12-09 20:20] LABS: Albumin, Blood 3.1 g/dL (3.4-5.0); Albumin/Globulin Ratio 0.8 (0.8-1.8); Bilirubin, Total 0.5 mg/dL (0.1-1.0); Bun/Creatinine Ratio 20.4 (12.0-20.0); Calcium, Blood 9.1 mg/dL (8.5-10.1); Creatinine, Blood 0.83 mg/dL (0.60-1.20); Globulin, Blood 3.8 g/dL (2.2-4.0); Potassium, Blood 4.7 mmol/L (3.5-5.5); Total Protein, Blood 6.9 g/dL (6.4-8.2)
== END | disposition home or self-care (01) ==
LOC: EDSTATUS 09:48 → LAB UVN 17:29
PROVIDERS: Internal Medicine
DX: I11.0 Hypertensive heart disease with heart failure (principal); I50.42 Chronic combined systolic (congestive) and diastolic (congestive) heart failure; L03.116 Cellulitis of left lower limb
CPT/HCPCS: 80053; 85027

== ENCOUNTER 2023-07-13 09:50 | Observation (INO) | payer OTHER ==
[~2023-07-13] VITALS: Ht 193 cm; Wt 154.1 kg
[2023-07-13 10:13] LABS: BASOPHILS ABSOLUTE AUTO 0.05 K/mm3 (0.00-0.23); BASOPHILS PERCENT AUTO 1 % (0-2); EOSINOPHILS ABSOLUTE AUTO 0.14 K/mm3 (0.00-0.68); EOSINOPHILS PERCENT AUTO 2 % (0-6); Hematocrit 38.1 % (37.0-53.0); IMMATURE GRAN ABSOLUTE AUTO 0.02 K/mm3 (0.00-0.10); IMMATURE GRAN PERCENT AUTO 0 % (0-1); LYMPHOCYTES ABSOLUTE AUTO 0.88 K/mm3 (0.84-5.20); LYMPHOCYTES PERCENT AUTO 14 % (21-46); MONOCYTES PERCENT AUTO 10 % (4-13); Mean Corpuscular HGB 27.8 pg (26.0-34.0); Mean Corpuscular HGB Conc 31.5 g/dL (31.5-36.5); Mean Corpuscular Volume 88 fL (80-100); Mean Platelet Volume 10.1 fL (9.1-12.4); NEUTROPHILS ABSOLUTE AUTO 4.47 K/mm3 (1.96-9.15); NEUTROPHILS PERCENT AUTO 73 % (41-73); Platelet Count 209 K/mm3 (150-400); RDW Coefficient Variation 18.3 % (11.7-14.2); RDW Standard Deviation 59.3 fL (35.1-46.3); Red Blood Cell Count 4.31 M/mm3 (4.30-5.90); White Blood Cell Count 6.16 K/mm3 (4.00-11.30)
[2023-07-13] MEDS ORDERED: ACET325 PO (10:19)
[2023-07-13] MEDS ORDERED: SEMGLEE (Y100 UNIT/2 SC (10:19)
[2023-07-13] MEDS ORDERED: DIGOX125 MC1 PO (10:20)
[2023-07-13] MEDS ORDERED: ALBU90OI INH (10:20)
[2023-07-13] MEDS ORDERED: ELIQUIS5 M2 PO (10:21)
[2023-07-13] MEDS ORDERED: DOCU100 PO (10:21)
[2023-07-13] MEDS ORDERED: ENTRESTO 24 MG1 EACH PO (10:22)
[2023-07-13] MEDS ORDERED: Florastor250 MG PO (10:22)
[2023-07-13] MEDS ORDERED: ATOR80 PO (10:23)
[2023-07-13] MEDS ORDERED: POTCHL20ER PO (10:24)
[2023-07-13] MEDS ORDERED: TRAM50 PO (10:24)
[2023-07-13] MEDS ORDERED: METO25ER PO (10:24)
[2023-07-13 10:34] LABS: C-REACTIVE PROTEIN, EXT RANGE 1.19 mg/dL (0.000-0.300)
[2023-07-13 10:36] LABS: Albumin, Blood 3.2 g/dL (3.4-5.0); Albumin/Globulin Ratio 0.9 (0.8-1.8); Bilirubin, Total 0.7 mg/dL (0.1-1.0); Bun/Creatinine Ratio 30.2 (12.0-20.0); Calcium, Blood 9.4 mg/dL (8.5-10.1); Creatinine, Blood 0.63 mg/dL (0.60-1.20); Globulin, Blood 3.4 g/dL (2.2-4.0); Potassium, Blood 4.2 mmol/L (3.5-5.5); Total Protein, Blood 6.6 g/dL (6.4-8.2)
[2023-07-13 13:49] VITALS: BP 106/59
--- NOTE | 2023-07-13 14:51 | NUR ---
NOTE: FACE SHEET FAXED TO DR. LOJA OFFICE AT 1448. "OK" FAX CAME THROUGH AND BOTH DOCUMENTS ARE IN THE CHART.
[2023-07-13 19:20] VITALS: BP 116/65
[2023-07-14 02:21] VITALS: BP 121/65
[2023-07-14 06:05] LABS: BASOPHILS ABSOLUTE AUTO 0.04 K/mm3 (0.00-0.23); BASOPHILS PERCENT AUTO 1 % (0-2); EOSINOPHILS ABSOLUTE AUTO 0.13 K/mm3 (0.00-0.68); EOSINOPHILS PERCENT AUTO 2 % (0-6); Hemoglobin 11.6 g/dL (13.5-17.5); IMMATURE GRAN ABSOLUTE AUTO 0.02 K/mm3 (0.00-0.10); IMMATURE GRAN PERCENT AUTO 0 % (0-1); LYMPHOCYTES ABSOLUTE AUTO 0.85 K/mm3 (0.84-5.20); LYMPHOCYTES PERCENT AUTO 15 % (21-46); MONOCYTES ABSOLUTE AUTO 0.56 K/mm3 (0.16-1.47); MONOCYTES PERCENT AUTO 10 % (4-13); Mean Corpuscular HGB 27.2 pg (26.0-34.0); Mean Corpuscular HGB Conc 30.5 g/dL (31.5-36.5); Mean Corpuscular Volume 89 fL (80-100); Mean Platelet Volume 11.2 fL (9.1-12.4); NEUTROPHILS ABSOLUTE AUTO 4.12 K/mm3 (1.96-9.15); NEUTROPHILS PERCENT AUTO 72 % (41-73); Platelet Count 218 K/mm3 (150-400); RDW Coefficient Variation 18.3 % (11.7-14.2); RDW Standard Deviation 59.5 fL (35.1-46.3); Red Blood Cell Count 4.27 M/mm3 (4.30-5.90); White Blood Cell Count 5.72 K/mm3 (4.00-11.30)
--- NOTE | 2023-07-14 06:20 | NUR ---
SHIFT SUMMARY PATIENT A/Ox4, HYPERVERBAL AT TIMES. DENIES PAIN NOR DISCOMFORT. VSS, SPO2 MID 90s ON RA. PATIENT INITIALLY REFUSED ANGIOGRAM, REQUESTING TO NOT BE NPO AND TO RECEIVE FOOD IMMEDIATELY. PROVIDER ARRIVED AND SPOKE WITH PATIENT. ANGIOGRAM ON HOLD AT THIS TIME. RIGHT GREAT TOE TIP APPEARES BLACK, CLOSED, NO DRAINAGE, MULTI PUNCH OPERATOR. REFUSED LABS THIS AM, THEN AFTER LAB HAD LEFT, PATIENT CHANGED MIND AND AGREED TO LAB DRAW. PATIENT REQUESTING TO BE ON PO ABX AND TO DISCHARGE BACK TO SNF, WILL PASS ON TO ONCOMING SHIFT OF PATIENT'S REQUEST TO BE DISCUSSED WITH PROVIDER ON ROUNDS, PATIENT VERBALIZED UNDERSTANDING. BED LOW, CALL LIGHT WITHIN REACH.
[2023-07-14 08:05] VITALS: BP 141/91
[2023-07-14 08:34] LABS: Bun/Creatinine Ratio 24.2 (12.0-20.0); Creatinine, Blood 0.7 mg/dL (0.60-1.20); Potassium, Blood 4.1 mmol/L (3.5-5.5)
[2023-07-14 11:09] LABS: Influenza A, PCR NEGATIVE (NEGATIVE); Influenza B, PCR NEGATIVE (NEGATIVE); Resp Syncytial Virus, PCR NEGATIVE (NEGATIVE); SARS-Cov-2 (COVID-19) PCR, MMC NEGATIVE (NEGATIVE)
--- NOTE | 2023-07-14 13:39 | NUR ---
[facility] WITH ALL PERSONAL BELONGINGS. DC PKT GIVEN TO TRANSPORT PERSONNEL. NEW MEPIPLEX PLACED ON L STUMP.
--- NOTE | 2023-07-14 13:42 | NUR ---
PIV DC'D WITH CATH TIP INATCT, NO REDNESS OR SWELLING NOTED.
--- NOTE | 2023-07-14 14:49 | NUR ---
POST TRANSFER REPORT [facility] LANCASTER.
== END 2023-07-14 13:21 ==
LOC: ER 09:50 → MEDS 09:51 → ER 12:52 → MEDS 12:52 → ENPENDDIS 07-14 11:29 → MEDS 07-14 13:21
PROVIDERS: Family Medicine; Student in an Organized Health Care Education/Training Program; ADMIT Hospitalist
DX: E11.52 Type 2 diabetes mellitus with diabetic peripheral angiopathy with gangrene (principal); I96 Gangrene, not elsewhere classified; E11.621 Type 2 diabetes mellitus with foot ulcer; L97.519 Non-pressure chronic ulcer of other part of right foot with unspecified severity; E11.69 Type 2 diabetes mellitus with other specified complication; M86.9 Osteomyelitis, unspecified; E11.42 Type 2 diabetes mellitus with diabetic polyneuropathy; I13.0 Hypertensive heart and chronic kidney disease with heart failure and stage 1 through stage 4 chronic kidney disease, or unspecified chronic kidney disease; N18.9 Chronic kidney disease, unspecified; I50.40 Unspecified combined systolic (congestive) and diastolic (congestive) heart failure; I42.9 Cardiomyopathy, unspecified; I25.10 Atherosclerotic heart disease of native coronary artery without angina pectoris; I25.2 Old myocardial infarction; J44.9 Chronic obstructive pulmonary disease, unspecified; Z89.512 Acquired absence of left leg below knee; Z87.891 Personal history of nicotine dependence; Z79.4 Long term (current) use of insulin; Z79.899 Other long term (current) drug therapy; Z20.822 Contact with and (suspected) exposure to COVID-19
CPT/HCPCS: 0241U; 36415; 73620; 80048; 80053; 82947; 85025; 85651; 86140; 93926; 94640; 94664; 94760; 99285-25; A9270; G0378; J0295; J1644; J1815; J2250; J3010; J7030; J7050

== ENCOUNTER 2023-09-11 10:44 | Emergency (ER) | payer OTHER ==
[~2023-09-11] VITALS: Ht 182.9 cm; Wt 124.7 kg
[~2023-09-11 10:44] MED LIST changes: +ACET325 PO; +ATOR80 PO; +DIGOX125 MC1 PO; +DOCU100 PO; +ELIQUIS5 M2 PO; +ENTRESTO 24 MG1 EACH PO; +Florastor250 MG PO; +METO25ER PO; +SEMGLEE (Y100 UNIT/2 SC; +TRAM50 PO
[2023-09-11 13:00] VITALS: BP 111/72
== END 2023-09-11 14:05 | disposition home or self-care (01) ==
LOC: ER 10:44
DX: R23.8 Other skin changes (principal); E11.42 Type 2 diabetes mellitus with diabetic polyneuropathy; E11.51 Type 2 diabetes mellitus with diabetic peripheral angiopathy without gangrene; E11.22 Type 2 diabetes mellitus with diabetic chronic kidney disease; I13.10 Hypertensive heart and chronic kidney disease without heart failure, with stage 1 through stage 4 chronic kidney disease, or unspecified chronic kidney disease; I50.40 Unspecified combined systolic (congestive) and diastolic (congestive) heart failure; N18.9 Chronic kidney disease, unspecified; I25.10 Atherosclerotic heart disease of native coronary artery without angina pectoris; J44.9 Chronic obstructive pulmonary disease, unspecified; F17.220 Nicotine dependence, chewing tobacco, uncomplicated; Z99.81 Dependence on supplemental oxygen; Z79.4 Long term (current) use of insulin; Z79.01 Long term (current) use of anticoagulants; Z79.51 Long term (current) use of inhaled steroids; Z79.899 Other long term (current) drug therapy; Z79.84 Long term (current) use of oral hypoglycemic drugs
CPT/HCPCS: 99283

== ENCOUNTER 2024-03-06 02:39 | Emergency (ER) | payer OTHER ==
[~2024-03-06] VITALS: Ht 190.5 cm; Wt 136.1 kg
[2024-03-06 03:07] LABS: BASOPHILS ABSOLUTE AUTO 0.06 K/mm3 (0.00-0.23); BASOPHILS PERCENT AUTO 1 % (0-2); EOSINOPHILS ABSOLUTE AUTO 0.13 K/mm3 (0.00-0.68); EOSINOPHILS PERCENT AUTO 1 % (0-6); Hematocrit 43.1 % (37.0-53.0); IMMATURE GRAN ABSOLUTE AUTO 0.13 K/mm3 (0.00-0.10); IMMATURE GRAN PERCENT AUTO 1 % (0-1); LYMPHOCYTES ABSOLUTE AUTO 1.17 K/mm3 (0.84-5.20); LYMPHOCYTES PERCENT AUTO 11 % (21-46); MONOCYTES ABSOLUTE AUTO 0.71 K/mm3 (0.16-1.47); MONOCYTES PERCENT AUTO 7 % (4-13); Mean Corpuscular HGB 28.3 pg (26.0-34.0); Mean Corpuscular HGB Conc 32.5 g/dL (31.5-36.5); Mean Corpuscular Volume 87 fL (80-100); Mean Platelet Volume 10.2 fL (9.1-12.4); NEUTROPHILS ABSOLUTE AUTO 8.27 K/mm3 (1.96-9.15); NEUTROPHILS PERCENT AUTO 79 % (41-73); Platelet Count 196 K/mm3 (150-400); RDW Coefficient Variation 14.1 % (11.7-14.2); RDW Standard Deviation 44.6 fL (35.1-46.3); Red Blood Cell Count 4.95 M/mm3 (4.30-5.90); White Blood Cell Count 10.47 K/mm3 (4.00-11.30)
[2024-03-06 03:30] LABS: Albumin, Blood 2.7 g/dL (3.4-5.0); Albumin/Globulin Ratio 0.7 (0.8-1.8); Bilirubin, Total 0.7 mg/dL (0.1-1.0); Bun/Creatinine Ratio 20.9 (12.0-20.0); Calcium, Blood 8.7 mg/dL (8.5-10.1); Creatinine, Blood 0.81 mg/dL (0.60-1.20); Globulin, Blood 3.8 g/dL (2.2-4.0); Potassium, Blood 4.1 mmol/L (3.5-5.5); Total Protein, Blood 6.5 g/dL (6.4-8.2)
[2024-03-06] MEDS ORDERED: MIRT15ST PO (04:18)
[2024-03-06] MEDS ORDERED: Vancocin HCl125 MG (04:21)
[2024-03-06] MEDS ORDERED: ONDANSETRON HCL 4 MG (04:23)
[2024-03-06 05:00] VITALS: BP 125/74
== END 2024-03-06 05:21 | disposition home or self-care (01) ==
LOC: ER 02:39
PROVIDERS: Emergency Medicine
DX: R53.83 Other fatigue (principal); R53.81 Other malaise; I13.0 Hypertensive heart and chronic kidney disease with heart failure and stage 1 through stage 4 chronic kidney disease, or unspecified chronic kidney disease; E11.22 Type 2 diabetes mellitus with diabetic chronic kidney disease; N18.9 Chronic kidney disease, unspecified; I50.40 Unspecified combined systolic (congestive) and diastolic (congestive) heart failure; E11.42 Type 2 diabetes mellitus with diabetic polyneuropathy; J44.9 Chronic obstructive pulmonary disease, unspecified; F17.220 Nicotine dependence, chewing tobacco, uncomplicated; Z79.84 Long term (current) use of oral hypoglycemic drugs; Z79.4 Long term (current) use of insulin; Z79.899 Other long term (current) drug therapy
CPT/HCPCS: 80053; 85025; 93005; 93010; 99284-25

== ENCOUNTER 2025-08-06 05:16 | Observation (INO) | payer OTHER ==
[~2025-08-06] VITALS: Ht 180.3 cm; Wt 142.5 kg
[~2025-08-06 05:16] MED LIST changes: -ALLO300 PO; +ALLOPURINOL PO; +BISA10S PR; +JARDIANCE25 MG PO; -METO25ER PO; +METO50ER PO; +MIRT15ST PO; +OMEPRAZOLE MAGN20 MG PO; +ONDANSETRON HCL 4 MG; +PREG150 PO; +ROBITUSSIN100 MG/5 M PO; +SENNA LAXATIVE8.6 MG PO; +SPIR50 PO; +TOUJEO SOL300 UNIT/2 SC; +TRULICITY3 MG/0.5 M SC; +Vancocin HCl125 MG; +[UNRECOGNIZED DRUG - OTHER] TOP
[2025-08-06 05:32] LABS: pH Blood Venous 7.39 (7.34-7.37)
[2025-08-06 05:33] LABS: BASOPHILS ABSOLUTE AUTO 0.06 K/mm3 (0.00-0.23); BASOPHILS PERCENT AUTO 1 % (0-2); EOSINOPHILS ABSOLUTE AUTO 0.08 K/mm3 (0.00-0.68); EOSINOPHILS PERCENT AUTO 1 % (0-6); Hematocrit 40.6 % (37.0-53.0); Hemoglobin 11.6 g/dL (13.5-17.5); IMMATURE GRAN ABSOLUTE AUTO 0.17 K/mm3 (0.00-0.10); IMMATURE GRAN PERCENT AUTO 1 % (0-1); LYMPHOCYTES ABSOLUTE AUTO 2.29 K/mm3 (0.84-5.20); LYMPHOCYTES PERCENT AUTO 18 % (21-46); MONOCYTES ABSOLUTE AUTO 0.64 K/mm3 (0.16-1.47); MONOCYTES PERCENT AUTO 5 % (4-13); Mean Corpuscular HGB Conc 28.6 g/dL (31.5-36.5); Mean Corpuscular Volume 92 fL (80-100); NEUTROPHILS ABSOLUTE AUTO 9.57 K/mm3 (1.96-9.15); NEUTROPHILS PERCENT AUTO 75 % (41-73); NRBC ABSOLUTE 0.04 K/mm3 (0.00-0.02); NRBC Auto 0.3 /100 WBC (0.0-0.2); Platelet Count 310 K/mm3 (150-400); RDW Coefficient Variation 17.3 % (11.7-14.2); RDW Standard Deviation 58.3 fL (35.1-46.3)
[2025-08-06 05:36] LABS: Source, Urine Clean Catch
[2025-08-06] MEDS ORDERED: Cefepime HCl 2,000 MG in NS 100 ML IV ONE (05:45)
[2025-08-06] MEDS ORDERED: Vancomycin (Pharmacy Consult) IV PRN (05:45)
[2025-08-06 05:50] LABS: Bilirubin, Urine Neg (Neg); Color, Urine Yellow (P-Yellow); Glucose Qualitative, Urine 3+ (Neg); Ketones, Urine Neg (Neg); Leukocyte Esterase, Urine 3+ (Neg); Protein, Urine 4+ (Neg); Specific Gravity, Urine 1.010 (1.003-1.022); Urobilinogen, Urine 1+ (Normal)
[2025-08-06 05:53] LABS: Red Blood Cells, Urine 50-100 /hpf (0-2); White Blood Cells, Urine TNTC /hpf (0-5)
[2025-08-06] MEDS ORDERED: Naloxone HCl 0.4MG / ML 1ML Vial IV ONE (05:55)
[2025-08-06 06:05] LABS: Alanine Aminotransfer (ALT/SGP 18.0 U/L (12-78); Albumin, Blood 3.1 g/dL (3.4-5.0); Albumin/Globulin Ratio 0.8 (0.8-1.8); Anion Gap 4.0 mmol/L (3-11); Aspartate Aminotrans (AST/SGOT 14.0 U/L (12-37); Bilirubin, Total 0.3 mg/dL (0.1-1.0); Blood Urea Nitrogen 27.0 mg/dL (8-24); CO2, Blood 33.0 mmol/L (21-32); Calcium, Blood 8.6 mg/dL (8.5-10.1); Chloride, Blood 108.0 mmol/L (98-108); Creatinine, Blood 1.25 mg/dL (0.60-1.20); Globulin, Blood 3.7 g/dL (2.2-4.0); Glucose, Blood 138.0 mg/dL (70-99); Magnesium, Blood 2.4 mg/dL (1.6-2.4); Phosphorus, Blood 4.7 mg/dL (2.5-4.9); Potassium, Blood 5.5 mmol/L (3.5-5.5); Sodium, Blood 139.0 mmol/L (136-145); Thyroid Stimulating Hormone 8.39 uIU/mL (0.360-4.800); Total Protein, Blood 6.8 g/dL (6.4-8.2)
[2025-08-06 06:15] LABS: U Amphetamine Screen Not Detected; U Barbiturate Screen Not Detected; U Benzodiazapine Screen Not Detected; U Buprenorphine Screen Not Detected; U Cannabinoids Screen Not Detected; U Cocaine Screen Not Detected; U Methadone Screen Not Detected; U Methamphetamine Screen Not Detected; U Opiates Screen Not Detected; U Oxycodone Screen Not Detected; U Phencyclidine Screen Not Detected
[2025-08-06] MEDS ORDERED: Ipratropium/Albuterol SulF 2.5-0.5MG/3 ML Amp INH PRN (06:35)
[2025-08-06] MEDS ORDERED: Vancomycin (Pharmacy Consult) IV SCH (06:35)
[2025-08-06] MEDS ORDERED: Ondansetron HCl 2 MG / ML 2ML Vial IV PRN (06:35)
[2025-08-06] MEDS ORDERED: NS 1,000 ML IV ONE (06:35)
[2025-08-06] MEDS ORDERED: Vancomycin HCL 2,500 MG in NS 500 ML IV ONE (06:45)
[2025-08-06] MEDS ORDERED: LORazepam 2 MG/ML 1ML Injection IV PRN (08:30)
[2025-08-06] MEDS ORDERED: Morphine Sulfate 20 MG/1ML 1 ML Oral Syringe SL PRN (08:30)
[2025-08-06] MEDS ORDERED: Atropine Sulfate 1% Opth Soln 2ML BTL SL PRN (08:30)
[2025-08-06 08:45] VITALS: BP 117/76
[2025-08-06] MEDS ORDERED: Cefepime HCl 1,000 MG in NS 100 ML IV SCH (10:00)
[2025-08-06] MEDS ORDERED: Glycopyrrolate 0.2 MG/ML 1MLVIAL IV PRN (11:50)
[2025-08-06] MEDS ORDERED: FLU VACC TS2025(65UP)/MF59C/PF 45 MCG/0.5 ML SYRINGE IM SCH (14:00)
--- NOTE | 2025-08-06 17:31 | NUR ---
PATIENT TO UNIT FROM ER. PATIENT UNRESPONSIVE BUT OPENED EYES BRIEFLY DURING MOVEMENT. PATIENTS FAMILY REMAINS AT BEDSIDE FOR THIS SHIFT. CARE CART PLACED IN ROOM FOR FAMILY. ANSWERED ALL QUESTIONS ABLE AND DOCTOR CALLED TO SEE FAMILY. MD LET FAMILY KNOW STAFF WOULD KEEP PATIENT OXYGEN ON HIGH UNTIL ALL FAMILY IS ABLE TO BE IN THE ROOM THEN OXYGEN WILL BE TURNED DOWN TO 3 LPM.
--- NOTE | 2025-08-06 18:46 | NUR ---
PATIENT WOKE UP ABOUT 1810 NOT VERBALLY TALKING BUT EYES OPEN AND RESPONDING TO FAMILY. PAIN MEDS GIVEN AND ATIVAN TO HELP WITH THE TREMOR LIKE MOVEMENTS AND HELP PATIENT RELAX. FAMILY REQUESTED MEDICATION.
== END 2025-08-07 04:45 ==
LOC: ER 05:16 → MEDS 05:17 → ER 06:27 → MEDS 09:06
PROVIDERS: Emergency Medicine; ADMIT Internal Medicine
DX: J96.01 Acute respiratory failure with hypoxia (principal); J69.0 Pneumonitis due to inhalation of food and vomit; N17.9 Acute kidney failure, unspecified; E87.5 Hyperkalemia; N39.0 Urinary tract infection, site not specified; I25.10 Atherosclerotic heart disease of native coronary artery without angina pectoris; J44.9 Chronic obstructive pulmonary disease, unspecified; I42.9 Cardiomyopathy, unspecified; I25.2 Old myocardial infarction; I48.91 Unspecified atrial fibrillation; I44.7 Left bundle-branch block, unspecified; I13.0 Hypertensive heart and chronic kidney disease with heart failure and stage 1 through stage 4 chronic kidney disease, or unspecified chronic kidney disease; I50.40 Unspecified combined systolic (congestive) and diastolic (congestive) heart failure; N18.1 Chronic kidney disease, stage 1; E11.22 Type 2 diabetes mellitus with diabetic chronic kidney disease; E11.51 Type 2 diabetes mellitus with diabetic peripheral angiopathy without gangrene; M10.9 Gout, unspecified; Z66 Do not resuscitate; Z79.4 Long term (current) use of insulin; Z79.01 Long term (current) use of anticoagulants; Z79.84 Long term (current) use of oral hypoglycemic drugs; Z79.85 Long-term (current) use of injectable non-insulin antidiabetic drugs; Z79.899 Other long term (current) drug therapy; Z87.891 Personal history of nicotine dependence; Z89.512 Acquired absence of left leg below knee
CPT/HCPCS: 36415; 70450; 71045; 80053; 80162; 81001; 82803; 83605; 83735; 83880; 84100; 84443; 85025; 87040; 87077; 87086; 87186; 93005; 93010; 96365; 96375; 99285-25; A9270; G0378; J0692; J2060; J3373; J7030; J7040